=== PATIENT | male | born 1985 | race Two or more races ===

== ENCOUNTER 2024-09-30 09:08 | Emergency (ER) | payer MEDICAID, SELFPAY ==
[2024-09-30 09:10] VITALS: BMI 29.4
[2024-09-30 09:27] VITALS: BP 149/89; PULSE 86; RESP 18; TEMP 36.4; O2SAT 98; BMI 31.3
--- NOTE | 2024-09-30 09:32 | XR_ITS ---
Examination: Foot, right, 3 views Technique: AP, oblique, lateral views foot, 3 views Date and time of exam: September 30, 2024 0942 hours INDICATIONS: Nonhealing wounds second third and fourth digits with pain beginning 9 days ago, diabetic FINDINGS: Moderate osteopenia Soft tissue swelling involving the digits Soft tissue vascular calcification No basil cortical bone destruction Moderate osteoarthritis first metatarsophalangeal joint Plantar posterior bony calcaneal spurs IMPRESSION: No basil cortical bone destruction MRI foot without contrast follow-up would best assess for early osteomyelitis
--- NOTE | 2024-09-30 09:32 | PD.EDRME ---
Rapid Medical Screening Exam RME Arrival date/time: 09/30/24 09:08 39-year-old male insulin-dependent diabetic presents emergency department complaints of injury to the right foot patient reports discoloration of the right foot secondary to injury Chief Complaint: Ankle/Foot Injury Time Seen by Provider: 09/30/24 09:26 Vital signs: Vital Signs Temperature 97.5 F 09/30/24 09:27 Pulse Rate 86 09/30/24 09:27 Respiratory Rate 18 09/30/24 09:27 Blood Pressure 149/89 H 09/30/24 09:27 Pulse Oximetry (%) 98 09/30/24 09:27 Oxygen Delivery Method Room Air 09/30/24 09:27
[2024-09-30 10:08] LABS: Lactate (Lactic Acid) 1.2 mMol/L (0.4-2.0)
[2024-09-30 10:11] LABS: Basophils % (Auto) 0 % (0-2.5); Eosinophils # (Auto) 0.1 Thou/mm3 (0.0-0.5); Eosinophils % (Auto) 1 % (0-10); Hematocrit 42.4 % (41.0-53.0); Hemoglobin 14.8 g/dL (13.5-16.0); Immature Granulocytes % (Auto) 1 % (0-0); Immature Granulocytes Auto 0.05 Thou/mm3 (0.00-0.00); Lymphocytes # (Auto) 1.9 Thou/mm3 (1.0-4.8); Lymphocytes % (Auto) 22 % (10-50); Mean Corpuscular HGB Conc 34.9 g/dl (31.0-37.0); Mean Corpuscular Hemoglobin 28.8 pg (25.0-35.0); Mean Corpuscular Volume 83 fL (80-100); Monocytes # (Auto) 0.7 Thou/mm3 (0.0-0.8); Monocytes % (Auto) 8 % (0-12); Neutrophils # (Auto) 5.9 Thou/mm3 (1.8-7.7); Neutrophils % (Auto) 68 % (37-80); Nucleated Red Blood Cell % 0 /100 WBC (0); Platelet Count 286 Thou/mm3 (140-440); RDW Standard Deviation 35.3 fL (35.1-43.9); Red Blood Count 5.13 Miln/mm3 (4.50-5.90); White Blood Count 8.7 Thou/mm3 (3.8-10.6)
[2024-09-30 10:22] LABS: Sed Rate (ESR) 13 mm/hr (0-15)
[2024-09-30 10:39] LABS: Glucose Estimated Average 232 mg/dL (80-131); Hemoglobin A1C 9.7 % Hgb (4.8-6.0)
[2024-09-30 10:40] LABS: Alanine Aminotransferase 29 U/L (10-49); Albumin, Serum 4.8 gm/dL (3.5-5.0); Albumin/Globulin Ratio 1.5 (1.2-2.2); Alkaline Phosphatase 165 U/L (46-116); Anion Gap 5 (7-16); Aspartate Amino Transferase 20 U/L (0-34); BUN/Creatinine Ratio 15 Ratio (12-20); Bilirubin,Total 0.8 mg/dL (0.3-1.2); Blood Urea Nitrogen 16 mg/dL (9-23); C-Reactive Protein 1.5 mg/dL (0.0-0.9); Calcium 9.8 mg/dL (8.3-10.6); Calcium (Corrected) 9.8 mg/dL (8.5-10.1); Carbon Dioxide 30.1 mMol/L (20.0-31.0); Chloride 98 mMol/L (98-107); Creatinine (Component) 1.1 mg/dL (0.6-1.3); Estimated Creatinine Clearance 101.1 mL/min (>60); Globulin 3.2 gm/dL (2.3-3.5); Glucose 304 mg/dL (74-106); Osmolality,Calculated 278 (275-295); Potassium 4.4 mMol/L (3.4-5.1); Procalcitonin < 0.04 ng/ml (0.0-0.49); Sodium 133 mMol/L (136-145); eGFR > 60 See Note
--- NOTE | 2024-09-30 14:06 | EDNOTE_ITS ---
ED General RME/HPI General Chief complaint: Ankle/Foot Injury Stated complaint: WOUND TO RIGHT FOOT, RED AND SCABBED X9 DAYS Time Seen by Provider: 09/30/24 09:26 Arrival date/time: 09/30/24 09:08 CC: Blackness to the tip of the toes on his right foot. HPI on September 23 the patient states he rolled his foot while walking with shoes on and did not pay attention with his foot until a week later when he noticed there was something wrong with his toes. The patient then noticed that the tip of his toes turned black. The patient is a diabetic well-managed, patient denies any localized fever or pain. RME / HPI RME / HPI narrative: 09/30/24 09:08 39-year-old male insulin-dependent diabetic presents emergency department complaints of injury to the right foot patient reports discoloration of the right foot secondary to injury Related Data Previous Rx's ?Medication ?Instructions ?Recorded blood-glucose sensor (FreeStyle #2 ea 10/25/23 Shelly 3 Sensor device) insulin glargine 100 unit/mL (3 10 unit (0.1 mL) subcut QPM #15 mL 10/25/23 mL) subcutaneous pen pen needle, diabetic 29 gauge x #100 ea 10/25/23 1/2 (Pen Needle) atorvastatin 40 mg tablet 40 mg PO QPM #14 tabs 10/26/23 Allergies Allergy/AdvReac Type Severity Reaction Status Date / Time No Known Allergies Allergy Verified 09/30/24 09:12 Review of Systems Review of Systems Narrative Review of Systems: GEN: No fever, no chills, no weight loss EYES: No discharge, no visual changes, no pain HEENT: No ear pain, no congestion, no sore throat PULM: No shortness of breath, no cough, no congestion CV: No chest pain, no dyspnea on exertion, no palpitations GI: No nausea, no vomiting, no diarrhea, no pain, no constipation : No frequency, no urgency, no dysuria MUSC/SKEL: No joint pain, no back pain SKIN: Darkness to tip of toes, no rash PSYCH: No hallucinations, no depression HEME/LYMPH: No easy bleeding or bruising tendencies NEURO: No weakness, no headache ED Exam Narrative Physical exam: [General: Obese not in c acute distress Head normocephalic HEENT: Within acceptable limits Neck is supple nontender Chest equal chest rise nontender to palpation Respiratory: Clear to auscultation no wheezes crackles or rubs CV: Rate rhythm is regular no murmurs rubs or clicks Abdomen is distended secondary to body habitus soft nontender no masses positive bowel sounds all 4 quadrants Back: No CVA tenderness no spinous process tenderness from cervical spine thoracic and lumbar spine Skin: Eschar to the tip of the toes 3 4 and 5 on the right foot, there is cap refill less than 2 seconds in all the toes good range of motion no streaking erythema edema no open fissures or erosion between the toes on the ball of the foot. Otherwise skin is intact no petechiae rash induration ulceration or crepitus Extremities: Moving all extremity against resistance cap refill less than 2 seconds neurosensory intact Neuro: Awake alert oriented x3 Glascow coma 15 no focal deficits] Course Quality Measures none Orders Category Date Time Status XR foot comp RT min 3V Stat Exams 09/30/24 09:32 Completed A1C [Glycohemoglobin w (eAG)] Stat Lab 09/30/24 09:51 Completed Blood Culture (Lab) Stat Lab 09/30/24 09:51 Received CBC Stat Lab 09/30/24 09:51 Completed CMP [Comprehensive Metabolic Panel] Stat Lab 09/30/24 09:51 Completed CRP [C-Reactive Protein] Stat Lab 09/30/24 09:51 Completed ESR [Sed Rate (ESR)] Stat Lab 09/30/24 09:51 Completed Lactic Acid [Lactate (Lactic Acid)] Stat Lab 09/30/24 09:51 Completed Procalcitonin Stat Lab 09/30/24 09:51 Completed Vital Signs Vital signs: Vital Signs Temperature 97.5 F 09/30/24 09:27 Pulse Rate 86 09/30/24 09:27 Respiratory Rate 18 09/30/24 09:27 Blood Pressure 149/89 H 09/30/24 09:27 Pulse Oximetry (%) 98 09/30/24 09:27 Oxygen Delivery Method Room Air 09/30/24 09:27 [facility] Patient data External records reviewed:: [facility] previous records Clinical information provided by:: patient Social determinants that could affect healthcare access:: none Patient has the following chronic illnesses:: Diabetes How is presenting disease/condition affected by chronic disease/condition?: e xacerbated by Evaluation data The following diagnostics were reviewed and interpreted by me:: lab results and radiology exam(s) Lab and/or radiology exams considered but not ordered:: CBC shows no acute leukocytosis anemia thrombocytopenia CMP shows an elevated blood glucose later level of 320, no other electrolyte imbalances renal impairment transaminitis or T. bili elevation C-reactive protein is mildly elevated X-ray shows no bony erosion of the digits Interpretation Summary: This appears to be more of an eschar type situation without any localized or endemic infection. Will be discharged to follow-up with primary care provider for referral to wound management. Medications Medications considered but not ordered:: None Medication administrations:: None Consultations Consultation(s) initiated? (list below): No Diagnosis Differential Diagnosis ED Complaint MDM: Cellulitis abscess osteomyelitis of the foot Most likely diagnosis given after review of the tests above:: Toe eschar Admission Indicated Admission indicated?: not indicated Explain why admission is indicated or not indicated:: Stable for outpatient follow-up Admission Request Was there a request for admission?: No Disposition Plan Disposition Plan: Discharge Discharge Attestation Discharge Attestation: The patient and all family members were given an opportunity to ask questions and understood the discharge instructions. Discharge instructions specifically effects, indications for sooner follow up or return to the emergency department, and the expected course of current diagnosis. Patient condition: Stable Medical Decision Making Differential Diagnosis Differential Diagnosis: Cellulitis abscess osteomyelitis of the foot Lab Data 09/30/24 09:51 09/30/24 09:51 Labs: Lab Results 09/30/24 Range/Units 09:51 WBC 8.7 (3.8-10.6) Thou/mm3 RBC 5.13 (4.50-5.90) Miln/mm3 Hgb 14.8 (13.5-16.0) g/dL Hct 42.4 (41.0-53.0) % MCV 83 (80-100) fL MCH 28.8 (25.0-35.0) pg MCHC 34.9 (31.0-37.0) g/dl RDW Std Deviation 35.3 (35.1-43.9) fL Plt Count 286 (140-440) Thou/mm3 Neut % (Auto) 68 (37-80) % Lymph % (Auto) 22 (10-50) % Foster % (Auto) 8 (0-12) % Eos % (Auto) 1 (0-10) % Baso % (Auto) 0 (0-2.5) % Neut # (Auto) 5.9 (1.8-7.7) Thou/mm3 Lymph # (Auto) 1.9 (1.0-4.8) Thou/mm3 Foster # (Auto) 0.7 (0.0-0.8) Thou/mm3 Eos # (Auto) 0.1 (0.0-0.5) Thou/mm3 Baso # (Auto) 0.0 (0.0-0.2) Thou/mm3 Immature Gran # (Auto) 0.05 H (0.00-0.00) Thou/mm3 Absolute Nucleated RBC 0.00 (0.00-0.00) Thou/mm3 Immature Gran % 1 H (0-0) % Nucleated RBC % 0 (0) /100 WBC ESR 13 (0-15) mm/hr Sodium 133 L (136-145) mMol/L Potassium 4.4 (3.4-5.1) mMol/L Chloride 98 (98-107) mMol/L Carbon Dioxide 30.1 (20.0-31.0) mMol/L Anion Gap 5 L (7-16) BUN 16 (9-23) mg/dL Creatinine 1.1 (0.6-1.3) mg/dL Estim Creat Clear Calc 101.1 (>60) mL/min eGFR > 60 (60 - ) See Note BUN/Creatinine Ratio 15 (12-20) Ratio Glucose 304 H (74-106) mg/dL Estimated Ave Glu mg/dL 232 H (80-131) mg/dL Hemoglobin A1c 9.7 H (4.8-6.0) % Hgb Calculated Osmolality 278 (275-295) Lactic Acid 1.2 (0.4-2.0) mMol/L Calcium 9.8 (8.3-10.6) mg/dL Corrected Calcium 9.8 (8.5-10.1) mg/dL Total Bilirubin 0.8 (0.3-1.2) mg/dL AST 20 (0-34) U/L ALT 29 (10-49) U/L Alkaline Phosphatase 165 H (46-116) U/L C-Reactive Prot, Quant 1.5 H (0.0-0.9) mg/dL Total Protein 8.0 (5.7-8.2) gm/dL Albumin 4.8 (3.5-5.0) gm/dL Globulin 3.2 (2.3-3.5) gm/dL Albumin/Globulin Ratio 1.5 (1.2-2.2) Procalcitonin < 0.04 (0.0-0.49) ng/ml Discharge Plan Plan Patient Disposition: HOME (Self Care) Patient condition on transfer: Stable Prescriptions/Referrals Prescriptions/Med Rec: No Action insulin glargine 100 unit/mL (3 mL) insulin pen 10 unit subcut QPM Qty: 15 0RF (DME) pen needle, diabetic [Pen Needle] 29 gauge x 1/2 needle See Rx Instructions .Route Qty: 100 0RF Rx Instructions: Once per day (DME) FreeStyle Shelly 3 Sensor Device See Rx Instructions .Route Qty: 2 0RF Rx Instructions: Use daily atorvastatin 40 mg tablet 40 mg PO QPM Qty: 14 0RF Referrals: Skyler Guerra MD [Primary Care Provider] - In 1 week Problem List Clinical Impression: Diabetes mellitus, Eschar of toe, Hyperglycemia Patient/Caregiver Discharge Instructions Other Activity Instructions:: Keep your toes clean and dry take a picture of them every day, expect them every day. Follow-up with your primary care provider, get a referral for wound management if there is redness pus or streaking in the foot return immediately to the ER for reevaluation. Education Materials: Diabetes: Meal Planning Print Language: Greenlandic Stand Alone Forms: Ileana Award Info., Patient Portal Info Letter, Work/School Release NGA/NANO Supervising Physician NGA/NANO Supervising Physician: Frankie Marion ENP
[2024-09-30 15:15] VITALS: BP 120/60; PULSE 71; RESP 16; O2SAT 98
== END 2024-09-30 15:15 | disposition home or self-care (01) ==
PROVIDERS: Nurse Practitioner Primary Care; Emergency Provider Emergency Medicine; PCP Family Medicine
DX: S99.921A Unspecified injury of right foot, initial encounter (principal); X50.1XXA Overexertion from prolonged static or awkward postures, initial encounter; Y93.01 Activity, walking, marching and hiking
CPT/HCPCS: 36415; 73630; 80053; 83036; 83605; 84145; 85025; 85652; 86140; 87040; 99283

== ENCOUNTER 2024-10-27 12:08 | Inpatient (IN) | payer MEDICAID, SELFPAY ==
[2024-10-27 12:30] VITALS: BP 135/87; PULSE 88; RESP 19; TEMP 37.2; O2SAT 98; BMI 29.0
--- NOTE | 2024-10-27 12:31 | XR_ITS ---
Examination: Foot, right, 3 views Technique: AP, oblique, lateral views foot, 3 views Date and time of exam: October 27, 2024 1258 hours INDICATIONS: Nonhealing wound involving the foot this week FINDINGS: Fracture at the base of the proximal phalanx fourth digit Prominent osteomyelitis proximal middle and distal phalanges fourth digit Also osteomyelitis ungual tuft tip 6 distal phalanges third and second digits IMPRESSION: Extensive osteomyelitis, consider MRI foot without contrast follow-up
--- NOTE | 2024-10-27 12:31 | PD.EDRME ---
Rapid Medical Screening Exam RME Arrival date/time: 10/27/24 12:08 39-year-old male presents emergency department today complains of infection to the right foot patient had outpatient imaging which shows the patient is osteomyelitis Chief Complaint: Ankle/Foot Injury
[2024-10-27 12:49] LABS: Lactate (Lactic Acid) 0.9 mMol/L (0.4-2.0)
[2024-10-27 12:54] LABS: Basophils % (Auto) 0 % (0-2.5); Eosinophils # (Auto) 0.1 Thou/mm3 (0.0-0.5); Eosinophils % (Auto) 1 % (0-10); Hematocrit 41.8 % (41.0-53.0); Hemoglobin 14.2 g/dL (13.5-16.0); Immature Granulocytes % (Auto) 0 % (0-0); Immature Granulocytes Auto 0.03 Thou/mm3 (0.00-0.00); Lymphocytes # (Auto) 2.2 Thou/mm3 (1.0-4.8); Lymphocytes % (Auto) 22 % (10-50); Mean Corpuscular Hemoglobin 27.8 pg (25.0-35.0); Mean Corpuscular Volume 82 fL (80-100); Monocytes # (Auto) 0.7 Thou/mm3 (0.0-0.8); Monocytes % (Auto) 7 % (0-12); Neutrophils # (Auto) 7.2 Thou/mm3 (1.8-7.7); Neutrophils % (Auto) 71 % (37-80); Nucleated Red Blood Cell % 0 /100 WBC (0); Platelet Count 451 Thou/mm3 (140-440); RDW Standard Deviation 34.9 fL (35.1-43.9); White Blood Count 10.2 Thou/mm3 (3.8-10.6)
[2024-10-27 13:10] LABS: Sed Rate (ESR) 46 mm/hr (0-15)
[2024-10-27 13:16] LABS: INR 1.1 (0.9-1.3)
[2024-10-27 13:18] LABS: Alanine Aminotransferase 21 U/L (10-49); Albumin, Serum 4.8 gm/dL (3.5-5.0); Albumin/Globulin Ratio 1.3 (1.2-2.2); Alkaline Phosphatase 146 U/L (46-116); Anion Gap 6 (7-16); BUN/Creatinine Ratio 18 Ratio (12-20); Bilirubin,Total 0.6 mg/dL (0.3-1.2); Blood Urea Nitrogen 18 mg/dL (9-23); C-Reactive Protein 2.1 mg/dL (0.0-0.9); Calcium 9.8 mg/dL (8.3-10.6); Calcium (Corrected) 9.8 mg/dL (8.5-10.1); Carbon Dioxide 29.4 mMol/L (20.0-31.0); Chloride 96 mMol/L (98-107); Estimated Creatinine Clearance 110.6 mL/min (>60); Globulin 3.8 gm/dL (2.3-3.5); Glucose 250 mg/dL (74-106); Osmolality,Calculated 272 (275-295); Potassium 4.5 mMol/L (3.4-5.1); Procalcitonin 0.05 ng/ml (0.0-0.49); Sodium 131 mMol/L (136-145); Total Protein 8.6 gm/dL (5.7-8.2); eGFR > 60 See Note
[2024-10-27 13:22] LABS: Aspartate Amino Transferase 12 U/L (0-34)
--- NOTE | 2024-10-27 16:11 | EDNOTE_ITS ---
ED General RME/HPI General Chief complaint: Ankle/Foot Injury Stated complaint: RIGHT 3 TOES INFECTED/BLACKENED; POSSIBLE AMPUT Time Seen by Provider: 10/27/24 16:00 Arrival date/time: 10/27/24 12:08 CC: Right foot pain HPI patient is a diabetic who tripped while walking, damaging his fourth and fifth digit of his toes 1 month ago and they have progressively gotten worse now they are black in the tip. Patient states localized pain is a 2-3 on a 10 scale. Patient was seen by PCP and referred to the ER for rule out osteomyelitis. Patient admits his diabetes have been poorly managed. RME / HPI RME / HPI narrative: 10/27/24 12:08 39-year-old male presents emergency department today complains of infection to the right foot patient had outpatient imaging which shows the patient is osteomyelitis Related Data Previous Rx's ?Medication ?Instructions ?Recorded blood-glucose sensor (FreeStyle #2 ea 10/25/23 Shelly 3 Sensor device) insulin glargine 100 unit/mL (3 10 unit (0.1 mL) subcut QPM #15 mL 10/25/23 mL) subcutaneous pen pen needle, diabetic 29 gauge x #100 ea 10/25/23 1/2 (Pen Needle) atorvastatin 40 mg tablet 40 mg PO QPM #14 tabs 10/26/23 Allergies Allergy/AdvReac Type Severity Reaction Status Date / Time No Known Allergies Allergy Verified 10/27/24 12:10 Review of Systems Review of Systems Narrative Review of Systems: GEN: No fever, no chills, no weight loss EYES: No discharge, no visual changes, no pain HEENT: No ear pain, no congestion, no sore throat PULM: No shortness of breath, no cough, no congestion CV: No chest pain, no dyspnea on exertion, no palpitations GI: No nausea, no vomiting, no diarrhea, no pain, no constipation : No frequency, no urgency, no dysuria MUSC/SKEL: No joint pain, no back pain SKIN: No rash PSYCH: No hallucinations, no depression HEME/LYMPH: No easy bleeding or bruising tendencies NEURO: No weakness, no headache Past Medical History Past Medical History NEUROLOGIC: Negative Neurological Disorders CARDIAC: Positive Cardiac Disorders and Hypertension; Negative Congestive Heart Failure RESPIRATORY: Negative Chronic Obstructive Pulmonary Disease (COPD) GASTROINTESTINAL: Negative Gastrointestinal Disorders GENITOURINARY: Negative Genitourinary Disorders or Renal Disease MUSCULOSKELETAL: Negative Musculoskeletal Disorders ENDOCRINE: Negative Endocrine Disorders, Diabetes Mellitus Type 1 or Diabetes Mellitus Type 2 HEMATOLOGIC: Negative Blood Disorders Social History SMOKING STATUS: Light (< 1 pack/day) ED Exam Narrative Physical exam: [General: Not in any acute distress Head normocephalic HEENT: Within acceptable limits Neck is supple nontender Chest equal chest rise nontender to palpation Respiratory: Clear to auscultation no wheezes crackles or rubs CV: Rate rhythm is regular no murmurs rubs or clicks Abdomen is soft nontender no masses positive bowel sounds all 4 quadrants Back: No CVA tenderness no spinous process tenderness from cervical spine thoracic and lumbar spine Skin: Right lower extremity: Foot: Patient has eschar to the tip of the fourth and fifth digit with open ulceration that is serous oozing proximal to this, there is no streaking or erythema to the dorsum of the foot nor any sole or foot involvement. Otherwise skin is intact no petechiae rash induration ulceration or crepitus Extremities: Decreased range of motion of the toes secondary to pain. Moving all other extremities against resistance cap refill less than 2 seconds neurosensory intact Neuro: Awake alert oriented x3 Glascow coma 15 no focal deficits] Course Course Course Narrative: Patient's case discussed with resident for Dr. Cooper agrees to accept the patient for admission. Quality Measures none Orders Category Date Time Status Admit to Inpatient Status Routine Admission 10/27/24 17:17 Active Patient Condition Routine Admission 10/27/24 17:17 Ordered Activity as Tolerated Routine Care 10/27/24 17:18 Ordered Continuous Pulse Oximetry NOW Care 10/27/24 17:19 Completed Education, Diabetic NOW Care 10/27/24 17:30 Ordered NPO after Midnight ONCE Care 10/27/24 17:19 Active Notify provider NEEDED Care 10/27/24 17:17 Active Saline [Insert IV] NOW Care 10/27/24 16:09 Active Sequential Compression Device QSHIFT Care 10/27/24 17:19 Active Wound Care PRN Care 10/27/24 17:22 Active Consult to General Surgery Stat Cons 10/27/24 16:10 Ordered Referral Registered Dietitian Routine Cons 10/27/24 17:22 Active Diet Carbohydrate Consistent Diet 10/27/24 Dinner Active Diet NPO after Midnight Diet 10/28/24 00:01 Active XR foot comp RT min 3V Stat Exams 10/27/24 12:31 Completed A1C [Glycohemoglobin w (eAG)] AM DRAW Lab 10/28/24 05:00 Ordered Blood Culture (Lab) Stat Lab 10/27/24 12:30 Received CBC AM DRAW Lab 10/28/24 05:00 Ordered CBC AM DRAW Lab 10/29/24 05:00 Ordered CBC AM DRAW Lab 10/30/24 05:00 Ordered CBC Stat Lab 10/27/24 12:35 Completed CMP [Comprehensive Metabolic Panel] AM DRAW Lab 10/29/24 05:00 Ordered CMP [Comprehensive Metabolic Panel] AM DRAW Lab 10/30/24 05:00 Ordered CMP [Comprehensive Metabolic Panel] Stat Lab 10/27/24 12:35 Completed CRP [C-Reactive Protein] Stat Lab 10/27/24 12:35 Completed Comprehensive Metabolic Panel AM DRAW Lab 10/28/24 05:00 Ordered ESR [Sed Rate (ESR)] Stat Lab 10/27/24 12:35 Completed Lactic Acid [Lactate (Lactic Acid)] Stat Lab 10/27/24 12:35 Completed Lipid Panel AM DRAW Lab 10/28/24 05:00 Ordered PT [Prothrombin Time with INR] Stat Lab 10/27/24 12:35 Completed Procalcitonin Stat Lab 10/27/24 12:35 Completed Thyroid Stimulating Hormone AM DRAW Lab 10/28/24 05:00 Ordered Wound Culture and Gram Stain Routine Lab 10/27/24 17:31 Ordered Acetaminophen Tab [Tylenol Tab] Med 10/27/24 17:19 Active 650 mg PO Q6H PRN Dextrose 50% Syr [D50w Syringe Abboject] Med 10/27/24 17:23 Active 25 ml IV Q15MIN PRN Dextrose 50% Syr [D50w Syringe Abboject] Med 10/27/24 17:23 Active 50 ml IV Q15MIN PRN Glucagon Inj Med 10/27/24 17:23 Active 1 mg IM Q15MIN PRN HYDROcodone*/APAP 5/325 [Post 5/325] Med 10/27/24 17:19 Active 1 tab PO Q4HR PRN INSULIN LISPRO (AdmeLOG) [HumaLOG] Med 10/27/24 18:00 Active See Protocol SC Q6HR Insulin Glargine Inj [Lantus Inj] Med 10/27/24 21:00 Active 10 unit SC HS Nicotine Patch [Nicoderm Patch] Med 10/27/24 17:45 Active 7 mg TOP QDAY Piper/Tazo Inj [Zosyn Inj] 3.375 gm Med 10/27/24 16:09 Discontinued Sodium Chloride 0.9% (P) [Ns 0.9% (P)] 50 ml IV X1 Tet,Diphth,Pertuss(Acell)-Tdap [Boostrix Vacc] Med 10/27/24 17:32 Discontinued 0.5 ml IMI .ONCE ONE Vancomycin Inj 1,000 mg Med 10/27/24 17:45 Discontinued Vancomycin Inj 750 mg Sodium Chloride 0.9% 500 ml [Ns] 500 ml IV X1 Vancomycin Pharmacy to Dose Med 10/27/24 17:30 Active 1 each IV QDAY cefTRIAXone [Rocephin] 2 gm Med 10/28/24 01:00 Active Sodium Chloride 0.9% (P) [Ns 0.9% (P)] 50 ml IV QDAY@2100 Code Status Routine Oth 10/27/24 17:17 Ordered Oxygen Delivery PRN RT 10/27/24 17:19 Active Vital Signs Vital signs: Vital Signs Temperature 99.0 F 10/27/24 12:30 Pulse Rate 88 10/27/24 12:30 Respiratory Rate 19 10/27/24 12:30 Blood Pressure 135/87 H 10/27/24 12:30 Pulse Oximetry (%) 98 10/27/24 12:30 Oxygen Delivery Method Room Air 10/27/24 12:30 [facility] Patient data External records reviewed:: [facility] previous records Clinical information provided by:: patient Social determinants that could affect healthcare access:: none Patient has the following chronic illnesses:: Diabetes How is presenting disease/condition affected by chronic disease/condition?: e xacerbated by Evaluation data The following diagnostics were reviewed and interpreted by me:: lab results and radiology exam(s) Lab and/or radiology exams considered but not ordered:: CBC shows no acute leukocytosis anemia thrombocytopenia CMP shows elevated blood glucose level mild hyponatremia, no other electrolyte imbalances renal impairment transaminitis or T. bili elevation. Coags within acceptable limits C-reactive protein of 2.1 ESR at 46. Pro-Too is negative Osteomyelitis of the fourth fifth and second digits of the foot as interpreted by me read by radiology Interpretation Summary: Osteomyelitis is significant to the toes. Discussed with Dr. Batista agrees to consult. Will admit the patient for long-term antibiotics. Medications Medications considered but not ordered:: None Medication administrations:: Medication Administration History Acetaminophen (Acetaminophen 325 Mg Tablet) 650 mg PO Q6H PRN PRN Reason: Mild Pain 1-3 or Fever >100.4 Stop: 11/26/24 17:18 Hydrocodone Bitart/Acetaminophen (Hydrocodone/Apap 5/325 Tablet) 1 tab PO Q4HR PRN PRN Reason: PAIN SCALE 4-6 (Moderate Stop: 11/01/24 17:18 Dextrose (Dextrose 50%-Water Inj 50 Ml Syringe) 25 ml IV Q15MIN PRN PRN Reason: BG 50-70 responsive npo pt Stop: 11/26/24 17:22 Dextrose (Dextrose 50%-Water Inj 50 Ml Syringe) 50 ml IV Q15MIN PRN PRN Reason: BG <50 OR BG <70 & pt unresponsive Stop: 11/26/24 17:22 Glucagon (Glucagon Inj 1 Mg Vial) 1 mg IM Q15MIN PRN PRN Reason: BG <70, and no IV access Heparin Sodium (Porcine) (Heparin Sod Inj 5000 Unit/Ml Vial) 5,000 unit SC Q12H [facility] Stop: 11/10/24 18:14 Last Admin: 10/27/24 18:48 Dose: 5,000 unit Documented By: Co-signed By: BASSEM Ceftriaxone Sodium 2 gm/ (Sodium Chloride) 50 mls @ 100 mls/hr IV QDAY@2100 RAMILA Stop: 11/04/24 00:59 Insulin Glargine (Insulin Glargine (Lantus) 5 Unit/0.05 Ml (Per 5 Units)) 10 unit SC HS [facility] Stop: 11/26/24 20:59 Insulin Human Lispro (Insulin Lispro (Admelog) 1 Unit/0.01 Ml Unit) 0 unit SC Q6HR [facility]; Protocol Stop: 11/26/24 17:59 Last Admin: 10/27/24 18:49 Dose: 2 unit Documented By: MS Co-signed By: BASSEM Morphine Sulfate (Morphine Sulf Inj 10 Mg/Ml Vial) 1 mg IVP Q4HR PRN PRN Reason: PAIN SCALE 7-10(Mod-Sev Stop: 11/01/24 18:01 Nicotine (Nicotine Patch 7 Mg/24 Hr Patch.Td24) 7 mg TOP QDAY [facility]ILA Stop: 11/26/24 17:44 Last Admin: 10/27/24 18:52 Dose: Not Given Documented By: Non-Admin Reason: Patient Refused Pharmacy Consult (Vancomycin Pharmacy To Dose 1 Each Each) 1 each IV QDAY [facility]ILA Stop: 11/26/24 17:29 Last Admin: 10/27/24 19:09 Dose: Not Given Documented By: BASSEM Non-Admin Reason: Duplicate Medication on eMAR Discontinued Medications Diphtheria/Tetanus/Acell Pertussis (Diphth,Pertuss(Acell),Tet Vac 0.5 Ml Vial) 0.5 ml IMi .ONCE ONE Stop: 10/27/24 17:33 Last Admin: 10/27/24 18:55 Dose: 0.5 ml Documented By: Piperacillin Sod/Tazobactam (Sod 3.375 gm/ Sodium Chloride) 50 mls @ 100 mls/hr IV X1 ONE Stop: 10/27/24 16:38 Last Infusion: 10/27/24 17:24 Dose: Infused Documented By: Admin: 10/27/24 16:41 Dose: 100 mls/hr Documented By: Vancomycin HCl 1,000 mg/Vancomycin HCl 750 mg/ Sodium Chloride 500 mls @ 175 mls/hr IV X1 ONE Stop: 10/27/24 20:36 Last Admin: 10/27/24 18:48 Dose: 175 mls/hr Documented By: None Consultations Consultation(s) initiated? (list below): No Diagnosis Differential Diagnosis ED Complaint MDM: Osteomyelitis cellulitis abscess Most likely diagnosis given after review of the tests above:: Foot osteomyelitis Admission Indicated Admission indicated?: indicated Explain why admission is indicated or not indicated:: Further medical management Admission Request Was there a request for admission?: No Disposition Plan Disposition Plan: Admit Medical Decision Making Differential Diagnosis Differential Diagnosis: Osteomyelitis cellulitis abscess Lab Data 10/27/24 12:35 10/27/24 12:35 Labs: Lab Results 10/27/24 Range/Units 12:35 WBC 10.2 (3.8-10.6) Thou/mm3 RBC 5.10 (4.50-5.90) Miln/mm3 Hgb 14.2 (13.5-16.0) g/dL Hct 41.8 (41.0-53.0) % MCV 82 (80-100) fL MCH 27.8 (25.0-35.0) pg MCHC 34.0 (31.0-37.0) g/dl RDW Std Deviation 34.9 L (35.1-43.9) fL Plt Count 451 H D (140-440) Thou/mm3 Neut % (Auto) 71 (37-80) % Lymph % (Auto) 22 (10-50) % Zapata % (Auto) 7 (0-12) % Eos % (Auto) 1 (0-10) % Baso % (Auto) 0 (0-2.5) % Neut # (Auto) 7.2 (1.8-7.7) Thou/mm3 Lymph # (Auto) 2.2 (1.0-4.8) Thou/mm3 Zapata # (Auto) 0.7 (0.0-0.8) Thou/mm3 Eos # (Auto) 0.1 (0.0-0.5) Thou/mm3 Baso # (Auto) 0.0 (0.0-0.2) Thou/mm3 Immature Gran # (Auto) 0.03 H (0.00-0.00) Thou/mm3 Absolute Nucleated RBC 0.00 (0.00-0.00) Thou/mm3 Immature Gran % 0 (0-0) % Nucleated RBC % 0 (0) /100 WBC ESR 46 H (0-15) mm/hr PT 12.0 (9.0-12.2) Seconds INR 1.1 (0.9-1.3) Sodium 131 L (136-145) mMol/L Potassium 4.5 (3.4-5.1) mMol/L Chloride 96 L (98-107) mMol/L Carbon Dioxide 29.4 (20.0-31.0) mMol/L Anion Gap 6 L (7-16) BUN 18 (9-23) mg/dL Creatinine 1.0 (0.6-1.3) mg/dL Estim Creat Clear Calc 110.6 (>60) mL/min eGFR > 60 (60 - ) See Note BUN/Creatinine Ratio 18 (12-20) Ratio Glucose 250 H (74-106) mg/dL Calculated Osmolality 272 L (275-295) Lactic Acid 0.9 (0.4-2.0) mMol/L Calcium 9.8 (8.3-10.6) mg/dL Corrected Calcium 9.8 (8.5-10.1) mg/dL Total Bilirubin 0.6 (0.3-1.2) mg/dL AST 12 (0-34) U/L ALT 21 (10-49) U/L Alkaline Phosphatase 146 H (46-116) U/L C-Reactive Prot, Quant 2.1 H (0.0-0.9) mg/dL Total Protein 8.6 H (5.7-8.2) gm/dL Albumin 4.8 (3.5-5.0) gm/dL Globulin 3.8 H (2.3-3.5) gm/dL Albumin/Globulin Ratio 1.3 (1.2-2.2) Procalcitonin 0.05 (0.0-0.49) ng/ml Discharge Plan Plan Patient Disposition: HOME (Self Care) Patient condition on transfer: Stable Problem List Clinical Impression: Acute osteomyelitis of toe of right foot PA/[employer] Supervising Physician NGA/[employer] Supervising Physician: Frankie Marion ENP
[2024-10-27 16:31] VITALS: BP 146/103; PULSE 77; RESP 18; TEMP 36.7; O2SAT 96
[2024-10-27] MEDS: PIPER/TAZO INJ 3.375 GM in SODIUM CHLORIDE 0.9% (P) 50 ML IV (16:41)
[2024-10-27 17:35] VITALS: PULSE 79; RESP 18; RESP 99
--- NOTE | 2024-10-27 17:45 | ESHP_ITS ---
<Statement entered by Dejon Regan MD - 10/27/24 18:01> Patient was seen and examined at the bedside. This patient 39-year-old male with past medical history of DM type II, hypertension, active smoking presented to the ED with complaint of right foot pain after tripping off a month ago. Patient was recently discharged from the hospital for management of DKA. Foot x-ray was consistent with osteomyelitis. Surgery has been consulted for further evaluation. Started 2 g ceftriaxone and IV vancomycin and ordered blood cultures with MRSA screen with wound care. Surgery will see the patient today. Patient is open to proceed with surgery/amputation if needed. Will keep him n.p.o. after midnight and follow surgery recommendations. Ordered basal bolus insulin regime for blood sugar management. Med rec pending. All labs and orders were reviewed. I saw and examined the patient, and I agree with current management stated by Dr Star MD,PGY1. Plan of care was discussed with the attending physician and resident physician. Disclaimer: Despite multiple revisions, due to the dictation software being used, the document bellow may not be free of grammatical errors including phonetic/typographic errors. However, this does not deter from our commitment to providing health care in the patient's best interest in mind. Dr. Shereen MD, PGY 2 Documentation for date of: 10/27/24 HPI History of Present Illness History of present illness: CC: Right foot wound Patient is a 39-year-old male with a past medical history of diabetes mellitus type 2 on insulin, cigarette use, and stated past medical history of HTN resolved. Patient presented to the emergency room with a chief complaint of of right foot pain secondary to trauma occurring about 1 month ago. Patient stated that he has been having subjective pyrexia and chills at home. Pain 2/10. Patient stated he tripped on a rock and hit his foot on that rock killing his skin back. Patient stated he has never had this happen before. Stated he follows with PCP Dr. Arredondo who recently prescribed amoxicillin/clavulanate 875 125 mg tablet as an outpatient approximately 1 week ago. Patient stated he has not seen improvement since. Patient cannot recall when his last tetanus shot was. Patient recently seen in the ER and discharged from the ER on 09/30/2024 wenc at that time foot x-ray showed soft tissue swelling involving the digits with no basil bone destruction of the right foot-at that time not DC'd on antibiotics. Previous hospitalization 10/25/2023 was diagnosed with diabetes mellitus/DKA. Patient stated he takes metformin 1000 twice daily, insulin Lantus 10 units at bedtime. positive for polydipsia. Admitted on 10/27/2024 for osteomyelitits of right foot. ER Course: Vitals: Temperature 99, BP 135/87, HR 88, RR 19, P O2 98% RA Foot X-ray (10/27/2024): Fracture at the base of the proximal phalanx fourth digit Prominent osteomyelitis proximal middle and distal phalanges fourth digit Also osteomyelitis ungual tuft tip 6 distal phalanges third and second digits WBC (10/27/2024): 10.2 CMP (10/27/2024): NA 131--->Na corrected 133, osmolarity 272 K4.5, BUN 18, creatinine 1, GFR greater than 60, Glucose 250, Alkaline Phosphatase 146 (H), C- Reactive Prot 2.1 Utox (10/22/2024) negative A1c (10/22/2024) 9.7, Estimate Glucose 232 (10/22/2024) Piperacillin/Tazobactam X1 PMH: Diabetes Mellitus Type 2-insulin dependent HTN (stated no longer an active problem) Smoking (tobacco) Past Surgical History: Remote Rotator cuff surgery Home Medication: Lantus 10 units HS Metformin 1000 BID Social History: Alcohol socially Tobacco/cigarettes 10+ years about 1 pack per week-->2 pack year Denied illicit drug use Allergies: None Code Status: Fulle Code Review of Systems Review of Systems Narrative Review of Systems: General appearance: NO weight change, NO fatigue, NO weakness, YES Subjective fever, NO chills, NO night sweats, No cough Skin: NO rash, NO itching, NO sores, NO moles HEENT: YES Trauma-stabled right foot with rock-one month ago, NO nausea, NO vomiting, NO visual changes, NO blurry vision, NO double vision, NO tinnitus, NO vertigo, NO ear discharge, NO rhinorrhea, NO stuffiness, NO sneezing, NO allergy, NO epistaxis. NO Hoarseness, NO sore throat, NO swollen neck. Cardiac: NO Palpitations, NO dyspnea on exertion, NO orthopnea, NO paroxysmal nocturnal dyspnea, NO edema Respiratory: NO Shortness of Breath, NO Wheezing, NO Cough, NO Sputum, NO hemoptysis GI:NO appetite, NO nausea, NO vomiting, NO dysphagia, NO changes in bowel frequency, NO stool color, NO diarrhea, NO constipation, NO hemetemesis, NO hemorrhoids, NO melena, NO hematechezia, NO abdominal pain, NO jaundice Renal: NO frequency, NO hesitancy, NO urgency, NO hematuria, NO nocturia, NO incontinence MSK: NO muscle weakness, NO gout, NO arthritis, NO muscle stiffness Neuro: NO headaches, NO tremors, NO weakness, NO paralysis, NO seizures, NO loss of consciousness, NO numbness. Hem: NO anemia, NO easy bruising/bleeding, NO petechiae, NO purpura Endo: NO heat/cold intolerance, NO excessive sweating, NO polyuria, YES polydipsia, NO polyphagia, NO thyroid problems, YES diabetes Pysch: NO mood, NO anxiety, NO depression Exam Vital Signs Temp Pulse Resp BP Pulse Ox O2 Del Method 98.0 F 77 18 146/103 H 96 Room Air 10/27/24 16:31 10/27/24 16:31 10/27/24 16:31 10/27/24 16:31 10/27/24 16:31 10/27/24 16:31 Narrative Exam General Appearance: Alert & Oriented X3, well-nourished who is lying in bed in no acute distress. R. foot appears erythematous, serous fluid, and possible 3, 4, and 5 digit possible tip necrosis vs clotted blood at tip of phalanx HEENT: Skull symmetrical and atraumatic. Conjunctivae pin and moist. Pupils equal, round, reactive to light and accommodation (PERRL). External ear without lesion or discharge. Straight, nares patient, mucosa pink, no discharge. No thyroid nodule appreciated. No cervical lymphadenopathy. Cardio: Normal Rate and Rhythm with S1 and S2 heart sounds. No murmurs or extra heart sounds auscultated. No bruits on carotid auscultation. No peripheral edema or cyanosis. Lungs: Symmetric with good expansion. Chest and back non-tender. Breath sounds vesicular without crackles, wheezing or rhonchi Abdomen: Non-tender, Non-distended, Normal Reactive Bowel Sounds Neuro: Alert, cooperative, oriented to person, place, and time. Speech clear. CN grossly intact. Upper motor strength 5/5 and Lower motor strength 5/5. Sensation intact. Results: Labs 10/28/24 05:00 10/28/24 05:45 Labs: Short CBC 10/27/24 Range/Units 12:35 WBC 10.2 (3.8-10.6) Thou/mm3 Hgb 14.2 (13.5-16.0) g/dL Hct 41.8 (41.0-53.0) % Plt Count 451 H D (140-440) Thou/mm3 BMP 10/27/24 12:35 Sodium 131 L Potassium 4.5 Chloride 96 L Carbon Dioxide 29.4 BUN 18 Creatinine 1.0 Glucose 250 H Calcium 9.8 Liver Function 10/27/24 Range/Units 12:35 Total Bilirubin 0.6 (0.3-1.2) mg/dL AST 12 (0-34) U/L ALT 21 (10-49) U/L Alkaline Phosphatase 146 H (46-116) U/L Albumin 4.8 (3.5-5.0) gm/dL Quality Measures Quality Measures VTE prophylaxis (Heparin subcut) Medications Home Medications and Allergies Home Medications ?Medication ?Instructions ?Recorded ?Confirmed ?Type metformin 1,000 mg tablet 1,000 mg PO QDAY 10/28/24 10/28/24 History Allergies Allergy/AdvReac Type Severity Reaction Status Date / Time No Known Allergies Allergy Verified 10/27/24 12:10 Visit Medications Acetaminophen (Acetaminophen 325 Mg Tablet) 650 mg PO Q6H PRN PRN Reason: Mild Pain 1-3 or Fever >100.4 Stop: 11/26/24 17:18 Hydrocodone Bitart/Acetaminophen (Hydrocodone/Apap 5/325 Tablet) 1 tab PO Q4HR PRN PRN Reason: PAIN SCALE 4-6 (Moderate Stop: 11/01/24 17:18 Dextrose (Dextrose 50%-Water Inj 50 Ml Syringe) 25 ml IV Q15MIN PRN PRN Reason: BG 50-70 responsive npo pt Stop: 11/26/24 17:22 Dextrose (Dextrose 50%-Water Inj 50 Ml Syringe) 50 ml IV Q15MIN PRN PRN Reason: BG <50 OR BG <70 & pt unresponsive Stop: 11/26/24 17:22 Glucagon (Glucagon Inj 1 Mg Vial) 1 mg IM Q15MIN PRN PRN Reason: BG <70, and no IV access Ceftriaxone Sodium 2 gm/ (Sodium Chloride) 50 mls @ 100 mls/hr IV QDAY@2100 [facility] Stop: 11/04/24 00:59 Vancomycin HCl 1,000 mg/Vancomycin HCl 750 mg/ Sodium Chloride 500 mls @ 175 mls/hr IV X1 ONE Stop: 10/27/24 20:36 Insulin Glargine (Insulin Glargine (Lantus) 5 Unit/0.05 Ml (Per 5 Units)) 10 unit SC HS [facility] Stop: 11/26/24 20:59 Insulin Human Lispro (Insulin Lispro (Admelog) 1 Unit/0.01 Ml Unit) 0 unit SC Q6HR [facility]; Protocol Stop: 11/26/24 17:59 Nicotine (Nicotine Patch 7 Mg/24 Hr Patch.Td24) 7 mg TOP QDAY [facility] Stop: 11/26/24 17:44 Pharmacy Consult (Vancomycin Pharmacy To Dose 1 Each Each) 1 each IV QDAY [facility] Stop: 11/26/24 17:29 Discontinued Medications Diphtheria/Tetanus/Acell Pertussis (Diphth,Pertuss(Acell),Tet Vac 0.5 Ml Vial) 0.5 ml IMi .ONCE ONE Stop: 10/27/24 17:33 Piperacillin Sod/Tazobactam (Sod 3.375 gm/ Sodium Chloride) 50 mls @ 100 mls/hr IV X1 ONE Stop: 10/27/24 16:38 Last Infusion: 10/27/24 17:24 Dose: Infused Assessment & Plan Plan Patient is a 39-year-old male with a past medical history of diabetes mellitus type 2 on insulin and cigarette use who was admitted on 10/27/2024 for acute osteomyelitits of the right foot. #Osteomyelitis #Cellulits, Soft Tissue Infection #Diabetic Foot Secondary to trauma and complicated by non-adherance to medication and poor glycemic control. Elevated A1c during previous hospital visit Diagnostics: WBC (10/27/2024): 10.2 C-Reactive Prot 2.1 Foot X-ray (10/27/2024): Fracture at the base of the proximal phalanx fourth digit Prominent osteomyelitis proximal middle and distal phalanges fourth digit Also osteomyelitis ungual tuft tip 6 distal phalanges third and second digits Plan: -Ceftriazone 2 mg IV QDay (10/28/2024---) at 1 AM Day 1 -Vancomycin Pharmacy to dose (08/27/2024--) Day 1 -Zosyn 3.375 gm IV X 1 (10/27/2024) -Blood Culture -CMP/CBC -Wound Culture & Gram Statin during surgery -NPO aftermidnight for possible surgery -Consult General Surgery,Dr. Grimaldo, appreciate recommendations. #Diabetes Mellitus Type 2, non-insulin dependent #Hyperglycemic Etiology: Diagnosed with diabetes melllitus type 2 in 2022, currenlty Insulin dependent 10 units Lantus HS with Metformin. Diagnosis: A1c (09/30/2024): 9.7 Estimated Avg Glucose: 232 Plan: -Lantus 10 units HS -Sliding Scale Q6HR -A1c -Lipid Panel -Diabetic Education -Dietitian Referral -Consider C-peptide (less likely Type I) #Current Smoker 2pack year history (10 years of smoking cigarettes about 1 pack per week) Plan -Nicotine Patch [facility]. Health Maintenance: Disp: Pt is currently admitted to floors for further management of osteomyelitis, awaiting surgery consult FEN: carb consistent low-->NPO after midnight DVT: on subQ heparin Code: Full code - The patient's plan was discussed with attending Dr Cooper and senior residents Dr. Shereen Graves MD PGY1 Internal Medicine Attending Provider Attestation/Addendum I have discussed and was present for the essential components of the history, physical examination, diagnosis, and treatment plan with the resident. I agree with the patient's care as documented by the resident and amended herein by me. Timoteo Cooper DO. Although this document has been carefully reviewed, there may still be some phonetic and other typographical errors. These errors are purely grammatical due to imperfections in the software program and should not be construed in any way to compromise the substance of the patient's medical care during this visit.
[2024-10-27 18:24] VITALS: BP 159/112; PULSE 82; RESP 18; TEMP 37.1; O2SAT 99
[2024-10-27] MEDS: HEPARIN SOD INJ 5000 UNIT/ML VIAL SC (18:48)
[2024-10-27] MEDS: Vancomycin Inj 1,000 MG, Vancomycin Inj 750 MG in SODIUM CHLORIDE 0.9% 500 ML 500 ML 175 MG IV (18:48)
[2024-10-27] MEDS: INSULIN LISPRO (AdmeLOG) 1 UNIT/0.01 ML UNIT SC (18:49)
[2024-10-27] MEDS: DIPHTH,PERTUSS(ACELL),TET VAC 0.5 ML VIAL IMi (18:55)
[2024-10-27 19:48] VITALS: BP 159/91; PULSE 86; RESP 18; TEMP 37.1; O2SAT 99
--- NOTE | 2024-10-27 20:45 | PC.NURSE ---
Report given to CHELSIE Espinal med-surg.
[2024-10-27 21:20] VITALS: BMI 28.6
[2024-10-27 22:00] VITALS: BP 178/111; PULSE 88; RESP 18; TEMP 36; O2SAT 95
[2024-10-27] MEDS: cefTRIAXone 2 GM in SODIUM CHLORIDE 0.9% (P) 50 ML IV (23:59)
[2024-10-28] VITALS (10 sets, daily range): BP systolic 111–166; BP diastolic 80–113; PULSE 74–91; RESP 18–94; TEMP 36.2–36.7; O2SAT 95–99; BMI 28.5
[2024-10-28] MEDS: INSULIN GLARGINE (Lantus) 5 UNIT/0.05 ML (PER 5 UNITS) 10 UNIT SC (00:04)
[2024-10-28] MEDS: INSULIN LISPRO (AdmeLOG) 1 UNIT/0.01 ML UNIT SC ×3 (00:05→11:57)
--- NOTE | 2024-10-28 00:17 | PC.NURSE ---
Dr. Zuluaga notified of elevated BP 166/109. He stated it is fine for now and that he would look into it. This RN will continue to monitor patient.
[2024-10-28] MEDS: hydrALAZINE INJ 20 MG/ML VIAL 10 MG IV (00:35)
[2024-10-28] MEDS: HEPARIN SOD INJ 5000 UNIT/ML VIAL SC ×2 (05:56→18:36)
[2024-10-28 06:11] LABS: Basophils % (Auto) 0 % (0-2.5); Eosinophils # (Auto) 0.1 Thou/mm3 (0.0-0.5); Eosinophils % (Auto) 1 % (0-10); Hematocrit 37.9 % (41.0-53.0); Immature Granulocytes % (Auto) 0 % (0-0); Immature Granulocytes Auto 0.04 Thou/mm3 (0.00-0.00); Lymphocytes % (Auto) 22 % (10-50); Mean Corpuscular HGB Conc 34.3 g/dl (31.0-37.0); Mean Corpuscular Hemoglobin 27.7 pg (25.0-35.0); Mean Corpuscular Volume 81 fL (80-100); Monocytes # (Auto) 0.6 Thou/mm3 (0.0-0.8); Monocytes % (Auto) 7 % (0-12); Neutrophils # (Auto) 6.4 Thou/mm3 (1.8-7.7); Neutrophils % (Auto) 70 % (37-80); Nucleated Red Blood Cell % 0 /100 WBC (0); Platelet Count 386 Thou/mm3 (140-440); White Blood Count 9.3 Thou/mm3 (3.8-10.6)
[2024-10-28 06:34] LABS: Glucose Estimated Average 232 mg/dL (80-131); Hemoglobin A1C 9.7 % Hgb (4.8-6.0)
[2024-10-28 06:52] LABS: Alanine Aminotransferase 16 U/L (10-49); Albumin, Serum 4.1 gm/dL (3.5-5.0); Albumin/Globulin Ratio 1.2 (1.2-2.2); Alkaline Phosphatase 124 U/L (46-116); Anion Gap 8 (7-16); Aspartate Amino Transferase < 10 U/L (0-34); BUN/Creatinine Ratio 15 Ratio (12-20); Bilirubin,Total 0.5 mg/dL (0.3-1.2); Blood Urea Nitrogen 12 mg/dL (9-23); Calcium 9.4 mg/dL (8.3-10.6); Calcium (Corrected) 9.4 mg/dL (8.5-10.1); Carbon Dioxide 27.4 mMol/L (20.0-31.0); Chloride 102 mMol/L (98-107); Cholesterol 169 mg/dL (132-200); Creatinine (Component) 0.8 mg/dL (0.6-1.3); Estimated Creatinine Clearance 137.5 mL/min (>60); Globulin 3.3 gm/dL (2.3-3.5); Glucose 118 mg/dL (74-106); HDL Cholesterol 28 mg/dL (40-60); LDL Cholesterol,Calculated 120 mg/dL (0-130); Osmolality,Calculated 274 (275-295); Sodium 137 mMol/L (136-145); Thyroid Stimulating Hormone 3.34 uIU/mL (0.55-4.78); Total Protein 7.4 gm/dL (5.7-8.2); Triglycerides 106 mg/dL (30-150); eGFR > 60 See Note
--- NOTE | 2024-10-28 07:43 | PD.SURCONS ---
HPI Consult details History of present illness: 39M with HTn, DMII presenting with R foot pain. Pt reports a month ago he hurt his foot and for the past week he has noted a worsening appearance of the toes. He saw his PCP who prescribed Augmentin but as patient did not see any improvement he presented to ER yesterday. X-ray shows osteomyelitis of the right fourth digit, as well as of the distal phalanges of the second and third digits. Patient has normal WBC, A1c 9.7 PMH: HTN, DMII PSHx: Rotator cuff repair Meds: Metformin, lantus Allergies: NKDA Social hx: reports smoking cigarettes 1 pack per week for 10+ years Review of Systems Review of Systems ROS Unobtainable: All systems reviewed & no additional complaints except as documented Meds Home Medications and Allergies Home Medications ?Medication ?Instructions ?Recorded ?Confirmed ?Type metformin 1,000 mg tablet 1,000 mg PO QDAY 10/28/24 10/28/24 History Allergies Allergy/AdvReac Type Severity Reaction Status Date / Time No Known Allergies Allergy Verified 10/27/24 12:10 Exam Vital Signs Temp Pulse Resp BP Pulse Ox O2 Del Method 97.3 F 85 18 111/80 95 Room Air 10/28/24 04:00 10/28/24 04:00 10/28/24 04:00 10/28/24 04:00 10/28/24 04:00 10/28/24 04:00 Constitutional Constitutional: no acute distress Routine Respiratory Exam Respiratory: Present no resp distress Routine Extremities Exam Comments: right foot warm, DP 2+, eschar at the distal tip of right 2-4th toes with erythema of the proximal fourth toe, no fluctuance Results Results: Laboratory Laboratory results: results reviewed Results: Imaging Imaging narrative: Foot xray reviewed Assessment & Plan Plan 39M with HTN, DMII presenting with osteomyelitis of right 2-4th. toes, most extensive of the 4th toe. On exam there is eschar but minimal erythema, and as pt is overall well with normal WBC it is possible the toes may be salvaged. MRI foot Appreciate wound care recs DM diet Will hiram angelo
--- NOTE | 2024-10-28 08:48 | XR_ITS ---
Examination: MRI right foot, without contrast Date and time of exam: October 28, 2024 1901 hrs. Indications: Injury to foot one month ago, redness swelling and pain involving the fourth and fifth digits which are now black, diabetes history Technique: Multiple axial sagittal and coronal images of the right foot have been obtained with the Siemens high-resolution 1.5 Genesis MRI scanner. Images obtained include T2-weighted fat-suppressed sagittal sections, TR 3500, TE 46, T2 weighted coronal fat suppressed images, TR 3050, TE 84, T2-weighted transverse fat suppressed images, TR 3260, TE 63, proton density transverse images, TR 4720 TE 46, and T1 weighted coronal images, TR 560, TE 13. Findings: Cortical bone destruction involving the proximal middle and distal phalanges fourth digit with fracture at the base of the proximal phalanx fourth digit Cortical bone destruction involving the ungual tuft tips distal phalanges second and third digits Very prominent edema dorsum foot with fluid-filled abscesses irregular margins both dorsal to the third and fourth digits and plantar to the fourth digit, the abscess collections measuring at least 3 cm in proximal distal measurement and cephalocaudad dimension at least 4 cm Impression: Osteomyelitis proximal middle and distal phalanges fourth digit Osteomyelitis ungual tuft tips distal phalanges second and third digits Fluid-filled soft tissue abscess both dorsal to the third and fourth digits and plantar to the fourth digit
--- NOTE | 2024-10-28 08:49 | XR_ITS ---
Examination: Arterial duplex lower extremity study, unilateral right leg Date and time of exam: October 28, 2024 1042 hours INDICATIONS: Diabetes diagnoses 7 years ago, nonhealing right toe wounds beginning one month ago Findings: Duplex sonographic imaging of the lower extremity arteries using B-mode/Arana scale imaging and Doppler spectral analysis and color flow. Ankle brachial indices have been recorded. Right common femoral artery demonstrates triphasic flow. Right superficial femoral artery demonstrates triphasic flow. Right popliteal artery demonstrates triphasic flow. Right posterior tibial artery demonstrated triphasic flow. Right ankle/brachial index is 1.2. Impression: No significant obstructive arterial disease, however, consider CTA abdominal aorta iliofemoral runoff post intravenous contrast to best assess for trifurcation vessel arterial obstructive disease below the knees
--- NOTE | 2024-10-28 10:00 | PC.SS ---
Patient Zach Clark is a 39 Year old male admitted for Osteomyelitis. SS met with patient at bedside to complete initial assessment. Patient reports he lives at home with his sister, Judith Clark who he also reports is surrogate decision maker [phone]. Patient reports that prior to admission he did not utilize any source of DME. Patient is able to complete all ADL's independently. Patient reports his pharmacy of choice is [facility]. At time of discharge patient will return home. Next of Kin: Sister, Judith Clark Discharge Plan: Home
[2024-10-28] MEDS: VANCOMYCIN/NS 1 GM IVPB 200 ML IV ×2 (10:15→21:52)
--- NOTE | 2024-10-28 10:30 | PC.NURSE ---
Patient to US via wheelchair.
--- NOTE | 2024-10-28 11:15 | PC.NURSE ---
Patient returned to unit from US via wheelchair. Patient transferred from wheelchair to bed with minimum assistance. Patient made comfortable in bed, call light and personal belongings placed within reach.
--- NOTE | 2024-10-28 14:02 | ESPR_ITS ---
<Statement entered by Dejon Regan MD - 10/28/24 15:12> Patient was seen and examined at the bedside. Patient is admitted for osteomyelitis of right toe and surgery recommended to follow-up with MRI lower extremity without contrast and arterial duplex. She will follow-up on imaging results and likely evaluate further. Will continue with IV ceftriaxone 2 g once a day and vancomycin for now. Blood cultures and MRSA screen pending. Wound care continue daily. All labs and orders were reviewed. I saw and examined the patient, and I agree with current management stated by Dr Star MD,PGY1. Plan of care was discussed with the attending physician and resident physician. Disclaimer: Despite multiple revisions, due to the dictation software being used, the document bellow may not be free of grammatical errors including phonetic/typographic errors. However, this does not deter from our commitment to providing health care in the patient's best interest in mind. Dr. Shereen MD, PGY 2 Documentation for date of: 10/28/24 Subjective Subjective Interval history: Patient is a 39-year-old male with a past medical history of diabetes mellitus type 2 on insulin, cigarette use, and stated past medical history of HTN resolved who was admitted on 10/27/2024. overnight event reported was elevated systolic blood pressure in 160s, hydralazine X 1 given. On admission, patient stated hypertension had resolved and was not taking any medication. Patient denied any chest pain or SOB. Denied any lower extremity pain. Understands the severity of diabetic non-healing wound. Exam Vital Signs Temp Pulse Resp BP Pulse Ox O2 Del Method 97.2 F 80 18 127/87 H 97 Room Air 10/28/24 12:00 10/28/24 12:00 10/28/24 12:00 10/28/24 12:00 10/28/24 12:00 10/28/24 12:00 Narrative Exam General Appearance: Alert & Oriented X3, well-nourished male who is lying in bed in no acute distress; right lower digits (3 and 4 digit) continue to appear erythematous with discharge and possible necrosis. HEENT: Skull symmetrical and atraumatic. Conjunctivae pink and moist. Pupils equal, round, reactive to light and accommodation (PERRL). External ear without lesion or discharge. Straight, nares patient, mucosa pink, no discharge. No thyroid nodule appreciated. Cardio: Normal Rate and Rhythm with S1 and S2 heart sounds. No murmurs or extra heart sounds auscultated. No bruits on carotid auscultation. No peripheral edema or cyanosis. Lungs: Symmetric with good expansion. Chest and back non-tender. Breath sounds vesicular without crackles, wheezing or rhonchi Abdomen: Non-tender, Non-distended, Normal Reactive Bowel Sounds Neuro: Alert, cooperative, oriented to person, place, and time. Speech clear. CN grossly intact. Upper motor strength 5/5 and Lower motor strength 5/5. Sensation intact. Objective Labs 10/28/24 05:00 10/28/24 05:45 Labs: Laboratory Results - last 24 hr 10/28/24 10/28/24 05:00 05:45 WBC 9.3 RBC 4.70 Hgb 13.0 L Hct 37.9 L MCV 81 MCH 27.7 MCHC 34.3 RDW Std Deviation 34.0 L Plt Count 386 D Neut % (Auto) 70 Lymph % (Auto) 22 [place] % (Auto) 7 Eos % (Auto) 1 Baso % (Auto) 0 Neut # (Auto) 6.4 Lymph # (Auto) 2.0 [place] # (Auto) 0.6 Eos # (Auto) 0.1 Baso # (Auto) 0.0 Immature Gran # (Auto) 0.04 H Absolute Nucleated RBC 0.00 Immature Gran % 0 Nucleated RBC % 0 Sodium 137 Potassium 4.0 D Chloride 102 Carbon Dioxide 27.4 Anion Gap 8 BUN 12 Creatinine 0.8 Estim Creat Clear Calc 137.5 eGFR > 60 BUN/Creatinine Ratio 15 [address]ucose [address] Glu mg/dL 232 H Hemoglobin A1c 9.7 H Calculated Osmolality 274 L Calcium 9.4 Corrected Calcium 9.4 Total Bilirubin 0.5 AST < 10 ALT 16 Alkaline Phosphatase 124 H D Total Protein 7.4 Albumin 4.1 D Globulin 3.3 Albumin/Globulin Ratio 1.2 Triglycerides 106 Cholesterol 169 LDL Cholesterol, Calc 120 HDL Cholesterol 28 L Cholesterol/HDL Ratio 6.0 TSH 3.34 Quality Measures Quality Measures none Assessment & Plan Assessment Current Active Medications: Generic Name Dose Route Start Last Admin Trade Name Freq PRN Reason Stop Dose Admin Acetaminophen 650 mg 10/27/24 17:19 Acetaminophen 325 Mg Tablet PO 11/26/24 17:18 Q6H PRN Mild Pain 1-3 or Fever >100.4 Hydrocodone Bitart/Acetaminophen 1 tab 10/27/24 17:19 Hydrocodone/Apap 5/325 Tablet PO 11/01/24 17:18 Q4HR PRN PAIN SCALE 4-6 (Moderate Dextrose 25 ml 10/27/24 17:23 Dextrose 50%-Water Inj 50 Ml Syringe IV 11/26/24 17:22 Q15MIN PRN BG 50-70 responsive npo pt Dextrose 50 ml 10/27/24 17:23 Dextrose 50%-Water Inj 50 Ml Syringe IV 11/26/24 17:22 Q15MIN PRN BG <50 OR BG <70 & pt unresponsive Glucagon 1 mg 10/27/24 17:23 Glucagon Inj 1 Mg Vial IM Q15MIN PRN BG <70, and no IV access Heparin Sodium (Porcine) 5,000 unit 10/27/24 18:15 10/28/24 05:56 Heparin Sod Inj 5000 Unit/Ml Vial SC 11/10/24 18:14 5,000 unit Q12H RAMILA Administration Hydralazine HCl 10 mg 10/28/24 00:21 10/28/24 00:35 Hydralazine Inj 20 Mg/Ml Vial IV 11/27/24 00:20 10 mg Q6HR PRN Administration systolic >170 Ceftriaxone Sodium 2 gm/ 50 mls @ 100 mls/hr 10/28/24 01:00 10/27/24 23:59 Sodium Chloride IV 11/04/24 00:59 100 mls/hr QDAY@2100 RAMILA Administration Vancomycin/Sodium Chloride 200 mls @ 120 mls/hr 10/28/24 10:00 10/28/24 10:15 Vancomycin/Ns 1 Gm Ivpb IV 11/04/24 09:59 120 mls/hr Q12H RAMILA Administration Insulin Glargine 12 unit 10/28/24 21:00 Insulin Glargine (Lantus) 5 Unit/0.05 Ml (Per 5 Units) SC 11/27/24 20:59 HS RAMILA Insulin Human Lispro 0 unit 10/28/24 11:30 10/28/24 11:57 Insulin Lispro (Admelog) 1 Unit/0.01 Ml Unit SC 11/27/24 11:29 2 unit AC RAMILA Administration Protocol Morphine Sulfate 1 mg 10/27/24 18:02 Morphine Sulf Inj 10 Mg/Ml Vial IVP 11/01/24 18:01 Q4HR PRN PAIN SCALE 7-10(Mod-Sev Nicotine 7 mg 10/27/24 17:45 10/28/24 08:23 Nicotine Patch 7 Mg/24 Hr Patch.Td24 TOP 11/26/24 17:44 Not Given [facility] Pharmacy Consult 1 each 10/27/24 17:30 10/28/24 08:22 Vancomycin Pharmacy To Dose 1 Each Each IV 11/26/24 17:29 Not Given [facility] Plan Patient is a 39-year-old male with a past medical history of diabetes mellitus type 2 on insulin and cigarette use who was admitted on 10/27/2024 for acute osteomyelitits of the right foot. #Osteomyelitis #Cellulits, Soft Tissue Infection #Diabetic Foot Secondary to trauma and complicated by non-adherance to medication and poor glycemic control. Elevated A1c during previous hospital visit 10/28/2024-Ankle Brachial Index within upper normal limit at 1.2, which is less than 1.3 and flow illustrated triphasic, unlikely PID. Given diabetes history, this is likely decreasing healing ability. Diagnostics: WBC (10/27/2024): 10.2--> (10/28/2024) 9.3 C-Reactive Prot 2.1 Foot X-ray (10/27/2024): Fracture at the base of the proximal phalanx fourth digit. Prominent osteomyelitis proximal middle and distal phalanges fourth digit Also osteomyelitis ungual tuft tip 6 distal phalanges third and second digits ankle/brachial index:Right ankle/brachial index is 1.2., Triphasic flow in tested artieries. NO Significant obstructive arterial disease. Consider CTA as outpatinet Blood Culture(10/27/2024): negative 24 hours Micro Wound & Tissue (10/27/2024): Collected prematurley, added instructions for OR procedure.-->mixed julius noted, pending official read. Plan: -MRI pending -Ceftriazone 2 mg IV QDay (10/28/2024---) at 1 AM Day 2 -Vancomycin Pharmacy to dose (08/27/2024--) Day 2 -Zosyn 3.375 gm IV X 1 (10/27/2024) -Tetnus shot 10/28/2024 -CMP/CBC -Consider CTA of lower extremities as outpatient -Wound Culture & Gram Statin during surgery -Consult General Surgery,Dr. Grimaldo, appreciate recommendations. #Diabetes Mellitus Type 2, non-insulin dependent #Hyperglycemic Etiology: Diagnosed with diabetes melllitus type 2 in 2022, currenlty Insulin dependent 10 units Lantus HS with Metformin. -ASCVD: High-intensity statin recommended because of know diabetes & 10 year risk factor of [place] is 16.8% in next 10 years. Diagnosis: Lipid Panel (10/28/2024): Triglycerides 106, Cholesterol 169, LDL 120, HDL 28 L A1c (09/30/2024): 9.7-->A1c (10/28/2024) 9.7 Estimated Avg Glucose: 232 Plan: -Lantus 10 units HS -Sliding Scale Q6HR -Discuss with patient about adding Atorvastatin to medication list, tomorrow AM. -Diabetic Education -Dietitian Referral -Consider C-peptide (less likely Type I) #Current Smoker 2pack year history (10 years of smoking cigarettes about 1 pack per week) Plan -Nicotine Patch [facility]. Health Maintenance: Disp: Pt is currently admitted to floors for further management of osteomyelitis, awaiting MRI lower foot. FEN: low carb consisten low. DVT: on subQ heparin Code: Full code - The patient's plan was discussed with attending Dr. Cooper and senior residents Dr. Shereen Graves MD PGY1 Internal Medicine Attending Provider Attestation/Addendum I have discussed and was present for the essential components of the history, physical examination, diagnosis, and treatment plan with the resident. I agree with the patient's care as documented by the resident and amended herein by me. Timoteo Cooper DO. Patient seen and evaluated this AM. In Short, patient is a 39-year-old male with a significant past medical history of uncontrolled type 2 diabetes and tobacco use who was admitted on 10/27 for osteomyelitis of the right foot. Interval Hx: 10/28: No acute events overnight, vital signs stable, patient afebrile, blood glucose well-controlled overnight. Labs largely unremarkable, CRP elevated 2.1. MRI pending. Bilateral arterial duplex ultrasound performed, no significant obstructive arterial disease demonstrated. SIGNIFICANT PROBLEM LIST: #Osteomyelitis, right foot #Cellulitis of the right foot #Type 2 diabetes, presently uncontrolled, A1c 9.7. #Tobacco use disorder PLAN: MRI of the patient's right foot pending, general surgery consulted, will continue broad-spectrum antibiotics ceftriaxone and vancomycin for now. MEDICATIONS: Ceftriaxone start 10/27 Vancomycin start 10/27 Heparin PPx 5000 units every 12 hours Lantus 12 units nightly, nicotine patch Vancomycin, pharmacy to dose Although this document has been carefully reviewed, there may still be some phonetic and other typographical errors. These errors are purely grammatical due to imperfections in the software program and should not be construed in any way to compromise the substance of the patient's medical care during this visit.
[2024-10-28] MEDS: INSULIN GLARGINE (Lantus) 5 UNIT/0.05 ML (PER 5 UNITS) 12 UNIT SC (20:31)
[2024-10-28] MEDS: HYDROcodone/APAP 5/325 TABLET 1 TAB PO (20:34)
[2024-10-28] MEDS: cefTRIAXone 2 GM in SODIUM CHLORIDE 0.9% (P) 50 ML IV (20:39)
[2024-10-29] VITALS (9 sets, daily range): BP systolic 117–171; BP diastolic 75–107; PULSE 68–115; RESP 15–96; TEMP 36–37.1; O2SAT 94–98
[2024-10-29] MEDS: HEPARIN SOD INJ 5000 UNIT/ML VIAL SC ×2 (05:17→18:08)
[2024-10-29 06:05] LABS: Basophils % (Auto) 0 % (0-2.5); Eosinophils % (Auto) 0 % (0-10); Hemoglobin 12.8 g/dL (13.5-16.0); Immature Granulocytes % (Auto) 1 % (0-0); Immature Granulocytes Auto 0.07 Thou/mm3 (0.00-0.00); Lymphocytes # (Auto) 1.8 Thou/mm3 (1.0-4.8); Lymphocytes % (Auto) 13 % (10-50); Mean Corpuscular HGB Conc 34.6 g/dl (31.0-37.0); Mean Corpuscular Hemoglobin 28.1 pg (25.0-35.0); Mean Corpuscular Volume 81 fL (80-100); Monocytes # (Auto) 1.1 Thou/mm3 (0.0-0.8); Monocytes % (Auto) 8 % (0-12); Neutrophils % (Auto) 78 % (37-80); Nucleated Red Blood Cell % 0 /100 WBC (0); Platelet Count 372 Thou/mm3 (140-440); RDW Standard Deviation 34.4 fL (35.1-43.9); Red Blood Count 4.56 Miln/mm3 (4.50-5.90); White Blood Count 14.1 Thou/mm3 (3.8-10.6)
[2024-10-29 06:38] LABS: Alanine Aminotransferase 14 U/L (10-49); Albumin, Serum 4.3 gm/dL (3.5-5.0); Albumin/Globulin Ratio 1.3 (1.2-2.2); Alkaline Phosphatase 135 U/L (46-116); Anion Gap 8 (7-16); BUN/Creatinine Ratio 19 Ratio (12-20); Bilirubin,Total 0.7 mg/dL (0.3-1.2); Blood Urea Nitrogen 15 mg/dL (9-23); Calcium 9.3 mg/dL (8.3-10.6); Calcium (Corrected) 9.3 mg/dL (8.5-10.1); Carbon Dioxide 25.5 mMol/L (20.0-31.0); Chloride 97 mMol/L (98-107); Creatinine (Component) 0.8 mg/dL (0.6-1.3); Estimated Creatinine Clearance 137.5 mL/min (>60); Globulin 3.4 gm/dL (2.3-3.5); Glucose 203 mg/dL (74-106); Osmolality,Calculated 267 (275-295); Sodium 130 mMol/L (136-145); Total Protein 7.7 gm/dL (5.7-8.2); eGFR > 60 See Note
[2024-10-29 06:43] LABS: Aspartate Amino Transferase < 8 U/L (0-34)
[2024-10-29] MEDS: INSULIN LISPRO (AdmeLOG) 1 UNIT/0.01 ML UNIT SC ×3 (07:27→18:07)
[2024-10-29 09:35] LABS: Vancomycin,Trough 5.9 mcg/mL (5.0-10.0)
[2024-10-29] MEDS: VANCOMYCIN/WATER 1250 MG IVPB 250 ML 120 MG IV (11:27)
[2024-10-29] MEDS: INSULIN GLARGINE (Lantus) 5 UNIT/0.05 ML (PER 5 UNITS) 8 UNIT SC ×2 (11:32→21:26)
[2024-10-29] MEDS: HYDROcodone/APAP 5/325 TABLET 1 TAB PO ×3 (11:56→20:32)
--- NOTE | 2024-10-29 13:18 | ESPR_ITS ---
<Statement entered by Dejon Regan MD - 10/29/24 15:13> Patient was seen and examined at the bedside. Patient reported to have mild right foot pain. General surgeon, Dr. Grimaldo wants to proceed with incision and drainage. We consulted ID specialist for possible osteomyelitis treatment for over 6 weeks. Patient will need PICC line for continuation of antibiotics. Blood culture showing no growth. Lantus was adjusted for elevated blood sugars. All labs and orders were reviewed. I saw and examined the patient, and I agree with current management stated by Dr Star MD,PGY1. Plan of care was discussed with the attending physician and resident physician. Disclaimer: Despite multiple revisions, due to the dictation software being used, the document bellow may not be free of grammatical errors including phonetic/typographic errors. However, this does not deter from our commitment to providing health care in the patient's best interest in mind. Dr. Shereen MD, PGY 2 Documentation for date of: 10/29/24 Subjective Subjective Interval history: Patient is a 39-year-old male with a past medical history of diabetes mellitus type 2 on insulin, cigarette use, and stated past medical history of HTN resolved who was admitted on 10/27/2024 for osteomyelitis of the right 2-4 digits. No overnight events reported for patient. Patient examined at bedside. Denied any chest pain or shortness of breath. Patient denied pyrexia or chils overnight. Stated denied any right foot pain, but stated he was having generalized body aches. Advised patient to get out of bed and sit up as he is currently does not have any pain on his right left from the osteomyelitis. Exam Vital Signs Temp Pulse Resp BP Pulse Ox O2 Del Method 97.9 F 98 16 129/78 98 Room Air 10/29/24 12:10/29/24 12:00 10/29/24 12:00 10/29/24 12:00 10/29/24 12:10/29/24 12:00 Narrative Exam General Appearance: Alert & Oriented X3, well-nourished male who is lying in bed in no acute distress but mild discomfort from laying in bed. NO progression of erythema noted from infection around right foot. HEENT: Skull symmetrical and atraumatic. Conjunctivae pin and moist. Pupils equal, round, reactive to light and accommodation (PERRL). External ear without lesion or discharge. Straight, nares patient, mucosa pink, no discharge. Cardio: Normal Rate and Rhythm with S1 and S2 heart sounds. No murmurs or extra heart sounds auscultated. No bruits on carotid auscultation. No peripheral edema or cyanosis. Lungs: Symmetric with good expansion. Chest and back non-tender. Breath sounds vesicular without crackles, wheezing or rhonchi Abdomen: Non-tender, Non-distended, Normal Reactive Bowel Sounds Neuro: Alert, cooperative, oriented to person, place, and time. Speech clear. CN grossly intact. Upper motor strength 5/5 and Lower motor strength 5/5. Sensation intact. Objective Labs 10/30/24 12:45 10/30/24 12:45 Labs: Laboratory Results - last 24 hr 10/29/24 10/29/24 04:34 08:47 WBC 14.1 H D RBC 4.56 Hgb 12.8 L Hct 37.0 L MCV 81 MCH 28.1 MCHC 34.6 RDW Std Deviation 34.4 L Plt Count 372 Neut % (Auto) 78 Lymph % (Auto) 13 [place] % (Auto) 8 Eos % (Auto) 0 Baso % (Auto) 0 Neut # (Auto) 11.0 H Lymph # (Auto) 1.8 [place] # (Auto) 1.1 H Eos # (Auto) 0.0 Baso # (Auto) 0.0 Immature Gran # (Auto) 0.07 H Absolute Nucleated RBC 0.00 Immature Gran % 1 H Nucleated RBC % 0 Sodium 130 L Potassium 4.0 Chloride 97 L Carbon Dioxide 25.5 Anion Gap 8 BUN 15 Creatinine 0.8 Estim Creat Clear Calc 137.5 eGFR > 60 BUN/Creatinine Ratio 19 Glucose 203 H D Calculated Osmolality 267 L Calcium 9.3 Corrected Calcium 9.3 Total Bilirubin 0.7 AST < 8 ALT 14 Alkaline Phosphatase 135 H Total Protein 7.7 Albumin 4.3 Globulin 3.4 Albumin/Globulin Ratio 1.3 Vancomycin Trough 5.9 Quality Measures Quality Measures none Assessment & Plan Assessment Current Active Medications: Generic Name Dose Route Start Last Admin Trade Name Freq PRN Reason Stop Dose Admin Acetaminophen 650 mg 10/27/24 17:19 Acetaminophen 325 Mg Tablet PO 11/26/24 17:18 Q6H PRN Mild Pain 1-3 or Fever >100.4 Hydrocodone Bitart/Acetaminophen 1 tab 10/27/24 17:19 10/29/24 11:56 Hydrocodone/Apap 5/325 Tablet PO 11/01/24 17:18 1 tab Q4HR PRN Administration PAIN SCALE 4-6 (Moderate Atorvastatin Calcium 40 mg 10/29/24 21:00 Atorvastatin Calcium 20 Mg Tablet PO 11/28/24 20:59 HS RAMILA Dextrose 25 ml 10/27/24 17:23 Dextrose 50%-Water Inj 50 Ml Syringe IV 11/26/24 17:22 Q15MIN PRN BG 50-70 responsive npo pt Dextrose 50 ml 10/27/24 17:23 Dextrose 50%-Water Inj 50 Ml Syringe IV 11/26/24 17:22 Q15MIN PRN BG <50 OR BG <70 & pt unresponsive Glucagon 1 mg 10/27/24 17:23 Glucagon Inj 1 Mg Vial IM Q15MIN PRN BG <70, and no IV access Heparin Sodium (Porcine) 5,000 unit 10/27/24 18:15 10/29/24 05:17 Heparin Sod Inj 5000 Unit/Ml Vial SC 11/10/24 18:14 5,000 unit Q12H RAMILA Administration Hydralazine HCl 10 mg 10/28/24 00:21 10/28/24 00:35 Hydralazine Inj 20 Mg/Ml Vial IV 11/27/24 00:20 10 mg Q6HR PRN Administration systolic >170 Ceftriaxone Sodium 2 gm/ 50 mls @ 100 mls/hr 10/28/24 01:00 10/28/24 20:39 Sodium Chloride IV 11/04/24 00:59 100 mls/hr QDAY@2100 RAMILA Administration Vancomycin HCl 250 mls @ 120 mls/hr 10/29/24 10:00 10/29/24 11:27 Vancomycin/Water 1250 Mg Ivpb IV 11/05/24 09:59 120 mls/hr BID@1000,2200 RAMILA Administration Insulin Glargine 8 unit 10/29/24 21:00 Insulin Glargine (Lantus) 5 Unit/0.05 Ml (Per 5 Units) SC 11/28/24 20:59 HS RAMILA Insulin Human Lispro 0 unit 10/28/24 11:30 10/29/24 11:37 Insulin Lispro (Admelog) 1 Unit/0.01 Ml Unit SC 11/27/24 11:29 4 unit AC RAMILA Administration Protocol Morphine Sulfate 1 mg 10/27/24 18:02 Morphine Sulf Inj 10 Mg/Ml Vial IVP 11/01/24 18:01 Q4HR PRN PAIN SCALE 7-10(Mod-Sev Nicotine 7 mg 10/27/24 17:45 10/29/24 08:29 Nicotine Patch 7 Mg/24 Hr Patch.Td24 TOP 11/26/24 17:44 Not Given [facility] Pharmacy Consult 1 each 10/27/24 17:30 10/29/24 08:29 Vancomycin Pharmacy To Dose 1 Each Each IV 11/26/24 17:29 Not Given [facility] Plan Patient is a 39-year-old male with a past medical history of diabetes mellitus type 2 on insulin and cigarette use who was admitted on 10/27/2024 for acute osteomyelitits of the right foot. #R. lower extremity digits (2-4 digits) s/p I&D 10/29/2024 #Osteomyelitis #Cellulits, Soft Tissue Infection #Diabetic Foot Secondary to trauma and complicated by non-adherance to medication and poor glycemic control. Elevated A1c during previous hospital visit 10/28/2024-Ankle Brachial Index within upper normal limit at 1.2, which is less than 1.3 and flow illustrated triphasic, unlikely PID. Given diabetes history, this is likely decreasing healing ability. (10/29/2024): I& D on (10/29/2024) of necrotic tissue of the 2th-4th toes from cellulitis-->progressing to osteomyelitis; Dr. Hill -ID recommendations-IV Antibiotics rocephin 2 g per day IV & Doxycyline 100 mg BID PO fro six week from October 27-->December 08, 2024 Diagnostics: WBC (10/27/2024): 10.2--> (10/28/2024) 14.3 Foot MRI (10/29/2024): Osteomyelitis proximal middle and distal phalanges fourth digit; Osteomyelitis ungual tuft tips distal phalanges second and third digits; Fluid-filled soft tissue abscess both dorsal to the third and fourth digits and plantar to the fourth digit Foot X-ray (10/27/2024): Fracture at the base of the proximal phalanx fourth digit. Prominent osteomyelitis proximal middle and distal phalanges fourth digit Also osteomyelitis ungual tuft tip 6 distal phalanges third and second digits ankle/brachial index:Right ankle/brachial index is 1.2., Triphasic flow in tested artieries. NO Significant obstructive arterial disease. Consider CTA as outpatinet C-Reactive Prot 2.1 (10/28/2024) Blood Culture(10/27/2024): negative 24 hours Micro Wound & Tissue (10/27/2024): Collected prematurley, added instructions for OR procedure.-->mixed julius noted, pending official read. Plan: -IR consult placed for PICC -Ceftriazone 2 mg IV QDay (10/28/2024---) at 1 AM Day 2 -Vancomycin Pharmacy to dose (08/27/2024--) Day 2 -Zosyn 3.375 gm IV X 1 (10/27/2024) -Tetnus shot 10/28/2024 -Consider CTA of lower extremities as outpatient -Wound Culture & Gram Statin during surgery -Consult General Surgery,Dr. Grimaldo, appreciate recommendations. -Consult Infectious Disease, appreciate recommendations, Dr. Hill #Diabetes Mellitus Type 2, non-insulin dependent #Hyperglycemic Etiology: Diagnosed with diabetes melllitus type 2 in 2022, currenlty Insulin dependent 10 units Lantus HS with Metformin. -ASCVD: High-intensity statin recommended because of know diabetes & 10 year risk factor of [place] is 16.8% in next 10 years. Diagnosis: Lipid Panel (10/28/2024): Triglycerides 106, Cholesterol 169, LDL 120, HDL 28 L A1c (09/30/2024): 9.7-->A1c (10/28/2024) 9.7 Estimated Avg Glucose: 232 -Fasting Glucose 203 (10/29/2024) Plan: -Lantus 10 units HS-->8 units Lantus AM and 8 Units HS for 10/29/2024 -Sliding Scale Q6HR -Atorvastatin 40 mg HS -Fasting glucose goal of 140-180 -Diabetic Education -Dietitian Referral -Consider C-peptide (less likely Type I) #Current Smoker 2pack year history (10 years of smoking cigarettes about 1 pack per week). Patient declined but order placed. Plan -Nicotine Patch [facility]. Health Maintenance: Disp: Pt is currently admitted to floors for further management of osteomyelitis, awaiting MRI lower foot. FEN: low carb consisten low. DVT: on subQ heparin Code: Full code - The patient's plan was discussed with attending Dr. Cooper and senior residents Dr. Shereen Graves MD PGY1 Internal Medicine Attending Provider Attestation/Addendum I have discussed and was present for the essential components of the history, physical examination, diagnosis, and treatment plan with the resident. I agree with the patient's care as documented by the resident and amended herein by me. Timoteo Cooper DO. Although this document has been carefully reviewed, there may still be some phonetic and other typographical errors. These errors are purely grammatical due to imperfections in the software program and should not be construed in any way to compromise the substance of the patient's medical care during this visit.
--- NOTE | 2024-10-29 14:07 | PD.IDPROG ---
Subjective Subjective Interval history: xray of foot in September neg, now pos on vanco/rocephin but likely rocephin doxy ok for outpt along with better dm control. a1c notable. Exam Vital Signs Temp Pulse Resp BP Pulse Ox O2 Del Method 97.9 F 98 16 129/78 98 Room Air 10/29/24 12:00 10/29/24 12:00 10/29/24 12:00 10/29/24 12:00 10/29/24 12:00 10/29/24 12:00 Narrative Exam rt foot wrapped. not overtly ischemic. some bleeding noted. Objective - Internal Medicine Labs 10/29/24 04:34 10/29/24 04:34 Labs: Laboratory Results - last 24 hr 10/29/24 10/29/24 04:34 08:47 WBC 14.1 H D RBC 4.56 Hgb 12.8 L Hct 37.0 L MCV 81 MCH 28.1 MCHC 34.6 RDW Std Deviation 34.4 L Plt Count 372 Neut % (Auto) 78 Lymph % (Auto) 13 [place] % (Auto) 8 Eos % (Auto) 0 Baso % (Auto) 0 Neut # (Auto) 11.0 H Lymph # (Auto) 1.8 [place] # (Auto) 1.1 H Eos # (Auto) 0.0 Baso # (Auto) 0.0 Immature Gran # (Auto) 0.07 H Absolute Nucleated RBC 0.00 Immature Gran % 1 H Nucleated RBC % 0 Sodium 130 L Potassium 4.0 Chloride 97 L Carbon Dioxide 25.5 Anion Gap 8 BUN 15 Creatinine 0.8 Estim Creat Clear Calc 137.5 eGFR > 60 BUN/Creatinine Ratio 19 Glucose 203 H D Calculated Osmolality 267 L Calcium 9.3 Corrected Calcium 9.3 Total Bilirubin 0.7 AST < 8 ALT 14 Alkaline Phosphatase 135 H Total Protein 7.7 Albumin 4.3 Globulin 3.4 Albumin/Globulin Ratio 1.3 Vancomycin Trough 5.9 Assessment & Plan A&P Narrative osteo of foot esr high, imaging abnormal dm II, a1c 9.7 , high hld. no rx noted as outpt if bc remain neg at 48h, then change vanco to doxy and plan on rx from 10/27 thru 12/08 with weekly cbc, renal panel, esr on rx and line removal at end of rx improved dm control also essential to recovery. if pt has an amputation, infection would be removed and role of abx more limited to absent. Time Spent With Patient Time: Total time spent is greater than 50% in coordination of care (as documented) at patient's floor/unit and/or counseling patient:
[2024-10-29] MEDS: MORPHINE SULF INJ 10 MG/ML VIAL 4 MG IVP (14:29)
--- NOTE | 2024-10-29 14:35 | PC.WOUND ---
Assisted Dr. Grimaldo at bedside with I&D of right foot, consent signed and premedicated. Tolerated well, small amount of bleeding stopped with pressure. Kerlix dressing applied. Call light and personal items in reach, expressed no needs at this time. Care endorsed to Boom HOLGUIN.
--- NOTE | 2024-10-29 14:55 | PD.SURPROG ---
Documentation for date of: 10/29/24 Subjective Subjective Brief History: 39M with HTn, DMII presenting with R foot pain. Pt reports a month ago he hurt his foot and for the past week he has noted a worsening appearance of the toes. He saw his PCP who prescribed Augmentin but as patient did not see any improvement he presented to ER yesterday. X-ray shows osteomyelitis of the right fourth digit, as well as of the distal phalanges of the second and third digits. Patient has normal WBC, A1c 9.7 PMH: HTN, DMII PSHx: Rotator cuff repair Meds: Metformin, lantus Allergies: NKDA Social hx: reports smoking cigarettes 1 pack per week for 10+ years Narrative: Pt reports feeling well overall but with soreness related to being in bed here. He underwent MRI yesterday again showing osteomyelitis of right 2-4th toes as well as abscess Exam Vital Signs Temp Pulse Resp BP Pulse Ox O2 Del Method 97.9 F 98 16 129/78 98 Room Air 10/29/24 12:00 10/29/24 12:00 10/29/24 12:00 10/29/24 12:00 10/29/24 12:00 10/29/24 12:00 Constitutional Constitutional: no acute distress Routine Respiratory Exam Respiratory: Present no resp distress Routine Extremities Exam Comments: right foot warm with dry eschar at the tips of 2nd and 3rd toes; 4th toe with more extensive eschar and mild erythema at base, no fluctuance Results Results: Laboratory Laboratory results: results reviewed Results: Imaging Imaging narrative: MRI reviewed Assessment & Plan Plan 39M with HTN, DMII presenting with osteomyelitis of right 2-4th toes, most extensive of the 4th toe. As there is only dry eschar iI explained to pt that we can hold off amputation for now; I will perform excisional debridement of necrotic tissue as well as possible I&D of abscess. All questions were answered and pt is agreeable to proceeding
--- NOTE | 2024-10-29 14:59 | PD.SURPROC ---
Procedures - Surgery Procedure Comment Procedure Comment: Informed consent obtained Dry eschar of right 2nd-4th toes excised with scissors down to level of subcutaneous tissue Hemostasis achieved with direct pressure Area between 3rd and 4th toes aspirated in multiple places to assess for pus; as none was identified and the area is not fluctuant on exam, I opted not to make an incision Pt tolerated procedure well Abscess I/D Site: foot Side (if applicable): right Sedation/analgesia: other (Morphine 4mg IV) Technique: needle aspiration (18g needle used to aspirate the dorsal and plantar surface between 3rd and 4th toes; no pus obtained) and other (Necrotic tissue of right 2nd-4th toes excised down to the level of subcutaneous tissue with scissors, hemostasis achieved with direct pressure) Irrigation: No Packing used?: none
--- NOTE | 2024-10-29 16:26 | ESCONSULT_ITS ---
RE: MOI DUENAS : 1985 DATE OF CONSULTATION: 10/29/2024 REFERRING PHYSICIAN: Dr. Graves. REASON FOR CONSULTATION: Diabetes and osteomyelitis of the right foot. HISTORY OF PRESENT ILLNESS: The patient is an unfortunate 39-year-old admitted for the above-mentioned complaints. He was here in September with similar complaints, but did not stay long and imaging at that time was not impressive. It gotten worse in the meantime. MRI is being planned. There is a bedside debridement about to happen. He may face amputation of some of the digits and even possibly transmetatarsal amputation or other amputations. If infection is removed surgically, then the role of antibiotics may become more absent. His medical problems include diabetes, A1c is 9.7 and hypertension. He takes no medications at home. Surgical history includes left shoulder surgery in 2017. ALLERGIES: NONE NOTED. IMMUNIZATIONS: Last tetanus was given in the ED. He does not take a flu shot regularly. He has had 1 COVID vaccine and has had pneumococcal. FAMILY HISTORY: Positive for diabetes in various relatives including the father and sisters. 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 He is a nonsmoker. there is no hx of drug use. PHYSICAL EXAMINATION: He is a pleasant gentleman. He is missing a central incisor. The rest of his teeth are in fair condition. Lungs clear. Heart is regular rhythm. Abdomen benign. Extremities unremarkable; although, his right foot has a small amount of blood strike through on the drain and dressings. The presence of bleeding is often a good sign in this setting, meaning that the circulation is grossly adequate. ASSESSMENT: 1. Osteomyelitis of the right foot. 2. Diabetes. RECOMMENDATIONS: The patient needs to improve his diabetic control. A1c was 9.7 needs to be better. He is advised about that. As far as the antibiotics go, if there is no bacteremia, treatment can be IV antibiotics, Rocephin 2 g a day and po doxycycline 100 mg twice a day p.o. If blood sugars are positive, we may have to give him some IV treatment. It may allow us to narrow the antibiotics. I will probably check him again on Venita am if he remains in house DT: 14:37:38 TT: 15:32:00 Ref: [id number] - TID: [id number] MTDD
[2024-10-29] MEDS: ATORVASTATIN CALCIUM 20 MG TABLET 40 MG PO (20:23)
[2024-10-29] MEDS: hydrALAZINE INJ 20 MG/ML VIAL 10 MG IV (20:24)
[2024-10-29] MEDS: cefTRIAXone 2 GM in SODIUM CHLORIDE 0.9% (P) 50 ML IV (20:27)
[2024-10-29] MEDS: MELATONIN 3 MG TABLET PO (22:16)
[2024-10-30] VITALS (16 sets, daily range): BP systolic 98–162; BP diastolic 72–109; PULSE 76–121; RESP 16–96; TEMP 35.9–38.1; O2SAT 94–96
[2024-10-30] MEDS: HEPARIN SOD INJ 5000 UNIT/ML VIAL SC (05:21)
[2024-10-30] MEDS: HYDROcodone/APAP 5/325 TABLET 1 TAB PO ×3 (05:25→22:45)
[2024-10-30 06:00] LABS: Basophils % (Auto) 0 % (0-2.5); Eosinophils % (Auto) 0 % (0-10); Hematocrit 34.9 % (41.0-53.0); Hemoglobin 12.5 g/dL (13.5-16.0); Immature Granulocytes % (Auto) 1 % (0-0); Immature Granulocytes Auto 0.15 Thou/mm3 (0.00-0.00); Lymphocytes # (Auto) 1.2 Thou/mm3 (1.0-4.8); Lymphocytes % (Auto) 5 % (10-50); Mean Corpuscular HGB Conc 35.8 g/dl (31.0-37.0); Mean Corpuscular Hemoglobin 28.6 pg (25.0-35.0); Mean Corpuscular Volume 80 fL (80-100); Monocytes # (Auto) 2.1 Thou/mm3 (0.0-0.8); Monocytes % (Auto) 9 % (0-12); Neutrophils # (Auto) 20.2 Thou/mm3 (1.8-7.7); Neutrophils % (Auto) 85 % (37-80); Nucleated Red Blood Cell % 0 /100 WBC (0); Platelet Count 308 Thou/mm3 (140-440); RDW Standard Deviation 34.5 fL (35.1-43.9); Red Blood Count 4.37 Miln/mm3 (4.50-5.90); White Blood Count 23.7 Thou/mm3 (3.8-10.6)
[2024-10-30 06:45] LABS: Alanine Aminotransferase 11 U/L (10-49); Albumin, Serum 4.3 gm/dL (3.5-5.0); Albumin/Globulin Ratio 1.3 (1.2-2.2); Alkaline Phosphatase 125 U/L (46-116); Anion Gap 9 (7-16); Aspartate Amino Transferase < 8 U/L (0-34); BUN/Creatinine Ratio 15 Ratio (12-20); Bilirubin,Total 1.4 mg/dL (0.3-1.2); Blood Urea Nitrogen 12 mg/dL (9-23); Calcium 9.3 mg/dL (8.3-10.6); Calcium (Corrected) 9.3 mg/dL (8.5-10.1); Carbon Dioxide 24.7 mMol/L (20.0-31.0); Chloride 94 mMol/L (98-107); Creatinine (Component) 0.8 mg/dL (0.6-1.3); Estimated Creatinine Clearance 137.5 mL/min (>60); Globulin 3.4 gm/dL (2.3-3.5); Glucose 200 mg/dL (74-106); Magnesium 1.7 mg/dL (1.6-2.6); Osmolality,Calculated 262 (275-295); Potassium 3.8 mMol/L (3.4-5.1); Sodium 128 mMol/L (136-145); Total Protein 7.7 gm/dL (5.7-8.2); eGFR > 60 See Note
--- NOTE | 2024-10-30 08:14 | PC.NURSE ---
Called RN to receive report for picc line inseriton, per El HOLGUIN, patient needs Ultrasound of arm to be completed first prior to having picc line insertion.
--- NOTE | 2024-10-30 08:23 | XR_ITS ---
Examination: Ultrasound-guided needle placement left basilic vein. Dual-lumen central line placement (PICC line). Fluoroscopy AP chest, portable, single view Exam date and time:October 30, 2024 0929 hours INDICATIONS: Need for long-term intravenous antibiotic therapy for osteomyelitis A timeout was completed verifying correct patient, procedure, site, positioning Informed consent provided Technique: The patient's site was prepped and draped in sterile fashion. Maximum Sterile Barrier Technique used including cap, mask, sterile gown, sterile gloves, and sterile full body drape. If ultrasound technique used: sterile gel and sterile probe covers. Hand Hygiene performed using proper scrub, soap and water, or alcohol-based hand rub. Site right portable ultrasound apparatus utilized to confirm patency of the left basilic vein Utilizing ultrasonographic guidance successful 21-gauge needle puncture into the left basilic vein Ultrasound images recorded and stored. 5 cc 1% lidocaine administered for local anesthetic. Successful micropuncture with a 21-gauge needle is performed. 0.18 wire guide is then introduced into the SVC under fluoroscopic guidance. Dual-lumen catheter dilator is then introduced, followed by the catheter in the SVC and proper position under fluoroscopic guidance. Successful aspiration of blood and flushing with heparinized saline is then performed in the 2 venous limbs. The catheter sutured in place. Findings: Under fluoroscopy, the tip of the catheter is in good position in the vena cava. Portable chest x-ray, post line placement is ordered. Estimated blood loss 3 cc The patient tolerated the procedure well and was in stable and satisfactory condition at completion of the procedure Impression: Successful ultrasound-guided needle placement left basilic vein Successful placement of dual lumen central line, percutaneous Fluoroscopy 0.1 minute radiation dose 3.01 milligray 1 spot fluoroscopic chest film. AP chest completion procedure demonstrates satisfactory position central line. May use central line.
[2024-10-30] MEDS: DOXYCYCLINE 100 MG TABLET PO ×2 (08:43→20:40)
[2024-10-30] MEDS: LIDOCAINE 5% 1 PATCH TOP (08:43)
[2024-10-30] MEDS: INSULIN LISPRO (AdmeLOG) 1 UNIT/0.01 ML UNIT SC ×2 (08:44→17:40)
[2024-10-30 09:50] LABS: INR 1.4 (0.9-1.3); Partial Thromboplastin Time 36.5 Seconds (22.0-36.0); Prothrombin Time 14.5 Seconds (9.0-12.2)
--- NOTE | 2024-10-30 10:13 | PC.NURSE ---
0929 per RN report, hospitalist stated patient did not need US of arm, patient picked up in med surg room and taken to IR department for picc line procedure
[2024-10-30] MEDS: LIDOCAINE INJ PF 1% 30 ML VIAL 4 ML INFL (10:16)
--- NOTE | 2024-10-30 10:25 | PC.SS ---
SS contacted patient's sister, Judith in regards to patient needing IV ABX until December 08. She informed SS she would be able to administer the medication to patient. [facility] however if [facility] not [facility] they are open to any HH agency.
--- NOTE | 2024-10-30 11:15 | PC.NURSE ---
1031 patient had picc line insertion to left upper arm, no bleeding noted, dressing applied. pt tolerated procedure well under local anesthesia, report given to El HOLGUIN, pt transferred back to room 381.
[2024-10-30] MEDS: HEPARIN SOD LOCK SYR 100 UNIT/ML 500 UNIT STFIELD (11:16)
[2024-10-30] MEDS: Magnesium Sulfate 2 GM Ivpb 2 GM/50 ML BAG IV (11:16)
--- NOTE | 2024-10-30 12:28 | EKG_ITS ---
[facility] Test Date: 2024-10-30 Pat Name: MOI DUENAS [facility] Data Input Clerk: LINWOOD : 1985 Requested By: Juan Manuel Turpin Order Number: [id number] Reading MD: Juan Manuel Turpin Measurements Intervals [place] Rate: 117 P: 27 CA: 199 QRS: 11 QRSD: 90 T: 7 QT: 293 QTc: 410 Interpretive Statements SINUS TACHYCARDIA POSSIBLE LEFT ATRIAL ENLARGEMENT [-0.1mV P WAVE IN V1/V2] ABNORMAL RHYTHM ECG Compared to ECG 10/22/2023 12:55:19 No significant changes /store/S0/[id number].pdf
--- NOTE | 2024-10-30 12:28 | XR_ITS ---
Examination: AP chest single view TECHNIQUE: AP portable upright chest single view Exam date and time: October 30, 2024 1302 hours INDICATIONS: Sepsis today FINDINGS: Normal heart size Lungs are clear. The osseous structures are intact. Left arm dual lumen PICC central line tip SVC satisfactory position IMPRESSION: No pneumonia identified
--- NOTE | 2024-10-30 12:45 | PD.RESDS ---
Planned Discharge Date 10/30/24 DS: Providers Provider Date of admission: 10/27/24 17:53 Primary care physician: Skyler Guerra MD Admitting Provider: Libby Graves MD Attending Provider on Admission: Juan Manuel Cooper DO Consults: 10/27/24 16:10 Consult to General Surgery Stat Comment: Consulting Provider: Ciera Grimaldo 10/27/24 17:22 Referral Registered Dietitian Routine Comment: 10/27/24 23:36 [facility] Referral - Nutrition Routine Comment: Positive screening for nutrition needs. 10/28/24 06:27 Referral Wound Care Routine Comment: 10/29/24 13:08 Consult to Infectious Diseases Routine Comment: PICC line osteo Consulting Provider: Patrice Hill 10/30/24 08:21 Referral Physical Therapy Routine Comment: Physician Instructions: Instructions: MSK pain from laying in bed, please help him exercise and find save way to reposition himself in bed Attending Provider on DC: Libby Graves MD Discharging Provider: Libby Graves MD DS: Diagnosis Problem List Completed Was Problem List Reviewed/Reconciled?: Yes Hospital Course Hospital Course Hospital course: Patient is a 39-year-old male with a past medical history of diabetes mellitus type 2 on insulin, cigarette use, and stated past medical history of HTN resolved who was admitted on 10/27/2024 for osteomyelitis of the right 2-4 digits. No overnight events reported for patient. Patient examined at bedside. Denied any chest pain or shortness of breath. Patient denied pyrexia or chils overnight. Stated denied any right foot pain, but stated he was having generalized body aches. Advised patient to get out of bed and sit up as he is currently does not have any pain on his right left from the osteomyelitis. Time Spent with Patient Time attestation: Total time spent providing and/or coordinating discharge services: Home Health Home Health Referral Orders: 10/30/24 09:22 Home Health Referral Routine Reason For Exam: debility Home-Bound The patient must either because of illness or injury, need the aid of supportive devices such as crutches, canes, wheelchairs, and walkers; the use of special transportation; or the assistance of another person in order to leave their place of residence; OR have a condition such that leaving his or her home is medically contraindicated. In addition, the patient also meets the following criteria: patient is normally unable to leave the home and leaving home requires considerable taxing effort. Addendum to Home Health Certification Practitioner's Certification: I certify that the patient has been under my care in the hospital and the care of attending physician (see below). We had a slhg-[id number] encounter on (see date below). My clinical findings indicate that the patient is home bound per the above criteria and the Home Health Services noted in these orders are medically necessary. The primary reason for the iclq-[id number] encounter is related to the fact that the patient requires home health services. Date Certifying [id number] Physician Encounter: 10/27/24 Physician's Name who will Assume Oversight for Services: Sklyer Guerra Physician's Phone No.who will Assume Oversight for Service: DYE COLORIST DYER - Community Resources: No PT to Evaluate: Yes PT to evaluate and provide a treatmnet plan to increase patient's mobility and strength. Wound Care: Yes Home Health RN - Wound Care Order: right foot dressing changes/evaluation IV Therapy: Yes IV Medication: Ceftriaxone IV Dose: 2gm IV Frequency: daily IV Stop Date: 12/08/24 Discontinue PICC Line Once Treatment Complete: Yes RN Safety Evaluation: Yes RN to evaluate and create a plan of care that will produce positive outcomes. Palliative Treatment: No Palliative treatment and evaluate the need for hospice. Home Health Aide - Personal Care: No Home Health Aide to assist with any ADL's. Exam Vital Signs Temp Pulse Resp BP Pulse Ox O2 Del Method 99.7 F 116 H 16 162/109 H 96 Room Air 10/30/24 12:00 10/30/24 12:00 10/30/24 12:00 10/30/24 12:00 10/30/24 12:10/30/24 12:00 Discharge Plan Plan Patient Disposition: Home w/HOME HEALTH Patient condition on transfer: Stable Care Plan Goals: Patient would need weekly CBC, ESR and CRP until completion of antibiotic course and removal of PICC line by the end of antibiotic course that is December 11, 2024 Prescriptions/Referrals Prescriptions/Med Rec: New doxycycline hyclate 100 mg tablet 100 mg PO BID 42 Days Qty: 84 0RF insulin degludec 100 unit/mL (3 mL) insulin pen 20 unit subcut HS Qty: 15 3RF Baqsimi 3 mg/actuation spray,non-aerosol 3 mg intranasal QDAY PRN (Reason: hypoglycmia) Qty: 2 0RF (DME) FreeStyle Shelly 3 [place] Misc See Rx Instructions .Route Qty: 1 0RF Rx Instructions: As directed Continued (DME) pen needle, diabetic [Pen Needle] 29 gauge x 1/2 needle See Rx Instructions .Route Qty: 100 0RF Rx Instructions: Once per day (DME) FreeStyle Shelly 3 Sensor Device See Rx Instructions .Route Qty: 2 0RF Rx Instructions: Use daily Discontinued insulin glargine 100 unit/mL (3 mL) insulin pen 10 unit subcut QPM Qty: 15 0RF No Action metformin 1,000 mg Tablet 1,000 mg PO QDAY Patient Comments: Patient states he takes once in awhile due to running out of insulin. Rx Instructions: Patient states he takes once in awhile due to running out of insulin. Referrals: Skyler Guerra MD [Primary Care Provider] - Libby Graves MD [Resident] - Patient/Caregiver Discharge Instructions Print Language: Moldovan Stand Alone Forms: I[employer]ana Award Info., Patient Portal Info Letter Quality Discharge Quality Measures VTE prophylaxis
--- NOTE | 2024-10-30 12:55 | PC.NURSE ---
Responded to a Rapid Response for tachycardia, elevated WBC, and low grade fever. Sepsis alert called with physicians at bedside. No bolus per MD and will test for Influenza. Patient placed on monitor and will await further evalaution and results. Patient denies distress.
--- NOTE | 2024-10-30 12:58 | ESPR_ITS ---
<Statement entered by Dejon Regan MD - 10/30/24 13:30> Patient was seen and examined at the bedside. Overnight patient reported to have right shoulder pain with decreased active range of motion. Patient is postop day 1 after incision and drainage for osteomyelitis right foot. We are currently following ID specialist recommendation and continuing with IV ceftriaxone 2 g once a day and doxycycline 100 mg twice daily. PICC line was inserted today. Rapid response was called for sepsis alert. We repeated all the basic labs for him. Will likely follow-up on the repeat labs and keep him for 1 more day. We prescribed Tresiba 22 units nightly with CGM Freestyle tang 3 sensor and reader. He was advised to follow-up with his PCP as outpatient. All labs and orders were reviewed. Patient will need to continue IV ceftriaxone 2 g once a day until December 08, 2024 and doxycycline 100 mg twice daily until December 11, 2024 and will be discharged to home with home health. I saw and examined the patient, and I agree with current management stated by Dr Star MD,PGY1. Plan of care was discussed with the attending physician and resident physician. Disclaimer: Despite multiple revisions, due to the dictation software being used, the document bellow may not be free of grammatical errors including phonetic/typographic errors. However, this does not deter from our commitment to providing health care in the patient's best interest in mind. Dr. Shereen MD, PGY 2 Documentation for date of: 10/30/24 Subjective Subjective Interval history: Patient is a 39-year-old male with a past medical history of diabetes mellitus type 2 on insulin and cigarette use who was admitted on 10/27/2024 for acute osteomyelitits of the right foot. This morning patient complaining of bicep generalized pain bilaterally. Patient denied pyrexia or chills overnight. No swelling noted and patient denied history of DVT or family history of DVTs. NADIA wrist wrap ordered for right wrist as patient stated he was feeling tenderness. Patient stated he has been using his upper body strength to reposition himself on the bed frequently. Exam Vital Signs Temp Pulse Resp BP Pulse Ox O2 Del Method 99.7 F 116 H 16 162/109 H 96 Room Air 10/30/24 12:00 10/30/24 12:00 10/30/24 12:00 10/30/24 12:00 10/30/24 12:00 10/30/24 12:00 Narrative Exam General Appearance: Alert & Oriented X3, well-nourished male who is lying in bed in no acute distress. Generalized tenderness at bicep level, no swelling noted, and no erythema. Right foot does not show increase progression of erythema or swelling around wound site. HEENT: Skull symmetrical and atraumatic. Conjunctivae pin and moist. Pupils equal, round, reactive to light and accommodation (PERRL). External ear without lesion or discharge. Straight, nares patient, mucosa pink, no discharge. Cardio: Normal Rate and Rhythm with S1 and S2 heart sounds. No murmurs or extra heart sounds auscultated. No bruits on carotid auscultation. No peripheral edema or cyanosis. Lungs: Symmetric with good expansion. Chest and back non-tender. Breath sounds vesicular without crackles, wheezing or rhonchi Abdomen: Non-tender, Non-distended, Normal Reactive Bowel Sounds Neuro: Alert, cooperative, oriented to person, place, and time. Speech clear. CN grossly intact. Upper motor strength 5/5 and Lower motor strength 5/5. Sensation intact. Objective Labs 10/30/24 12:45 10/30/24 12:45 Labs: Laboratory Results - last 24 hr 10/30/24 04:35 WBC 23.7 H D RBC 4.37 L Hgb 12.5 L Hct 34.9 L MCV 80 MCH 28.6 MCHC 35.8 RDW Std Deviation 34.5 L Plt Count 308 D Neut % (Auto) 85 H Lymph % (Auto) 5 L [place]flower % (Auto) 9 Eos % (Auto) 0 Baso % (Auto) 0 Neut # (Auto) 20.2 H Lymph # (Auto) 1.2 [place] # (Auto) 2.1 H Eos # (Auto) 0.0 Baso # (Auto) 0.0 Immature Gran # (Auto) 0.15 H Absolute Nucleated RBC 0.00 Immature Gran % 1 H Nucleated RBC % 0 PT 14.5 H INR 1.4 H APTT 36.5 H Sodium 128 L Potassium 3.8 Chloride 94 L Carbon Dioxide 24.7 Anion Gap 9 BUN 12 Creatinine 0.8 Estim Creat Clear Calc 137.5 eGFR > 60 BUN/Creatinine Ratio 15 Glucose 200 H Calculated Osmolality 262 L Calcium 9.3 Corrected Calcium 9.3 Magnesium 1.7 Total Bilirubin 1.4 H D AST < 8 ALT 11 Alkaline Phosphatase 125 H Total Protein 7.7 Albumin 4.3 Globulin 3.4 Albumin/Globulin Ratio 1.3 Quality Measures Quality Measures none Assessment & Plan Assessment Current Active Medications: Generic Name Dose Route Start Last Admin Trade Name Freq PRN Reason Stop Dose Admin Acetaminophen 650 mg 10/27/24 17:19 Acetaminophen 325 Mg Tablet PO 11/26/24 17:18 Q6H PRN Mild Pain 1-3 or Fever >100.4 Hydrocodone Bitart/Acetaminophen 1 tab 10/27/24 17:19 10/30/24 05:25 Hydrocodone/Apap 5/325 Tablet PO 11/01/24 17:18 1 tab Q4HR PRN Administration PAIN SCALE 4-6 (Moderate Atorvastatin Calcium 40 mg 10/29/24 21:00 10/29/24 20:23 Atorvastatin Calcium 20 Mg Tablet PO 11/28/24 20:59 40 mg HS MORAIMA Administration Dextrose 25 ml 10/27/24 17:23 Dextrose 50%-Water Inj 50 Ml Syringe IV 11/26/24 17:22 Q15MIN PRN BG 50-70 responsive npo pt Dextrose 50 ml 10/27/24 17:23 Dextrose 50%-Water Inj 50 Ml Syringe IV 11/26/24 17:22 Q15MIN PRN BG <50 OR BG <70 & pt unresponsive Doxycycline Hyclate 100 mg 10/30/24 08:00 10/30/24 08:52 Doxycycline 100 Mg Tablet PO 11/06/24 07:59 Not Given BID MORAIMA Glucagon 1 mg 10/27/24 17:23 Glucagon Inj 1 Mg Vial IM Q15MIN PRN BG <70, and no IV access Heparin Sodium (Porcine) 5,000 unit 10/27/24 18:15 10/30/24 05:21 Heparin Sod Inj 5000 Unit/Ml Vial SC 11/10/24 18:14 5,000 unit Q12H MORAIMA Administration Hydralazine HCl 10 mg 10/28/24 00:21 10/29/24 20:24 Hydralazine Inj 20 Mg/Ml Vial IV 11/27/24 00:20 10 mg Q6HR PRN Administration systolic >170 Ceftriaxone Sodium 2 gm/ 50 mls @ 100 mls/hr 10/28/24 01:00 10/29/24 20:27 Sodium Chloride IV 11/04/24 00:59 100 mls/hr QDAY@2100 MORAIMA Administration Magnesium Sulfate 2 gm in 50 mls @ 25 mls/hr 10/30/24 11:00 10/30/24 11:16 Magnesium Sulfate Ivpb IV 10/30/24 12:59 25 mls/hr X1 ONE Administration Insulin Glargine 16 unit 10/30/24 21:00 Insulin Glargine (Lantus) 5 Unit/0.05 Ml (Per 5 Units) SC 11/29/24 20:59 HS MORAIMA Insulin Human Lispro 0 unit 10/28/24 11:30 10/30/24 08:44 Insulin Lispro (Admelog) 1 Unit/0.01 Ml Unit SC 11/27/24 11:29 4 unit AC [facility] Administration Protocol Insulin Human Lispro 3 unit 10/30/24 12:00 Insulin Lispro (Admelog) 1 Unit/0.01 Ml Unit SC 11/29/24 11:59 TIDWM [facility] Morphine Sulfate 1 mg 10/27/24 18:02 Morphine Sulf Inj 10 Mg/Ml Vial IVP 11/01/24 18:01 Q4HR PRN PAIN SCALE 7-10(Mod-Sev Nicotine 7 mg 10/27/24 17:45 10/30/24 08:44 Nicotine Patch 7 Mg/24 Hr Patch.Td24 TOP 11/26/24 17:44 Not Given QDAY MORAIMA Plan Patient is a 39-year-old male with a past medical history of diabetes mellitus type 2 on insulin and cigarette use who was admitted on 10/27/2024 for acute osteomyelitits of the right foot. #Sepsis, secondary to lower extremity #R. lower extremity digits (2-4 digits) s/p I&D 10/29/2024 #Osteomyelitis #Cellulits, Soft Tissue Infection #Diabetic Foot Secondary to trauma and complicated by non-adherance to medication and poor glycemic control. Elevated A1c during previous hospital visit 10/28/2024-Ankle Brachial Index within upper normal limit at 1.2, which is less than 1.3 and flow illustrated triphasic, unlikely PID. Given diabetes history, this is likely decreasing healing ability. (10/29/2024): I& D on (10/29/2024) of necrotic tissue of the 2th-4th toes from cellulitis-->progressing to osteomyelitis; Dr. Hill -ID recommendations-IV Antibiotics rocephin 2 g per day IV & Doxycyline 100 mg BID PO fro six week from October 27-->December 10, 2024 (10/30/2024) Sepsis alert called secondary to tachycardia, elevated WBC, and known source of infection. Lactic acid 1.1, Procalcitonin 0.79, and WBC 23.7. Pending new blood and urine culture. Diagnostics: Foot MRI (10/29/2024): Osteomyelitis proximal middle and distal phalanges fourth digit; Osteomyelitis ungual tuft tips distal phalanges second and third digits; Fluid-filled soft tissue abscess both dorsal to the third and fourth digits and plantar to the fourth digit Foot X-ray (10/27/2024): Fracture at the base of the proximal phalanx fourth digit. Prominent osteomyelitis proximal middle and distal phalanges fourth digit Also osteomyelitis ungual tuft tip 6 distal phalanges third and second digits ankle/brachial index:Right ankle/brachial index is 1.2., Triphasic flow in tested artieries. NO Significant obstructive arterial disease. Consider CTA as outpatinet Blood Culture(10/27/2024): negative 48 hours Micro Wound & Tissue (10/27/2024): Collected prematurley, added instructions for during procedure.-->mixed julius noted Plan: -IR consult placed for PICC -Ceftriazone 2 mg IV QDay (10/28/2024---) at 1 AM Day 2 -Vancomycin Pharmacy to dose (08/27/2024--) Day 3 -New blood and urine culture pending -Zosyn 3.375 gm IV X 1 (10/27/2024) stopped -Tetnus shot 10/28/2024 -Consider CTA of lower extremities as outpatient -Consult General Surgery,Dr. Grimaldo, appreciate recommendations. -Consult Infectious Disease, appreciate recommendations, Dr. Hill #Diabetes Mellitus Type 2, non-insulin dependent #Hyperglycemic Etiology: Diagnosed with diabetes melllitus type 2 in 2022, currenlty Insulin dependent 10 units Lantus HS with Metformin. -ASCVD: High-intensity statin recommended because of know diabetes & 10 year risk factor of NE is 16.8% in next 10 years. Diagnosis: Lipid Panel (10/28/2024): Triglycerides 106, Cholesterol 169, LDL 120, HDL 28 L A1c (09/30/2024): 9.7-->A1c (10/28/2024) 9.7 Plan: -Lantus 18 -Lispro 3 units with meals -Sliding Scale -Atorvastatin 40 mg HS -Fasting glucose goal of 140-180 -Diabetic Education -Dietitian Referral #Current Smoker 2pack year history (10 years of smoking cigarettes about 1 pack per week). Patient declined but order placed. Plan -Nicotine Patch Moraima. Health Maintenance: Disp: Pt is currently admitted to floors for further management of osteomyelitis, awaiting improved wbc count. FEN: low carb consisten low. DVT: on subQ heparin-currently holding given PICC line, restart tomorrow. Code: Full code - The patient's plan was discussed with attending Dr. Cooper and senior residents Dr. Shereen Graves MD PGY1 Internal Medicine Attending Provider Attestation/Addendum I have discussed and was present for the essential components of the history, physical examination, diagnosis, and treatment plan with the resident. I agree with the patient's care as documented by the resident and amended herein by me. Timoteo Cooper, DO. In short 39-year-old male with significant past medical history of uncontrolled DM2 and tobacco use who was admitted for osteomyelitis of the right foot. Patient initially found to be septic, now status post I&D on 10/[address] Grimaldo. No acute events overnight, vital signs stable, afebrile however rapid response called later in the morning for a sepsis alert for tachycardia, patient's WBC also elevated since previous day, likely reactive from procedure. Lactic acid 1.1, Pro-Too was 0.79, WBC today 23.7. Blood cultures pending. Patient felt fine during this event, no subjective complaints. Significant problem list/plan: #Right foot osteomyelitis ?Status post debridement -Infectious disease consulted will continue ceftriaxone 2 g daily and doxycycline 100 mg twice daily for 6 weeks course. PICC line placed -Follow-up with cultures -Wound care on board Although this document has been carefully reviewed, there may still be some phonetic and other typographical errors. These errors are purely grammatical due to imperfections in the software program and should not be construed in any way to compromise the substance of the patient's medical care during this visit.
--- NOTE | 2024-10-30 12:59 | EVENTNT_ITS ---
<Statement entered by Dejon Regan MD - 10/30/24 13:31> Patient had a rapid response for sepsis alert. Patient was tachycardic with a fever of 99 with possible source osteomyelitis. Sepsis alert was initiated and repeat basic labs CBC CMP, lactic acid, blood cultures were ordered. We are continuing the current antibiotic therapy as per ID specialist recommendations. No IV fluid bolus given blood pressure was stable. All labs and orders were reviewed. I saw and examined the patient, and I agree with current management stated by Dr Star MD,PGY1. Plan of care was discussed with the attending physician and resident physician. Disclaimer: Despite multiple revisions, due to the dictation software being used, the document bellow may not be free of grammatical errors including phonetic/typographic errors. However, this does not deter from our commitment to providing health care in the patient's best interest in mind. Dr. Shereen MD, PGY 2 Documentation for date of: 10/30/24 Rapid response called at approximately 12:25 PM for an elevated temperature. Temperature of 99.6, elevated WBC 23.7, Tachycardia of 116 with known source of infection from osteomyelitis. Patient MAP >65 and able to protect airway, breathing rate within range, and circulation intake. Saturating well on room air. No worsening erythema noted on right foot. Pedal pulses present 2+. Patient had an I&D recently for osteomyelitis of right foot. l Actions take: -CBC, CMB, chest x-ray, blood culture, urine culture, and procalcitonin. -Sepsis alert called. - The patient's plan was discussed with attending Dr. Cooper and senior residents Dr. Shereen Graves MD PGY1 Internal Medicine
[2024-10-30 13:04] LABS: Lactate (Lactic Acid) 1.1 mMol/L (0.4-2.0)
[2024-10-30 13:05] LABS: Basophils % (Auto) 0 % (0-2.5); Eosinophils % (Auto) 0 % (0-10); Hematocrit 36.1 % (41.0-53.0); Hemoglobin 12.6 g/dL (13.5-16.0); Immature Granulocytes % (Auto) 1 % (0-0); Immature Granulocytes Auto 0.13 Thou/mm3 (0.00-0.00); Lymphocytes # (Auto) 1.3 Thou/mm3 (1.0-4.8); Lymphocytes % (Auto) 6 % (10-50); Mean Corpuscular HGB Conc 34.9 g/dl (31.0-37.0); Mean Corpuscular Hemoglobin 27.9 pg (25.0-35.0); Mean Corpuscular Volume 80 fL (80-100); Monocytes % (Auto) 9 % (0-12); Neutrophils # (Auto) 18.8 Thou/mm3 (1.8-7.7); Neutrophils % (Auto) 85 % (37-80); Nucleated Red Blood Cell % 0 /100 WBC (0); Platelet Count 295 Thou/mm3 (140-440); RDW Standard Deviation 34.7 fL (35.1-43.9); Red Blood Count 4.51 Miln/mm3 (4.50-5.90); White Blood Count 22.3 Thou/mm3 (3.8-10.6)
[2024-10-30 13:42] LABS: Alanine Aminotransferase 13 U/L (10-49); Albumin, Serum 4.2 gm/dL (3.5-5.0); Albumin/Globulin Ratio 1.2 (1.2-2.2); Alkaline Phosphatase 123 U/L (46-116); Anion Gap 7 (7-16); Aspartate Amino Transferase < 10 U/L (0-34); BUN/Creatinine Ratio 16 Ratio (12-20); Bilirubin,Total 1.4 mg/dL (0.3-1.2); Blood Urea Nitrogen 13 mg/dL (9-23); Calcium 9.1 mg/dL (8.3-10.6); Calcium (Corrected) 9.1 mg/dL (8.5-10.1); Carbon Dioxide 24.3 mMol/L (20.0-31.0); Chloride 96 mMol/L (98-107); Creatinine (Component) 0.8 mg/dL (0.6-1.3); Estimated Creatinine Clearance 137.5 mL/min (>60); Globulin 3.5 gm/dL (2.3-3.5); Glucose 197 mg/dL (74-106); Osmolality,Calculated 260 (275-295); Potassium 4.1 mMol/L (3.4-5.1); Procalcitonin 0.79 ng/ml (0.0-0.49); Sodium 127 mMol/L (136-145); Total Protein 7.7 gm/dL (5.7-8.2); Troponin I < 0.020 ng/mL (0.0-0.045); eGFR > 60 See Note
--- NOTE | 2024-10-30 13:56 | PD.SURPROG ---
Documentation for date of: 10/30/24 Subjective Subjective Brief History: 39M with HTn, DMII presenting with R foot pain. Pt reports a month ago he hurt his foot and for the past week he has noted a worsening appearance of the toes. He saw his PCP who prescribed Augmentin but as patient did not see any improvement he presented to ER yesterday. X-ray shows osteomyelitis of the right fourth digit, as well as of the distal phalanges of the second and third digits. Patient has normal WBC, A1c 9.7 PMH: HTN, DMII PSHx: Rotator cuff repair Meds: Metformin, lantus Allergies: NKDA Social hx: reports smoking cigarettes 1 pack per week for 10+ years Narrative: Pt continues to report general soreness, states it is worst in his R arm, denies any lower extremity pain including his right toes that were debrided yesterday. Tmax 99.7, HR 100-110s and WBC up to 22 today, blood cultures pending Exam Vital Signs Temp Pulse Resp BP Pulse Ox O2 Del Method 99.7 F 116 H 16 162/109 H 96 Room Air 10/30/24 12:00 10/30/24 12:00 10/30/24 12:00 10/30/24 12:00 10/30/24 12:00 10/30/24 12:00 Constitutional Constitutional: no acute distress Routine Respiratory Exam Respiratory: Present no resp distress Routine Extremities Exam Comments: right toes with beefy red tissue at sites of debridement, no erythema, no fluctuance or tenderness Results Results: Laboratory Laboratory results: results reviewed Assessment & Plan Plan 39M with HTN, DMII presenting with osteomyelitis of right 2-4th toes, most extensive of the 4th toe s/p excisional debridement 10/29/24. Today pt developed WBC 20s, low grade fever and tachycardia; given the appearance of the foot it does not seem the likely source Continue abx Wound care Will follow up
--- NOTE | 2024-10-30 14:15 | PC.WOUND ---
Dr. Grimaldo at bedside post [employer]ILOS[employer]HY INSTRUCTOR. Right foot assessed with no new orders received, to continue adaptic daily dressings and OP WHD followup on discharge.
--- NOTE | 2024-10-30 14:22 | PC.PT ---
PT eval witheld today. patient had a Rapid response today. Will try again tomorrow.
[2024-10-30 14:30] LABS: Collection Type, Urine Clean Catch; Squamous Epithelial Cell,Urine 0 /hpf (0-5)
[2024-10-30 15:19] LABS: Bilirubin,Urine Negative (Negative); Blood,Urine Negative (Negative); Clarity,Urine Clear (Clear/Hazy); Color,Urine Yellow (Lt Yel-Yel); Glucose, Urine 4+ (Negative); Ketones,Urine 1+ (Negative); Leukocyte Esterase,Urine Negative (Negative); Nitrite,Urine Negative (Negative); Protein,Urine 1+ (Neg - Trace); RBC,Urine 2 /hpf (0-3); Specific Gravity,Urine 1.027 (1.001-1.035); WBC,Urine 1 /hpf (0-5)
[2024-10-30] MEDS: INSULIN LISPRO (AdmeLOG) 1 UNIT/0.01 ML UNIT 3 UNIT SC (17:40)
[2024-10-30] MEDS: ACETAMINOPHEN 325 MG TABLET 650 MG PO (17:41)
[2024-10-30 19:19] LABS: Influenza A Ag Negative; Influenza B Ag Negative
[2024-10-30] MEDS: SODIUM CHLORIDE 0.9% 1000 ML 1,000 ML 999 ML IV (19:23)
[2024-10-30] MEDS: cefTRIAXone 2 GM in SODIUM CHLORIDE 0.9% (P) 50 ML IV (20:40)
[2024-10-30] MEDS: ATORVASTATIN CALCIUM 20 MG TABLET 40 MG PO (20:40)
[2024-10-30] MEDS: INSULIN GLARGINE (Lantus) 5 UNIT/0.05 ML (PER 5 UNITS) 20 UNIT SC (21:05)
[2024-10-31] VITALS (9 sets, daily range): BP systolic 113–141; BP diastolic 79–97; PULSE 83–114; RESP 16–18; TEMP 36.1–36.7; O2SAT 96–98
[2024-10-31 05:51] LABS: Basophils % (Auto) 0 % (0-2.5); Eosinophils % (Auto) 0 % (0-10); Hematocrit 33.6 % (41.0-53.0); Hemoglobin 11.5 g/dL (13.5-16.0); Immature Granulocytes % (Auto) 1 % (0-0); Immature Granulocytes Auto 0.15 Thou/mm3 (0.00-0.00); Lymphocytes # (Auto) 1.3 Thou/mm3 (1.0-4.8); Lymphocytes % (Auto) 6 % (10-50); Mean Corpuscular HGB Conc 34.2 g/dl (31.0-37.0); Mean Corpuscular Hemoglobin 27.7 pg (25.0-35.0); Mean Corpuscular Volume 81 fL (80-100); Monocytes # (Auto) 1.8 Thou/mm3 (0.0-0.8); Monocytes % (Auto) 8 % (0-12); Neutrophils # (Auto) 18.6 Thou/mm3 (1.8-7.7); Neutrophils % (Auto) 85 % (37-80); Nucleated Red Blood Cell % 0 /100 WBC (0); Platelet Count 255 Thou/mm3 (140-440); RDW Standard Deviation 35.1 fL (35.1-43.9); Red Blood Count 4.15 Miln/mm3 (4.50-5.90); White Blood Count 21.9 Thou/mm3 (3.8-10.6)
[2024-10-31 06:37] LABS: Alanine Aminotransferase 14 U/L (10-49); Albumin, Serum 3.9 gm/dL (3.5-5.0); Albumin/Globulin Ratio 1.1 (1.2-2.2); Alkaline Phosphatase 119 U/L (46-116); Anion Gap 3 (7-16); Aspartate Amino Transferase < 10 U/L (0-34); BUN/Creatinine Ratio 19 Ratio (12-20); Blood Urea Nitrogen 13 mg/dL (9-23); Calcium (Corrected) 9.1 mg/dL (8.5-10.1); Carbon Dioxide 25.7 mMol/L (20.0-31.0); Chloride 99 mMol/L (98-107); Creatinine (Component) 0.7 mg/dL (0.6-1.3); Estimated Creatinine Clearance 157.1 mL/min (>60); Globulin 3.4 gm/dL (2.3-3.5); Glucose 165 mg/dL (74-106); Osmolality,Calculated 261 (275-295); Potassium 3.9 mMol/L (3.4-5.1); Sodium 128 mMol/L (136-145); Total Protein 7.3 gm/dL (5.7-8.2); eGFR > 60 See Note
[2024-10-31] MEDS: INSULIN LISPRO (AdmeLOG) 1 UNIT/0.01 ML UNIT SC ×3 (07:54→17:31)
[2024-10-31] MEDS: INSULIN LISPRO (AdmeLOG) 1 UNIT/0.01 ML UNIT 3 UNIT SC ×3 (07:54→17:32)
[2024-10-31] MEDS: SODIUM CHLORIDE 0.9% 1000 ML 1,000 ML 100 ML IV (08:23)
[2024-10-31] MEDS: PIPER/TAZO 3.375 GM 50 ML IV ×3 (08:24→21:05)
[2024-10-31] MEDS: DOXYCYCLINE 100 MG TABLET PO ×2 (08:25→20:58)
--- NOTE | 2024-10-31 09:30 | ESPR_ITS ---
Subjective Subjective Interval history: on iv rx as ordered by others. no change in recs Exam Vital Signs Temp Pulse Resp BP Pulse Ox O2 Del Method 98.0 F 107 H 18 137/90 H 97 Room Air 10/31/24 08:00 10/31/24 08:00 10/31/24 08:00 10/31/24 08:00 10/31/24 08:00 10/31/24 08:00 Narrative Exam limited visit Objective - Internal Medicine Labs 10/31/24 05:19 10/31/24 05:19 Labs: Laboratory Results - last 24 hr 10/30/24 10/30/24 10/30/24 04:35 12:45 14:05 WBC 22.3 H RBC 4.51 Hgb 12.6 L Hct 36.1 L MCV 80 MCH 27.9 MCHC 34.9 RDW Std Deviation 34.7 L Plt Count 295 Neut % (Auto) 85 H Lymph % (Auto) 6 L [place] % (Auto) 9 Eos % (Auto) 0 Baso % (Auto) 0 Neut # (Auto) 18.8 H Lymph # (Auto) 1.3 [place] # (Auto) 2.0 H Eos # (Auto) 0.0 Baso # (Auto) 0.0 Immature Gran # (Auto) 0.13 H Absolute Nucleated RBC 0.00 Immature Gran % 1 H Nucleated RBC % 0 PT 14.5 H INR 1.4 H APTT 36.5 H Sodium 127 L Potassium 4.1 Chloride 96 L Carbon Dioxide 24.3 Anion Gap 7 BUN 13 Creatinine 0.8 Estim Creat Clear Calc 137.5 eGFR > 60 BUN/Creatinine Ratio 16 Glucose 197 H Calculated Osmolality 260 L Lactic Acid 1.1 Calcium 9.1 Corrected Calcium 9.1 Magnesium Total Bilirubin 1.4 H AST < 10 ALT 13 Alkaline Phosphatase 123 H Troponin I < 0.020 Total Protein 7.7 Albumin 4.2 Globulin 3.5 Albumin/Globulin Ratio 1.2 Procalcitonin 0.79 H Ur Collection Type Clean Catch Urine Color Yellow Urine Clarity Clear Urine pH 6.0 Ur Specific [place] 1.027 Urine Protein 1+ A Urine Glucose (UA) 4+ A Urine Ketones 1+ A Urine Blood Negative Urine Nitrite Negative Urine Bilirubin Negative Urine Urobilinogen (Auto) 3.0 Ur Leukocyte Esterase Negative Urine RBC 2 Urine WBC 1 Ur Squamous Epith Cells 0 Urine Bacteria None Influenza A (Rapid) Influenza B (Rapid) 12/12/24 12/13/24 17:45 05:19 WBC 21.9 H RBC 4.15 L Hgb 11.5 L Hct 33.6 L MCV 81 MCH 27.7 MCHC 34.2 RDW Std Deviation 35.1 Plt Count 255 D Neut % (Auto) 85 H Lymph % (Auto) 6 L [place] % (Auto) 8 Eos % (Auto) 0 Baso % (Auto) 0 Neut # (Auto) 18.6 H Lymph # (Auto) 1.3 [place] # (Auto) 1.8 H Eos # (Auto) 0.0 Baso # (Auto) 0.0 Immature Gran # (Auto) 0.15 H Absolute Nucleated RBC 0.00 Immature Gran % 1 H Nucleated RBC % 0 PT INR APTT Sodium 128 L Potassium 3.9 Chloride 99 Carbon Dioxide 25.7 Anion Gap 3 L BUN 13 Creatinine 0.7 Estim Creat Clear Calc 157.1 eGFR > 60 BUN/Creatinine Ratio 19 Glucose 165 H Calculated Osmolality 261 L Lactic Acid Calcium 9.0 Corrected Calcium 9.1 Magnesium 2.0 Total Bilirubin 1.0 AST < 10 ALT 14 Alkaline Phosphatase 119 H Troponin I Total Protein 7.3 Albumin 3.9 Globulin 3.4 Albumin/Globulin Ratio 1.1 L Procalcitonin Ur Collection Type Urine Color Urine Clarity Urine pH Ur Specific [place] Urine Protein Urine Glucose (UA) Urine Ketones Urine Blood Urine Nitrite Urine Bilirubin Urine Urobilinogen (Auto) Ur Leukocyte Esterase Urine RBC Urine WBC Ur Squamous Epith Cells Urine Bacteria Influenza A (Rapid) Negative Influenza B (Rapid) Negative Assessment & Plan A&P Narrative osteo of foot esr high, imaging abnormal dm II, a1c 9.7 , high hld. no rx noted as outpt if bc remain neg at 48h, then change vanco to doxy 100 mg po bid and zosyn to rocephin 2 gm iv daily and plan on rx from 10/27 thru 12/08 with weekly cbc, renal panel, esr on rx and line removal at end of rx improved dm control also essential to recovery. if pt has an amputation, infection would be removed and role of abx more limited to absent. will see again prn. if surgery occurs then rx may be more limited, but no additional surgery appears to be planned at this time Time Spent With Patient Time: Total time spent is greater than 50% in coordination of care (as documented) at patient's floor/unit and/or counseling patient:
[2024-10-31] MEDS: HYDROcodone/APAP 5/325 TABLET 1 TAB PO ×2 (11:51→17:32)
--- NOTE | 2024-10-31 12:32 | PC.PT ---
PT eval only. Patient is xI with bed mobility, transfers, and ambulation with no DME. Patient is at PLOF.
--- NOTE | 2024-10-31 16:22 | PD.HHPROG ---
Documentation for date of: 10/31/24 Subjective - Hospitalist Subjective Interval history: Patient seen and evaluated this AM. He states he is feeling improved and denies any palpitations or shortness of breath. He denies any active chest pain or pain in his foot. Patient states he feels dehydrated. He denies any subjective fevers or chills. Tmax of 100.6 overnight. Review of Systems Review of Systems Systems Reviewed: All systems reviewed, normal except as documented Exam Vital Signs Temp Pulse Resp BP Pulse Ox O2 Del Method 97.6 F 104 H 17 113/79 97 Room Air 10/31/24 16:00 10/31/24 16:00 10/31/24 16:00 10/31/24 16:00 10/31/24 16:00 10/31/24 16:00 Narrative Gen: No acute distress HEENT: NCAT, PERRLOU, Sclera anicteric, conjunctiva noninjected, oral mucosa moist without erythema Neck: Supple, full range of motion, no LAD CV: RRR, no murmurs, rubs or gallops Resp: CTAB/L, no wheezing, rhonchi or rales GI: abdomen soft, bowel sounds noted, no tenderness to palpation, no guarding or rebound tenderness, no organomegaly Skin: clean, dry, no rashes, lesions or ecchymosis Ext: right foot dressing Clean, dry and intact Neuro: A&O x3, CN II- XII intact b/l, no focal neurological deficits Objective - Hospitalist Labs Diagram: 10/31/24 05:19 10/31/24 05:19 Labs: Laboratory Results - last 24 hr 10/30/24 10/31/24 17:45 05:19 WBC 21.9 H RBC 4.15 L Hgb 11.5 L Hct 33.6 L MCV 81 MCH 27.7 MCHC 34.2 RDW Std Deviation 35.1 Plt Count 255 D Neut % (Auto) 85 H Lymph % (Auto) 6 L [place] % (Auto) 8 Eos % (Auto) 0 Baso % (Auto) 0 Neut # (Auto) 18.6 H Lymph # (Auto) 1.3 [place] # (Auto) 1.8 H Eos # (Auto) 0.0 Baso # (Auto) 0.0 Immature Gran # (Auto) 0.15 H Absolute Nucleated RBC 0.00 Immature Gran % 1 H Nucleated RBC % 0 Sodium 128 L Potassium 3.9 Chloride 99 Carbon Dioxide 25.7 Anion Gap 3 L BUN 13 Creatinine 0.7 Estim Creat Clear Calc 157.1 eGFR > 60 BUN/Creatinine Ratio 19 Glucose 165 H Calculated Osmolality 261 L Calcium 9.0 Corrected Calcium 9.1 Magnesium 2.0 Total Bilirubin 1.0 AST < 10 ALT 14 Alkaline Phosphatase 119 H Total Protein 7.3 Albumin 3.9 Globulin 3.4 Albumin/Globulin Ratio 1.1 L Influenza A (Rapid) Negative Influenza B (Rapid) Negative Assessment & Plan Patient Synopsis Patient is a 39-year-old male with a past medical history of diabetes mellitus type 2 on insulin and cigarette use who was admitted on 10/27/2024 for acute osteomyelitits of the right foot. #Sepsis, secondary to lower extremity #R. lower extremity digits (2-4 digits) s/p I&D 10/29/2024 #Osteomyelitis #Cellulits, Soft Tissue Infection #Diabetic Foot Secondary to trauma and complicated by non-adherance to medication and poor glycemic control. Elevated A1c during previous hospital visit 10/28/2024-Ankle Brachial Index within upper normal limit at 1.2, which is less than 1.3 and flow illustrated triphasic, unlikely PID. Given diabetes history, this is likely decreasing healing ability. (10/29/2024): I& D on (10/29/2024) of necrotic tissue of the 2th-4th toes from cellulitis-->progressing to osteomyelitis; Dr. Hill -ID recommendations-IV Antibiotics rocephin 2 g per day IV & Doxycyline 100 mg BID PO for six week from October 27-->December 10, 2024 (10/30/2024) Sepsis alert called secondary to tachycardia, elevated WBC, and known source of infection. Lactic acid 1.1, Procalcitonin 0.79, and WBC 23.7. Pending new blood and urine culture. Diagnostics: Foot MRI (10/29/2024): Osteomyelitis proximal middle and distal phalanges fourth digit; Osteomyelitis ungual tuft tips distal phalanges second and third digits; Fluid-filled soft tissue abscess both dorsal to the third and fourth digits and plantar to the fourth digit Foot X-ray (10/27/2024): Fracture at the base of the proximal phalanx fourth digit. Prominent osteomyelitis proximal middle and distal phalanges fourth digit Also osteomyelitis ungual tuft tip 6 distal phalanges third and second digits ankle/brachial index:Right ankle/brachial index is 1.2., Triphasic flow in tested artieries. NO Significant obstructive arterial disease. Consider CTA as outpatinet Blood Culture(10/27/2024): negative 48 hours Micro Wound & Tissue (10/27/2024): Collected prematurely, added instructions for during procedure.-->mixed julius noted Plan: -Tetanus shot 10/28/2024 - PICC line placed on 10/30/24 - Ceftriaxone 2 mg IV QDay (10/28/2024--10/30/24), Escalated antibiotics to zosyn given persistent tachycardia and fevers - F/u repeat blood and urine cultures. CXR negative for pneumonia, nor does patient have any clinical signs or symptoms of pneumonia. - continue with IV fluid hydration - continue with wound care #Diabetes Mellitus Type 2, non-insulin dependent. Uncontrolled Etiology: Diagnosed with diabetes melllitus type 2 in 2022, currenlty Insulin dependent 10 units Lantus HS with Metformin. -ASCVD: High-intensity statin recommended because of know diabetes & 10 year risk factor of PA is 16.8% in next 10 years. Diagnosis: Lipid Panel (10/28/2024): Triglycerides 106, Cholesterol 169, LDL 120, HDL 28 L A1c (09/30/2024): 9.7-->A1c (10/28/2024) 9.7 Plan: -Continue wtih Lantus 18, Lispro 3 units with meals and sliding scale -Atorvastatin 40 mg HS -Fasting glucose goal of 140-180 -Diabetic Education -Dietitian Referral #Chronic tobacco use 2pack year history (10 years of smoking cigarettes about 1 pack per week). Patient declined but order placed. Plan -Nicotine Patch Moraima. -counselled patient on cessation of tobacco use Health Maintenance: Disp: Pt is currently admitted to floors for further management of osteomyelitis, awaiting improved wbc count. FEN: low carb consisten low. DVT: on subQ heparin-currently holding given PICC line, restart tomorrow. Code: Full code Time Spent with Patient Time: Total time spent is greater than 50% in coordination of care (as documented) at patient's floor/unit and/or counseling patient: Time with patient: 25 - 35 minutes Reason for Continued Stay Reason for continued stay: further monitoring, further dx testing and IV antibiotics Quality Measures Quality Measures none
[2024-10-31] MEDS: INSULIN GLARGINE (Lantus) 5 UNIT/0.05 ML (PER 5 UNITS) 20 UNIT SC (20:53)
[2024-10-31] MEDS: ATORVASTATIN CALCIUM 20 MG TABLET 40 MG PO (20:58)
[2024-11-01] VITALS (12 sets, daily range): BP systolic 114–140; BP diastolic 80–95; PULSE 88–103; RESP 16–18; TEMP 36.2–37.3; O2SAT 97–99
[2024-11-01] MEDS: HYDROcodone/APAP 5/325 TABLET 1 TAB PO ×3 (03:58→21:21)
[2024-11-01] MEDS: PIPER/TAZO 3.375 GM 50 ML IV ×3 (05:07→21:21)
[2024-11-01 06:47] LABS: Alanine Aminotransferase 15 U/L (10-49); Albumin, Serum 3.8 gm/dL (3.5-5.0); Albumin/Globulin Ratio 1.2 (1.2-2.2); Alkaline Phosphatase 103 U/L (46-116); Anion Gap 4 (7-16); Aspartate Amino Transferase 11 U/L (0-34); BUN/Creatinine Ratio 19 Ratio (12-20); Bilirubin,Total 0.7 mg/dL (0.3-1.2); Blood Urea Nitrogen 13 mg/dL (9-23); Calcium 8.8 mg/dL (8.3-10.6); Carbon Dioxide 27.1 mMol/L (20.0-31.0); Chloride 99 mMol/L (98-107); Creatinine (Component) 0.7 mg/dL (0.6-1.3); Estimated Creatinine Clearance 157.1 mL/min (>60); Globulin 3.3 gm/dL (2.3-3.5); Glucose 118 mg/dL (74-106); Osmolality,Calculated 261 (275-295); Potassium 3.6 mMol/L (3.4-5.1); Sodium 130 mMol/L (136-145); Total Protein 7.1 gm/dL (5.7-8.2); eGFR > 60 See Note
[2024-11-01 07:09] LABS: Basophils % (Auto) 0 % (0-2.5); Eosinophils % (Auto) 0 % (0-10); Hematocrit 31.4 % (41.0-53.0); Hemoglobin 10.7 g/dL (13.5-16.0); Immature Granulocytes % (Auto) 1 % (0-0); Immature Granulocytes Auto 0.09 Thou/mm3 (0.00-0.00); Lymphocytes # (Auto) 1.4 Thou/mm3 (1.0-4.8); Lymphocytes % (Auto) 10 % (10-50); Mean Corpuscular HGB Conc 34.1 g/dl (31.0-37.0); Mean Corpuscular Hemoglobin 28.2 pg (25.0-35.0); Mean Corpuscular Volume 83 fL (80-100); Monocytes # (Auto) 1.1 Thou/mm3 (0.0-0.8); Monocytes % (Auto) 7 % (0-12); Neutrophils # (Auto) 11.9 Thou/mm3 (1.8-7.7); Neutrophils % (Auto) 82 % (37-80); Nucleated Red Blood Cell % 0 /100 WBC (0); Platelet Count 252 Thou/mm3 (140-440); RDW Standard Deviation 36.8 fL (35.1-43.9); White Blood Count 14.5 Thou/mm3 (3.8-10.6)
[2024-11-01 07:30] LABS: Magnesium 2.1 mg/dL (1.6-2.6)
[2024-11-01] MEDS: INSULIN LISPRO (AdmeLOG) 1 UNIT/0.01 ML UNIT 3 UNIT SC ×3 (07:36→16:34)
[2024-11-01] MEDS: DOXYCYCLINE 100 MG TABLET PO ×2 (08:48→21:22)
[2024-11-01] MEDS: POTASSIUM CHLORIDE 20 mEq TABCR 40 MEQ PO (08:49)
--- NOTE | 2024-11-01 09:19 | PC.CM ---
Addendum entered by Joycelyn Somers RN 11/01/24 17:57: 8 HH agencies refused the pt. No accepting as of now. Original Note: Pt needs HH for IV abx. HH referral sent on [facility] to HH agencies and [facility]. Awaiting responses.
--- NOTE | 2024-11-01 12:02 | PC.NURSE ---
notified on the pt. left wrist pain and Ok to enforce mayra wrap/ splint .
[2024-11-01] MEDS: ASCORBIC ACID 250 MG TABLET PO (14:59)
[2024-11-01] MEDS: ZINC SULFATE 220 MG CAPSULE PO (14:59)
--- NOTE | 2024-11-01 16:04 | ESPR_ITS ---
<Statement entered by Dejon Regan MD - 11/01/24 19:36> Patient was seen and examined at the bedside. Patient reported that he had some mild left wrist pain and appears to be tendinitis. He was explained that he would need PT exercises and analgesic spray. He is continued to be on [place]. Patient was given IV fluids for sinus tachycardia due to underlying sepsis. We are waiting on blood cultures for 48 hours to be negative and will likely de- escalate from Zosyn to 2 g ceftriaxone and anticipate discharge once home health orders are ready. All labs and orders were reviewed. I saw and examined the patient, and I agree with current management stated by Dr Star MD,PGY1. Plan of care was discussed with the attending physician and resident physician. Disclaimer: Despite multiple revisions, due to the dictation software being used, the document bellow may not be free of grammatical errors including phonetic/typographic errors. However, this does not deter from our commitment to providing health care in the patient's best interest in mind. Dr. Shereen MD, PGY 2 Documentation for date of: 11/01/24 Subjective Subjective Interval history: Patient is a 39-year-old male with a past medical history of diabetes mellitus type 2 on insulin and cigarette use who was admitted on 10/27/2024 for acute osteomyelitits of the right foot. No overnight events reported. Patient denied right foot pain near site of incision and drainage. Patient denied erythema. Denied overnight pyrexia or chills. Patient denied chest pain or dyspnea. 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 No swelling appreciated. Possible discharge tomorrow-->home w/ home health for PICC line. Exam Vital Signs Temp Pulse Resp BP Pulse Ox O2 Del Method 98.6 F 98 17 140/95 H 98 Room Air 11/01/24 15:56 11/01/24 15:56 11/01/24 15:56 11/01/24 15:56 11/01/24 15:56 11/01/24 15:56 Narrative Exam General Appearance: Alert & Oriented X3, well-nourished male who is lying in bed in no acute distress. No swelling or erythema noted on bilateral wrists, no erthema noted. HEENT: Skull symmetrical and atraumatic. Conjunctivae pin and moist. Pupils equal, round, reactive to light and accommodation (PERRL). External ear without lesion or discharge. Straight, nares patient, mucosa pink, no discharge. No thyroid nodule appreciated. Cardio: Normal Rate and Rhythm with S1 and S2 heart sounds. No murmurs or extra heart sounds auscultated. No bruits on carotid auscultation. No peripheral edema or cyanosis. Lungs: Symmetric with good expansion. Chest and back non-tender. Breath sounds vesicular without crackles, wheezing or rhonchi Abdomen: Non-tender, Non-distended, Normal Reactive Bowel Sounds Neuro: Alert, cooperative, oriented to person, place, and time. Speech clear. CN grossly intact. Upper motor strength 5/5 and Lower motor strength 5/5. Sensation intact. Objective Labs 11/02/24 04:48 11/02/24 04:48 Labs: Laboratory Results - last 24 hr 11/01/24 06:04 WBC 14.5 H D RBC 3.80 L Hgb 10.7 L Hct 31.4 L MCV 83 MCH 28.2 MCHC 34.1 RDW Std Deviation 36.8 Plt Count 252 Neut % (Auto) 82 H Lymph % (Auto) 10 [place] % (Auto) 7 Eos % (Auto) 0 Baso % (Auto) 0 Neut # (Auto) 11.9 H Lymph # (Auto) 1.4 [place] # (Auto) 1.1 H Eos # (Auto) 0.0 Baso # (Auto) 0.0 Immature Gran # (Auto) 0.09 H Absolute Nucleated RBC 0.00 Immature Gran % 1 H Nucleated RBC % 0 Sodium 130 L Potassium 3.6 Chloride 99 Carbon Dioxide 27.1 Anion Gap 4 L BUN 13 Creatinine 0.7 Estim Creat Clear Calc 157.1 eGFR > 60 BUN/Creatinine Ratio 19 Glucose 118 H Calculated Osmolality 261 L Calcium 8.8 Corrected Calcium 9.0 Magnesium 2.1 Total Bilirubin 0.7 AST 11 ALT 15 Alkaline Phosphatase 103 Total Protein 7.1 Albumin 3.8 Globulin 3.3 Albumin/Globulin Ratio 1.2 Quality Measures Quality Measures none Assessment & Plan Assessment Current Active Medications: Generic Name Dose Route Start Last Admin Trade Name Freq PRN Reason Stop Dose Admin Acetaminophen 650 mg 10/27/24 17:19 10/30/24 17:41 Acetaminophen 325 Mg Tablet PO 11/26/24 17:18 650 mg Q6H PRN Administration Mild Pain 1-3 or Fever >100.4 Hydrocodone Bitart/Acetaminophen 1 tab 10/27/24 17:19 11/01/24 11:10 Hydrocodone/Apap 5/325 Tablet PO 11/01/24 17:18 1 tab Q4HR PRN Administration PAIN SCALE 4-6 (Moderate Ascorbic Acid 250 mg 11/01/24 15:00 11/01/24 14:59 Ascorbic Acid 250 Mg Tablet PO 12/01/24 14:59 250 mg BID MORAIMA Administration Atorvastatin Calcium 40 mg 10/29/24 21:00 10/31/24 20:58 Atorvastatin Calcium 20 Mg Tablet PO 11/28/24 20:59 40 mg HS MORAIMA Administration Dextrose 25 ml 10/27/24 17:23 Dextrose 50%-Water Inj 50 Ml Syringe IV 11/26/24 17:22 Q15MIN PRN BG 50-70 responsive npo pt Dextrose 50 ml 10/27/24 17:23 Dextrose 50%-Water Inj 50 Ml Syringe IV 11/26/24 17:22 Q15MIN PRN BG <50 OR BG <70 & pt unresponsive Diclofenac Sodium 75 mg 11/01/24 14:31 Diclofenac Sod Ec 75 Mg Tabec PO 12/01/24 17:29 TIDWM PRN wrist pain Doxycycline Hyclate 100 mg 10/30/24 08:00 11/01/24 08:48 Doxycycline 100 Mg Tablet PO 11/06/24 07:59 100 mg BID MORAIMA Administration Glucagon 1 mg 10/27/24 17:23 Glucagon Inj 1 Mg Vial IM Q15MIN PRN BG <70, and no IV access Heparin Sodium (Porcine) 5,000 unit 10/27/24 18:15 10/30/24 05:21 Heparin Sod Inj 5000 Unit/Ml Vial SC 11/10/24 18:14 5,000 unit Q12H MORAIMA Administration Hydralazine HCl 10 mg 10/28/24 00:21 10/29/24 20:24 Hydralazine Inj 20 Mg/Ml Vial IV 11/27/24 00:20 10 mg Q6HR PRN Administration systolic >170 Piperacillin/Tazobactam/Dextrose 50 mls @ 12.5 mls/hr 10/31/24 14:00 11/01/24 14:59 Zosyn IV 12/20/24 13:59 12.5 mls/hr Q8HR MORAIMA Administration Protocol Insulin Glargine 20 unit 10/30/24 21:00 10/31/24 20:53 Insulin Glargine (Lantus) 5 Unit/0.05 Ml (Per 5 Units) SC 11/29/24 20:59 20 unit HS MORAIMA Administration Insulin Human Lispro 0 unit 10/28/24 11:30 11/01/24 11:39 Insulin Lispro (Admelog) 1 Unit/0.01 Ml Unit SC 11/27/24 11:29 Not Given [facility] Protocol Insulin Human Lispro 3 unit 10/30/24 12:00 11/01/24 11:41 Insulin Lispro (Admelog) 1 Unit/0.01 Ml Unit SC 11/29/24 11:59 3 unit TIDWM MORAIMA Administration Morphine Sulfate 1 mg 10/27/24 18:02 Morphine Sulf Inj 10 Mg/Ml Vial IVP 11/01/24 18:01 Q4HR PRN PAIN SCALE 7-10(Mod-Sev Nicotine 7 mg 10/27/24 17:45 11/01/24 08:50 Nicotine Patch 7 Mg/24 Hr Patch.Td24 TOP 11/26/24 17:44 Not Given QDAY MORAIMA Zinc Sulfate 220 mg 11/01/24 15:00 11/01/24 14:59 Zinc Sulfate 220 Mg Capsule PO 12/01/24 14:59 220 mg QDAY MORAIMA Administration Plan Patient is a 39-year-old male with a past medical history of diabetes mellitus type 2 on insulin and cigarette use who was admitted on 10/27/2024 for acute osteomyelitits of the right foot. #Sepsis, secondary to lower extremity, resolved. #R. lower extremity digits (2-4 digits) s/p I&D 10/29/2024 #Osteomyelitis #Cellulits, Soft Tissue Infection #Diabetic Foot Secondary to trauma and complicated by non-adherance to medication and poor glycemic control. Elevated A1c during previous hospital visit 10/28/2024-Ankle Brachial Index within upper normal limit at 1.2, which is less than 1.3 and flow illustrated triphasic, unlikely PID. Given diabetes history, this is likely decreasing healing ability. (10/29/2024): I& D on (10/29/2024) of necrotic tissue of the 2th-4th toes from cellulitis-->progressing to osteomyelitis; Dr. Hill -ID recommendations-IV Antibiotics rocephin 2 g per day IV & Doxycyline 100 mg BID PO for six week from October 27-->December 10, 2024 (10/30/2024) Sepsis alert called secondary to tachycardia, elevated WBC, and known source of infection. Lactic acid 1.1, Procalcitonin 0.79, and WBC 23.7. Pending new blood and urine culture. (11/01/2024) Sepsis resolved, currently only R. lower extremity osteomyelitis and soft tissue infection. Blood Culture negative after 48 hours-->D/C zosyn tomorrow and send home with Rocephin 2 g per day & Doxycline 100 mg BID for six weeks-->end date December 10, 2024. WBC improved, 14.5. Diagnostics: Foot MRI (10/29/2024): Osteomyelitis proximal middle and distal phalanges fourth digit; Osteomyelitis ungual tuft tips distal phalanges second and third digits; Fluid-filled soft tissue abscess both dorsal to the third and fourth digits and plantar to the fourth digit Foot X-ray (10/27/2024): Fracture at the base of the proximal phalanx fourth digit. Prominent osteomyelitis proximal middle and distal phalanges fourth digit Also osteomyelitis ungual tuft tip 6 distal phalanges third and second digits ankle/brachial index:Right ankle/brachial index is 1.2., Triphasic flow in tested artieries. NO Significant obstructive arterial disease. Consider CTA as outpatinet Blood Culture (10/30/2024): Negative after 48 hours. Urine Culture (10/30/2024): Negative Blood Culture(10/27/2024): negative 48 hours Micro Wound & Tissue (10/27/2024): Collected prematurely, added instructions for during procedure.-->mixed julius noted Plan: -Tetanus shot 10/28/2024 - PICC line placed on 10/30/24 - Ceftriaxone 2 mg IV QDay (10/28/2024--10/30/24), Escalated antibiotics to zosyn given persistent tachycardia and fevers -DC Zosyn on 11/02/2024-->Resume & Discharge patient on Ceftriaxone 2 mg QDay & Doxy PO - continue with wound care #Diabetes Mellitus Type 2, non-insulin dependent. Uncontrolled Etiology: Diagnosed with diabetes mellitus type 2 in 2022, currently Insulin dependent 10 units Lantus HS with Metformin. -ASCVD: High-intensity statin recommended because of know diabetes & 10 year risk factor of [place] is 16.8% in next 10 years. Diagnosis: Lipid Panel (10/28/2024): Triglycerides 106, Cholesterol 169, LDL 120, HDL 28 L A1c (09/30/2024): 9.7-->A1c (10/28/2024) 9.7 Plan: -Continue wtih Lantus 18, Lispro 3 units with meals and sliding scale -Atorvastatin 40 mg HS -Fasting glucose goal of 140-180 -Diabetic Education -Dietitian Referral #Chronic tobacco use 2pack year history (10 years of smoking cigarettes about 1 pack per week). Patient declined but order placed. Plan -Nicotine Patch Moraima. -counselled patient on cessation of tobacco use Health Maintenance: Disp: Pt is currently admitted to floors for further management of osteomyelitis, likely DC tomorrow on antibiotics. FEN: low carb consisten low. DVT: Heparin Sub Q Code: Full code - The patient's plan was discussed with attending Dr. Almendarez and senior residents Shereen Graves MD PGY1 Internal Medicine Attending Provider Attestation/Addendum IDanay DO, attest that I was physically present for the [place] portions of the service and evaluated the patient with the resident and I reviewed and discussed the case with the resident and agree with the resident's findings and plans of care as documented above Patient seen and evaluated this AM. He states he is feeling much improved today. WBCS downtrending and afebrile overnight. Patient was likely dehydrated. Will de-escalate abx if Bcx are negative x 48hrs. Will be final this afternoon. Patient complaining of wrist pain which has been splinted. 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 Will place topical nsaid as well. Patient can likely be discharged within next 24-48h if home health is arranged.
[2024-11-01] MEDS: INSULIN LISPRO (AdmeLOG) 1 UNIT/0.01 ML UNIT SC (16:34)
[2024-11-01] MEDS: ATORVASTATIN CALCIUM 20 MG TABLET 40 MG PO (21:22)
[2024-11-01] MEDS: INSULIN GLARGINE (Lantus) 5 UNIT/0.05 ML (PER 5 UNITS) 20 UNIT SC (21:22)
[2024-11-02] VITALS (9 sets, daily range): BP systolic 116–161; BP diastolic 80–113; PULSE 88–119; RESP 16–18; TEMP 36.2–38.2; O2SAT 94–98
[2024-11-02] MEDS: HYDROcodone/APAP 5/325 TABLET 1 TAB PO ×3 (03:21→19:35)
[2024-11-02] MEDS: PIPER/TAZO 3.375 GM 50 ML IV (05:25)
[2024-11-02] MEDS: HEPARIN SOD INJ 5000 UNIT/ML VIAL SC ×2 (05:25→17:14)
[2024-11-02 05:51] LABS: Basophils % (Auto) 0 % (0-2.5); Eosinophils % (Auto) 0 % (0-10); Hematocrit 31.3 % (41.0-53.0); Hemoglobin 10.8 g/dL (13.5-16.0); Immature Granulocytes % (Auto) 1 % (0-0); Immature Granulocytes Auto 0.05 Thou/mm3 (0.00-0.00); Lymphocytes # (Auto) 1.1 Thou/mm3 (1.0-4.8); Lymphocytes % (Auto) 10 % (10-50); Mean Corpuscular HGB Conc 34.5 g/dl (31.0-37.0); Mean Corpuscular Volume 81 fL (80-100); Monocytes # (Auto) 1.1 Thou/mm3 (0.0-0.8); Monocytes % (Auto) 10 % (0-12); Neutrophils # (Auto) 8.8 Thou/mm3 (1.8-7.7); Neutrophils % (Auto) 79 % (37-80); Nucleated Red Blood Cell % 0 /100 WBC (0); Platelet Count 264 Thou/mm3 (140-440); RDW Standard Deviation 36.2 fL (35.1-43.9); Red Blood Count 3.86 Miln/mm3 (4.50-5.90); White Blood Count 11.1 Thou/mm3 (3.8-10.6)
[2024-11-02 06:17] LABS: Alanine Aminotransferase 47 U/L (10-49); Albumin, Serum 3.9 gm/dL (3.5-5.0); Albumin/Globulin Ratio 1.2 (1.2-2.2); Alkaline Phosphatase 130 U/L (46-116); Anion Gap 7 (7-16); Aspartate Amino Transferase 48 U/L (0-34); BUN/Creatinine Ratio 17 Ratio (12-20); Bilirubin,Total 0.6 mg/dL (0.3-1.2); Blood Urea Nitrogen 12 mg/dL (9-23); Calcium 8.9 mg/dL (8.3-10.6); Carbon Dioxide 27.5 mMol/L (20.0-31.0); Chloride 97 mMol/L (98-107); Creatinine (Component) 0.7 mg/dL (0.6-1.3); Estimated Creatinine Clearance 157.1 mL/min (>60); Globulin 3.3 gm/dL (2.3-3.5); Glucose 106 mg/dL (74-106); Magnesium 2.1 mg/dL (1.6-2.6); Osmolality,Calculated 262 (275-295); Phosphorous 3.3 mg/dL (2.4-5.1); Potassium 3.6 mMol/L (3.4-5.1); Sodium 131 mMol/L (136-145); Total Protein 7.2 gm/dL (5.7-8.2); eGFR > 60 See Note
--- NOTE | 2024-11-02 09:21 | ESPR_ITS ---
<Statement entered by Dejon Regan MD - 11/02/24 13:26> Documentation for date of: 11/02/24 Subjective Subjective Interval history: Patient was seen and examined at the bedside. Patient reported that he had mild right shoulder pain and his wrist pain has been improving. We ordered lidocaine patch for improvement in the shoulder pain. Currently we are holding discharge as patient is awaiting for home health orders to be set up. capacity manager is working on that. Will decrease his Lantus to 15 units given blood sugars currently tightly managed. Changed to Zosyn to ceftriaxone 2 g once daily as blood cultures showed no growth in 48 hours. Labs were unremarkable. All labs and orders were reviewed. Exam Vital Signs Temp Pulse Resp BP Pulse Ox O2 Del Method 97.1 F 90 17 127/87 H 97 Room Air 11/02/24 07:46 11/02/24 07:46 11/02/24 07:46 11/02/24 07:46 11/02/24 07:46 11/02/24 07:46 Narrative Exam General Appearance: Alert & Oriented X3, well-nourished male who is lying in bed in no acute distress. No swelling or erythema noted on bilateral wrists, no erthema noted. HEENT: Skull symmetrical and atraumatic. Conjunctivae pin and moist. Pupils equal, round, reactive to light and accommodation (PERRL). External ear without lesion or discharge. Straight, nares patient, mucosa pink, no discharge. No thyroid nodule appreciated. Cardio: Normal Rate and Rhythm with S1 and S2 heart sounds. No murmurs or extra heart sounds auscultated. No bruits on carotid auscultation. No peripheral edema or cyanosis. Lungs: Symmetric with good expansion. Chest and back non-tender. Breath sounds vesicular without crackles, wheezing or rhonchi Abdomen: Non-tender, Non-distended, Normal Reactive Bowel Sounds Neuro: Alert, cooperative, oriented to person, place, and time. Speech clear. CN grossly intact. Upper motor strength 5/5 and Lower motor strength 5/5. Sensation intact. Objective Labs 11/02/24 04:48 11/02/24 04:48 Labs: Laboratory Results - last 24 hr 11/02/24 04:48 WBC 11.1 H RBC 3.86 L Hgb 10.8 L Hct 31.3 L MCV 81 MCH 28.0 MCHC 34.5 RDW Std Deviation 36.2 Plt Count 264 Neut % (Auto) 79 Lymph % (Auto) 10 [place] % (Auto) 10 Eos % (Auto) 0 Baso % (Auto) 0 Neut # (Auto) 8.8 H Lymph # (Auto) 1.1 [place] # (Auto) 1.1 H Eos # (Auto) 0.0 Baso # (Auto) 0.0 Immature Gran # (Auto) 0.05 H Absolute Nucleated RBC 0.00 Immature Gran % 1 H Nucleated RBC % 0 Sodium 131 L Potassium 3.6 Chloride 97 L Carbon Dioxide 27.5 Anion Gap 7 BUN 12 Creatinine 0.7 Estim Creat Clear Calc 157.1 eGFR > 60 BUN/Creatinine Ratio 17 Glucose 106 Calculated Osmolality 262 L Calcium 8.9 Corrected Calcium 9.0 Phosphorus 3.3 Magnesium 2.1 Total Bilirubin 0.6 AST 48 H ALT 47 Alkaline Phosphatase 130 H D Total Protein 7.2 Albumin 3.9 Globulin 3.3 Albumin/Globulin Ratio 1.2 Quality Measures Quality Measures VTE prophylaxis Assessment & Plan Assessment Current Active Medications: Generic Name Dose Route Start Last Admin Trade Name Freq PRN Reason Stop Dose Admin Acetaminophen 650 mg 10/27/24 17:19 10/30/24 17:41 Acetaminophen 325 Mg Tablet PO 11/26/24 17:18 650 mg Q6H PRN Administration Mild Pain 1-3 or Fever >100.4 Hydrocodone Bitart/Acetaminophen 1 tab 11/01/24 17:25 11/02/24 03:21 Hydrocodone/Apap 5/325 Tablet PO 11/06/24 17:24 1 tab Q6HR PRN Administration PAIN SCALE 4-6 (Moderate Ascorbic Acid 250 mg 11/01/24 15:00 11/01/24 14:59 Ascorbic Acid 250 Mg Tablet PO 12/01/24 14:59 250 mg BID MORAIMA Administration Atorvastatin Calcium 40 mg 10/29/24 21:00 11/01/24 21:22 Atorvastatin Calcium 20 Mg Tablet PO 11/28/24 20:59 40 mg HS MORAIMA Administration Dextrose 25 ml 10/27/24 17:23 Dextrose 50%-Water Inj 50 Ml Syringe IV 11/26/24 17:22 Q15MIN PRN BG 50-70 responsive npo pt Dextrose 50 ml 10/27/24 17:23 Dextrose 50%-Water Inj 50 Ml Syringe IV 11/26/24 17:22 Q15MIN PRN BG <50 OR BG <70 & pt unresponsive Diclofenac Sodium 75 mg 11/01/24 14:31 Diclofenac Sod Ec 75 Mg Tabec PO 12/01/24 17:29 TIDWM PRN wrist pain Doxycycline Hyclate 100 mg 10/30/24 08:00 11/01/24 21:22 Doxycycline 100 Mg Tablet PO 11/06/24 07:59 100 mg BID MORAIMA Administration Glucagon 1 mg 10/27/24 17:23 Glucagon Inj 1 Mg Vial IM Q15MIN PRN BG <70, and no IV access Heparin Sodium (Porcine) 5,000 unit 10/27/24 18:15 11/02/24 05:25 Heparin Sod Inj 5000 Unit/Ml Vial SC 11/10/24 18:14 5,000 unit Q12H MORAIMA Administration Hydralazine HCl 10 mg 10/28/24 00:21 10/29/24 20:24 Hydralazine Inj 20 Mg/Ml Vial IV 11/27/24 00:20 10 mg Q6HR PRN Administration systolic >170 Piperacillin/Tazobactam/Dextrose 50 mls @ 12.5 mls/hr 10/31/24 14:00 11/02/24 05:25 Zosyn IV 11/07/24 13:59 12.5 mls/hr Q8HR [facility] Administration Protocol Insulin Glargine 15 unit 11/02/24 21:00 Insulin Glargine (Lantus) 5 Unit/0.05 Ml (Per 5 Units) SC 12/02/24 20:59 [facility] Insulin Human Lispro 0 unit 10/28/24 11:30 11/02/24 07:23 Insulin Lispro (Admelog) 1 Unit/0.01 Ml Unit SC 11/27/24 11:29 Not Given AC [facility] Protocol Insulin Human Lispro 3 unit 10/30/24 12:00 11/02/24 07:23 Insulin Lispro (Admelog) 1 Unit/0.01 Ml Unit SC 11/29/24 11:59 Not Given TIDWM [facility] Nicotine 7 mg 10/27/24 17:45 11/01/24 08:50 Nicotine Patch 7 Mg/24 Hr Patch.Td24 TOP 11/26/24 17:44 Not Given QDAY [facility] Zinc Sulfate 220 mg 11/01/24 15:00 11/01/24 14:59 Zinc Sulfate 220 Mg Capsule PO 12/01/24 14:59 220 mg QDAY MORAIMA Administration Plan This patient is a 39-year-old male with a past medical history of diabetes mellitus type 2 on insulin and cigarette use who was admitted on 10/27/2024 for acute osteomyelitits of the right foot. #Sepsis, secondary to lower extremity, resolved. #R. lower extremity digits (2-4 digits) s/p I&D 10/29/2024 #Osteomyelitis #Cellulits, Soft Tissue Infection #Diabetic Foot Secondary to trauma and complicated by non-adherance to medication and poor glycemic control. Elevated A1c during previous hospital visit Foot MRI (10/29/2024): Osteomyelitis proximal middle and distal phalanges fourth digit; Osteomyelitis ungual tuft tips distal phalanges second and third digits; Fluid-filled soft tissue abscess both dorsal to the third and fourth digits and plantar to the fourth digit Foot X-ray (10/27/2024): Fracture at the base of the proximal phalanx fourth digit. Prominent osteomyelitis proximal middle and distal phalanges fourth digit Also osteomyelitis ungual tuft tip 6 distal phalanges third and second digits ankle/brachial index:Right ankle/brachial index is 1.2., Triphasic flow in tested artieries. NO Significant obstructive arterial disease. Consider CTA as outpatinet Blood Culture (10/30/2024): Negative after 48 hours. Urine Culture (10/30/2024): Negative Blood Culture(10/27/2024): negative 48 hours Micro Wound & Tissue (10/27/2024): Collected prematurely, added instructions for during procedure.-->mixed julius noted Plan: -Pending home health services -Tetanus shot 10/28/2024 - PICC line placed on 10/30/24 - Ceftriaxone 2 mg IV QDay (10/28/2024--10/30/24), Escalated antibiotics to zosyn given persistent tachycardia and fevers -DC Zosyn on 11/02/2024-->Resume & Discharge patient on Ceftriaxone 2 mg QDay & Doxy PO - continue with wound care #Diabetes Mellitus Type 2, non-insulin dependent. Uncontrolled Etiology: Diagnosed with diabetes mellitus type 2 in 2022, currently Insulin dependent 10 units Lantus HS with Metformin. -ASCVD: High-intensity statin recommended because of know diabetes & 10 year risk factor of [place] is 16.8% in next 10 years. Diagnosis: Lipid Panel (10/28/2024): Triglycerides 106, Cholesterol 169, LDL 120, HDL 28 L A1c (09/30/2024): 9.7-->A1c (10/28/2024) 9.7 Plan: -Decreased Lantus 15 units daily -Continue Lispro 3 units with meals and sliding scale -Atorvastatin 40 mg HS -Fasting glucose goal of 140-180 -Diabetic Education -Dietitian Referral #Chronic tobacco use ?2pack year history (10 years of smoking cigarettes about 1 pack per week). Patient declined but order placed. Plan -Nicotine Patch Moraima. -counselled patient on cessation of tobacco use # Right shoulder musculoskeletal pain Plan: ? Lidocaine patch as needed for pain management Health Maintenance: FEN: low carb consisten low. DVT: Heparin Sub Q Code: Full code Disp: Pt is currently admitted to floors for further management of osteomyelitis, pending home and services. Already received PICC line for continuation of IV antibiotics for total 6 weeks. Patient was seen and discussed with attending physician, Dr. Tanesha Regan MD, PGY 2 Attending Provider Attestation/Addendum I, Danay Almendarez, DO, attest that I was physically present for the [place] portions of the service and evaluated the patient with the resident and I reviewed and discussed the case with the resident and agree with the resident's findings and plans of care as documented above Patient seen and evaluated this a.m. He states that he has been having some shoulder pain that had resolved after receiving lidocaine patch 2 days ago. He also reports improvement of his wrist pain after receiving topical NSAIDs. Will de-escalate antibiotics from Zosyn to Rocephin at this time. We are currently pending arrangements for home health IV antibiotics. Anticipate discharge within the next 24 to 48 hours
[2024-11-02] MEDS: DOXYCYCLINE 100 MG TABLET PO ×2 (09:36→21:21)
[2024-11-02] MEDS: ASCORBIC ACID 250 MG TABLET PO ×2 (09:36→21:21)
[2024-11-02] MEDS: ZINC SULFATE 220 MG CAPSULE PO (09:36)
[2024-11-02] MEDS: DICLOFENAC 1% TOP GEL 100 GM TUBE TOP ×2 (11:06→22:24)
[2024-11-02] MEDS: INSULIN LISPRO (AdmeLOG) 1 UNIT/0.01 ML UNIT 3 UNIT SC ×2 (11:44→16:18)
[2024-11-02] MEDS: INSULIN LISPRO (AdmeLOG) 1 UNIT/0.01 ML UNIT SC ×2 (11:45→16:18)
--- NOTE | 2024-11-02 12:20 | PC.CM ---
Still no accepting HH agency. 10 HH agencies declined the pt. Asked [facility] if they can accept the pt.
[2024-11-02] MEDS: LIDOCAINE 5% 1 PATCH TOP (13:02)
--- NOTE | 2024-11-02 16:13 | PC.SS ---
Rounding: IV ABX
[2024-11-02] MEDS: INSULIN GLARGINE (Lantus) 5 UNIT/0.05 ML (PER 5 UNITS) 15 UNIT SC (21:21)
[2024-11-02] MEDS: ATORVASTATIN CALCIUM 20 MG TABLET 40 MG PO (21:21)
[2024-11-03] VITALS (9 sets, daily range): BP systolic 110–156; BP diastolic 81–104; PULSE 90–114; RESP 17–20; TEMP 36.6–39.1; O2SAT 92–97; BMI 28.5
[2024-11-03] MEDS: DICLOFENAC 1% TOP GEL 100 GM TUBE TOP (05:50)
[2024-11-03] MEDS: HEPARIN SOD INJ 5000 UNIT/ML VIAL SC ×2 (05:50→21:11)
[2024-11-03] MEDS: POTASSIUM CHLORIDE 10% 20 MEQ/15 ML UDC 40 MEQ PO (07:43)
[2024-11-03] MEDS: ACETAMINOPHEN 325 MG TABLET 650 MG PO (07:44)
[2024-11-03] MEDS: INSULIN LISPRO (AdmeLOG) 1 UNIT/0.01 ML UNIT SC ×3 (07:44→17:25)
[2024-11-03] MEDS: INSULIN LISPRO (AdmeLOG) 1 UNIT/0.01 ML UNIT 3 UNIT SC ×3 (07:45→17:26)
--- NOTE | 2024-11-03 09:53 | PC.CM ---
The infusion company [employer] has accepted patient. [facility] is reviewing at this time. I am waiting to see if they can give us a start of care date.
[2024-11-03] MEDS: cefTRIAXone 2 GM in SODIUM CHLORIDE 0.9% (P) 50 ML IV (10:19)
[2024-11-03] MEDS: ASCORBIC ACID 250 MG TABLET PO ×2 (10:20→21:11)
[2024-11-03] MEDS: ZINC SULFATE 220 MG CAPSULE PO (10:20)
[2024-11-03] MEDS: Lisinopril 2.5 MG TABLET 5 MG PO (10:20)
[2024-11-03] MEDS: HYDROcodone/APAP 5/325 TABLET 1 TAB PO ×2 (10:20→21:21)
[2024-11-03] MEDS: DOXYCYCLINE 100 MG TABLET PO ×2 (10:20→21:11)
--- NOTE | 2024-11-03 11:35 | PC.SS ---
Follow up note: Pt is requiring IV Rocephin 2grm 1 X day until November 20, 2024.
--- NOTE | 2024-11-03 15:05 | ESPR_ITS ---
<Statement entered by Dejon Regan MD - 11/03/24 15:37> She was seen and examined at the bedside. Patient was doing fine and we are currently waiting on home health services. Patient has been feeling better in terms of his wrist pain. Will likely wait on home health services and discharge him once they are ready.. All labs and orders were reviewed. I saw and examined the patient, and I agree with current management stated by Dr Star MD,PGY1. Plan of care was discussed with the attending physician and resident physician. Disclaimer: Despite multiple revisions, due to the dictation software being used, the document bellow may not be free of grammatical errors including phonetic/typographic errors. However, this does not deter from our commitment to providing health care in the patient's best interest in mind. Dr. Shereen MD, PGY 2 Documentation for date of: 11/03/24 Subjective Subjective Interval history: Patient is a 39-year-old male with a past medical history of diabetes mellitus type 2 on insulin and cigarette use who was admitted on 10/27/2024 for acute osteomyelitits of the right foot s/p I&D No overnight events reported for patient. Patient denied any pyrexia or chills. No chest pain. No dyspnea. No right lower extremity discomfort or pain secondary to I&D. No erythema noted near dressing site. Exam Vital Signs Temp Pulse Resp BP Pulse Ox O2 Del Method 98.4 F 92 17 110/81 97 Room Air 11/03/24 12:00 11/03/24 12:00 11/03/24 12:00 11/03/24 12:00 11/03/24 12:00 11/03/24 12:00 Narrative Exam General Appearance: Alert & Oriented X3, well-nourished male who is lying in bed in no acute distress. No erythema noted surrounding I&D site. HEENT: Skull symmetrical and atraumatic. Conjunctivae pin and moist. Pupils equal, round, reactive to light and accommodation (PERRL). External ear without lesion or discharge. Straight, nares patient, mucosa pink, no discharge. No thyroid nodule appreciated. Cardio: Normal Rate and Rhythm with S1 and S2 heart sounds. No murmurs or extra heart sounds auscultated. No bruits on carotid auscultation. No peripheral edema or cyanosis. Lungs: Symmetric with good expansion. Chest and back non-tender. Breath sounds vesicular without crackles, wheezing or rhonchi Abdomen: Non-tender, Non-distended, Normal Reactive Bowel Sounds Neuro: Alert, cooperative, oriented to person, place, and time. Speech clear. CN grossly intact. Upper motor strength 5/5 and Lower motor strength 5/5. Sensation intact. Objective Labs 11/02/24 04:48 11/02/24 04:48 Quality Measures Quality Measures VTE prophylaxis Assessment & Plan Assessment Current Active Medications: Generic Name Dose Route Start Last Admin Trade Name Freq PRN Reason Stop Dose Admin Acetaminophen 650 mg 10/27/24 17:19 11/03/24 07:44 Acetaminophen 325 Mg Tablet PO 11/26/24 17:18 650 mg Q6H PRN Administration Mild Pain 1-3 or Fever >100.4 Hydrocodone Bitart/Acetaminophen 1 tab 11/01/24 17:25 11/03/24 10:20 Hydrocodone/Apap 5/325 Tablet PO 11/06/24 17:24 1 tab Q6HR PRN Administration PAIN SCALE 4-6 (Moderate Ascorbic Acid 250 mg 11/01/24 15:00 11/03/24 10:20 Ascorbic Acid 250 Mg Tablet PO 12/01/24 14:59 250 mg BID MORAIMA Administration Atorvastatin Calcium 40 mg 10/29/24 21:00 11/02/24 21:21 Atorvastatin Calcium 20 Mg Tablet PO 11/28/24 20:59 40 mg HS MORAIMA Administration Dextrose 25 ml 10/27/24 17:23 Dextrose 50%-Water Inj 50 Ml Syringe IV 11/26/24 17:22 Q15MIN PRN BG 50-70 responsive npo pt Dextrose 50 ml 10/27/24 17:23 Dextrose 50%-Water Inj 50 Ml Syringe IV 11/26/24 17:22 Q15MIN PRN BG <50 OR BG <70 & pt unresponsive Diclofenac Sodium 2 gm 11/02/24 10:30 11/03/24 05:50 Diclofenac 1% Top Gel 100 Gm Tube TOP 12/02/24 11:59 2 gm QID PRN Administration joint pain Doxycycline Hyclate 100 mg 10/30/24 08:00 11/03/24 10:20 Doxycycline 100 Mg Tablet PO 11/06/24 07:59 100 mg BID MORAIMA Administration Glucagon 1 mg 10/27/24 17:23 Glucagon Inj 1 Mg Vial IM Q15MIN PRN BG <70, and no IV access Heparin Sodium (Porcine) 5,000 unit 10/27/24 18:15 11/03/24 05:50 Heparin Sod Inj 5000 Unit/Ml Vial SC 11/10/24 18:14 5,000 unit Q12H [facility] Administration Hydralazine HCl 10 mg 10/28/24 00:21 10/29/24 20:24 Hydralazine Inj 20 Mg/Ml Vial IV 11/27/24 00:20 10 mg Q6HR PRN Administration systolic >170 Ceftriaxone Sodium 2 gm/ 50 mls @ 100 mls/hr 11/03/24 09:00 11/03/24 10:19 Sodium Chloride IV 11/10/24 08:59 100 mls/hr QDAY [facility] Administration Insulin Glargine 15 unit 11/02/24 21:00 11/02/24 21:21 Insulin Glargine (Lantus) 5 Unit/0.05 Ml (Per 5 Units) SC 12/02/24 20:59 15 unit HS [facility] Administration Insulin Human Lispro 0 unit 10/28/24 11:30 11/03/24 11:54 Insulin Lispro (Admelog) 1 Unit/0.01 Ml Unit SC 11/27/24 11:29 2 unit AC [facility] Administration Protocol Insulin Human Lispro 3 unit 10/30/24 12:00 11/03/24 11:55 Insulin Lispro (Admelog) 1 Unit/0.01 Ml Unit SC 11/29/24 11:59 3 unit TIDWM [facility] Administration Lidocaine 1 patch 11/02/24 12:06 11/02/24 13:02 Lidocaine 5% 1 Patch TOP 12/02/24 12:05 1 patch DAILY PRN Administration SHOULDER PAIN Lisinopril 5 mg 11/03/24 09:00 11/03/24 10:20 Lisinopril 2.5 Mg Tablet PO 12/03/24 08:59 5 mg QDAY MORAIMA Administration Nicotine 7 mg 10/27/24 17:45 11/03/24 10:21 Nicotine Patch 7 Mg/24 Hr Patch.Td24 TOP 11/26/24 17:44 Not Given QDAY [facility] Zinc Sulfate 220 mg 11/01/24 15:00 11/03/24 10:20 Zinc Sulfate 220 Mg Capsule PO 12/01/24 14:59 220 mg QDAY [facility] Administration Plan This patient is a 39-year-old male with a past medical history of diabetes mellitus type 2 on insulin and cigarette use who was admitted on 10/27/2024 for acute osteomyelitits of the right foot s/p I&D (10/29/2024). #R. lower extremity digits (2-4 digits) s/p I&D 10/29/2024 #Osteomyelitis #Cellulits, Soft Tissue Infection #Diabetic Foot #Sepsis, secondary to lower extremity, resolved. Secondary to trauma and complicated by non-adherance to medication and poor glycemic control. Elevated A1c during previous hospital visit Diagnostics: Foot MRI (10/29/2024): Osteomyelitis proximal middle and distal phalanges fourth digit; Osteomyelitis ungual tuft tips distal phalanges second and third digits; Fluid-filled soft tissue abscess both dorsal to the third and fourth digits and plantar to the fourth digit Foot X-ray (10/27/2024): Fracture at the base of the proximal phalanx fourth digit. Prominent osteomyelitis proximal middle and distal phalanges fourth digit Also osteomyelitis ungual tuft tip 6 distal phalanges third and second digits ankle/brachial index:Right ankle/brachial index is 1.2., Triphasic flow in tested artieries. NO Significant obstructive arterial disease. Consider CTA as outpatinet Blood Culture (10/30/2024): Negative after 48 hours. Urine Culture (10/30/2024): Negative Blood Culture(10/27/2024): negative 48 hours Plan: -Pending home health services -Tetanus shot 10/28/2024 - PICC line placed on 10/30/24 - Ceftriaxone 2 mg IV QDay (10/28/2024--10/30/24), Escalated antibiotics to zosyn given persistent tachycardia and fevers -DC Zosyn on 11/02/2024-->Resume & Discharge patient on Ceftriaxone 2 mg QDay & Doxy PO - continue with wound care #Diabetes Mellitus Type 2, non-insulin dependent. Uncontrolled Etiology: Diagnosed with diabetes mellitus type 2 in 2022, currently Insulin dependent 10 units Lantus HS with Metformin. -ASCVD: High-intensity statin recommended because of know diabetes & 10 year risk factor of [place] is 16.8% in next 10 years. Diagnosis: Lipid Panel (10/28/2024): Triglycerides 106, Cholesterol 169, LDL 120, HDL 28 L A1c (09/30/2024): 9.7-->A1c (10/28/2024) 9.7 Plan: -Decreased Lantus 15 units daily -Continue Lispro 3 units with meals and sliding scale -Atorvastatin 40 mg HS -Fasting glucose goal of 140-180 -Diabetic Education -Dietitian Referral #Chronic tobacco use ?2pack year history (10 years of smoking cigarettes about 1 pack per week). Patient declined but order placed. Plan -Nicotine Patch Moraima. -counselled patient on cessation of tobacco use # Right shoulder musculoskeletal pain Plan: ? Lidocaine patch as needed for pain management Health Maintenance: FEN: low carb consisten low. DVT: Heparin Sub Q Code: Full code Disp: Pt is currently admitted to floors for further management of osteomyelitis, pending home health, with antibiotics for 6 weeks-December 10. - The patient's plan was discussed with attending Dr. Almendarez and senior residents Dr. Shereen Graves MD PGY1 Internal Medicine Attending Provider Attestation/Addendum I, Danay Almendarez DO, attest that I was physically present for the [place] portions of the service and evaluated the patient with the resident and I reviewed and discussed the case with the resident and agree with the resident's findings and plans of care as documented above Patient seen and eval this a.m. He has no acute complaints at this time. He reports improvement of his wrist pain with topical NSAIDs. We are pending confirmation of his home health and start of IV antibiotics at home. Case discussed with case management, anticipate discharge within the next 24 to 48 hours once home health is arranged.
[2024-11-03] MEDS: ATORVASTATIN CALCIUM 20 MG TABLET 40 MG PO (21:11)
[2024-11-03] MEDS: INSULIN GLARGINE (Lantus) 5 UNIT/0.05 ML (PER 5 UNITS) 15 UNIT SC (21:12)
[2024-11-04] VITALS: BP 119/85; PULSE 94; RESP 18; TEMP 36.6; O2SAT 96
[2024-11-04 04:00] VITALS: BP 132/83; PULSE 93; RESP 18; TEMP 36.4; O2SAT 96
[2024-11-04] MEDS: HYDROcodone/APAP 5/325 TABLET 1 TAB PO (07:33)
[2024-11-04] MEDS: INSULIN LISPRO (AdmeLOG) 1 UNIT/0.01 ML UNIT SC (07:55)
[2024-11-04] MEDS: INSULIN LISPRO (AdmeLOG) 1 UNIT/0.01 ML UNIT 3 UNIT SC (07:56)
[2024-11-04 08:00] VITALS: BP 123/69; PULSE 90; PULSE 95; RESP 16; TEMP 36.4; O2SAT 97
[2024-11-04] MEDS: HEPARIN SOD INJ 5000 UNIT/ML VIAL SC (09:28)
[2024-11-04] MEDS: cefTRIAXone 2 GM in SODIUM CHLORIDE 0.9% (P) 50 ML IV (09:28)
[2024-11-04 09:29] VITALS: BP 123/69; PULSE 95
[2024-11-04] MEDS: Lisinopril 2.5 MG TABLET 5 MG PO (09:29)
[2024-11-04] MEDS: ZINC SULFATE 220 MG CAPSULE PO (09:29)
[2024-11-04] MEDS: DOXYCYCLINE 100 MG TABLET PO (09:29)
[2024-11-04] MEDS: ASCORBIC ACID 250 MG TABLET PO (09:29)
--- NOTE | 2024-11-04 11:14 | PC.CM ---
Patient has been accepted by [facility] and with [facility]. [facility] will be able to see patient tomorrow and [facility] will deliver abx today. Patient should be able to discharge after he gets his am dose of abx. I spoke to SS, bedside nurse, and to Dr. Almendarez to give them the update.
[2024-11-04 12:00] VITALS: BP 109/73; PULSE 75; PULSE 98; RESP 18; TEMP 36.8; O2SAT 96
--- NOTE | 2024-11-04 14:09 | ESDS_ITS ---
<Statement entered by Danay Almendarez DO - 11/05/24 07:05> I, Danay Almendarez DO, attest that I was physically present for the montilla portions of the service and evaluated the patient with the resident and I reviewed and discussed the case with the resident and agree with the resident's findings and plans of care as documented above <Statement entered by Dejon Regan MD - 11/04/24 16:13> I saw and examined the patient, and I agree with current management stated by Dr Star MD,PGY1. Plan of care was discussed with the attending physician and resident physician. Disclaimer: Despite multiple revisions, due to the dictation software being used, the document bellow may not be free of grammatical errors including phonetic/typographic errors. However, this does not deter from our commitment to providing health care in the patient's best interest in mind. Dr. Shereen MD, PGY 2 Planned Discharge Date 11/04/24 DS: Providers Provider Date of admission: 10/27/24 17:53 Primary care physician: Skyler Guerra MD Admitting Provider: Libby Graves MD Attending Provider on Admission: Danay Almendarez DO Consults: 10/27/24 16:10 Consult to General Surgery Stat Comment: Consulting Provider: Ciera Grimaldo 10/27/24 17:22 Referral Registered Dietitian Routine Comment: 10/27/24 23:36 [facility] Referral - Nutrition Routine Comment: Positive screening for nutrition needs. 10/28/24 06:27 Referral Wound Care Routine Comment: 10/29/24 13:08 Consult to Infectious Diseases Routine Comment: PICC line osteo Consulting Provider: Patrice Hill 10/30/24 08:21 Referral Physical Therapy Routine Comment: Physician Instructions: Instructions: MSK pain from laying in bed, please help him exercise and find save way to reposition himself in bed 10/30/24 14:20 Referral OP Wound Healing Dept Routine Comment: Instructions: Right 2nd -4th toe DM ulcers, S/p bedside debridement. + osteomyelitis Attending Provider on DC: Dejon Regan MD Discharging Provider: Dejon Regan MD DS: Diagnosis Problem List Completed Was Problem List Reviewed/Reconciled?: Yes Hospital Course Hospital Course Hospital course: Summary: Patient is a 39-year-old male with a past medical history of diabetes mellitus type 2 on insulin and cigarette use who was admitted on 10/27/2024 for acute osteomyelitits of the right foot s/p I&D of right lower extremity digits (2-4) on 10/29/2024. ER Course: Vitals: Temperature 99, BP 135/87, HR 88, RR 19, P O2 98% RA Foot X-ray (10/27/2024): Fracture at the base of the proximal phalanx fourth digit Prominent osteomyelitis proximal middle and distal phalanges fourth digit Also osteomyelitis ungual tuft tip 6 distal phalanges third and second digits WBC (10/27/2024): 10.2 CMP (10/27/2024): NA 131--->Na corrected 133, osmolarity 272 K4.5, BUN 18, creatinine 1, GFR greater than 60, Glucose 250, Alkaline Phosphatase 146 (H), C- Reactive Prot 2.1 Utox (10/22/2024) negative A1c (10/22/2024) 9.7, Estimate Glucose 232 (10/22/2024) Piperacillin/Tazobactam X1 Hospital Course: During hospital course, patient had incision and drainage of the second through 4 lower extremity digits of the right foot with Dr. Batista on 10/29/2024. MRI of the right foot showed osteomyelitis. Ankle-brachial index was 1.2 with triphasic flow thus within normal limit as it is under 1.3. Patient tolerated procedure well, no need for amputation at this moment. Blood cultures negative X2. Patient initially started on Zosyn and switched to ceftriaxone 2 mg IV and Doxy. Home with health, on PICC line. Antibiotics until December 11, 2024. Insturctions: -Please continue hospital antibiotics of Rocephine 2 g IV once per day and oral Doxycycline 100 mg twice per day. -Patient would need weekly CBC, ESR and CRP until completion of antibiotic course and removal of PICC line by the end of antibiotic course that is December 11, 2024 -Please follow up with wound care for diabetic foot care after Incision & Drainge for right foot. -Please start new diabetic medication degludec 15 units per day. -Please stop Lantus, previous insulin medication -Please stop metformin until you follow up with your Primary Care Provider -If you experience low blood sugar, <60, may take Baqsimi intransal to help bring up low blood sugar. -Blood Glucose goal prior to eating in the morning 80-140; please keep blood glucose under 200 after meals. -Please follow up with Primary Care Provider within 1 to 2 weeks from discharge -Please follow up with Dr. Grimaldo, general surgery, 1 to 2 weeks from from discharge -If you symptoms worsen, please return to the emergency room -if you do not have a primary care provider, you may follow up in the [facility] at [address] [place] [address] [address], [place] [address] disposition: Home Health, PICC line, antibiotics, and check labs weekly. #R. lower extremity digits (2-4 digits) s/p I&D 10/29/2024 #Osteomyelitis, improved #Cellulits, Soft Tissue Infection, improved #Diabetic Foot, improved #Sepsis, secondary to lower extremity soft tissue infection, resolved. #Diabetes Mellitus Type 2, non-insulin dependent, improving #Chronic tobacco use # Right shoulder musculoskeletal pain likely from decondiction, improving - The patient's plan was discussed with attending Dr. Almendarez and senior residents Dr. Shereen Graves MD PGY1 Internal Medicine Time Spent with Patient Time attestation: Total time spent providing and/or coordinating discharge services: at least 35 minutes of care Exam Vital Signs Temp Pulse Resp BP Pulse Ox O2 Del Method 98.3 F 75 18 109/73 96 Room Air 11/04/24 12:00 11/04/24 12:00 11/04/24 12:11/04/24 12:00 11/04/24 12:11/04/24 12:00 Narrative Exam General Appearance: Alert & Oriented X3, well-nourished male who is lying in bed in no acute distress HEENT: Skull symmetrical and atraumatic. Conjunctivae pink and moist. Pupils equal, round, reactive to light and accommodation (PERRL). External ear without lesion or discharge. Straight, nares patient, mucosa pink, no discharge. No thyroid nodule appreciated. No cervical lymphadenopathy. Cardio: Normal Rate and Rhythm with S1 and S2 heart sounds. No murmurs or extra heart sounds auscultated. No bruits on carotid auscultation. No peripheral edema or cyanosis. Lungs: Symmetric with good expansion. Chest and back non-tender. Breath sounds vesicular without crackles, wheezing or rhonchi Abdomen: Non-tender, Non-distended, Normal Reactive Bowel Sounds Neuro: Alert, cooperative, oriented to person, place, and time. Speech clear. CN grossly intact. Upper motor strength 5/5 and Lower motor strength 5/5. Sensation intact. Discharge Plan Plan Patient Disposition: Home w/HOME HEALTH Patient condition on transfer: Stable Care Plan Goals: -Please continue hospital antibiotics of Rocephine 2 g IV once per day and oral Doxycycline 100 mg twice per day. -Patient would need weekly CBC, ESR and CRP until completion of antibiotic cou rse and removal of PICC line by the end of antibiotic course that is December 11, 2024 -Please follow up with wound care for diabetic foot care after Incision & Drainge for right foot. -Please start new diabetic medication degludec 15 units per day. -Please stop Lantus, previous insulin medication -Please stop metformin until you follow up with your Primary Care Provider -If you experience low blood sugar, <60, may take Baqsimi intransal to help bring up low blood sugar. -Blood Glucose goal prior to eating in the morning 80-140; please keep blood glucose under 200 after meals. -Please follow up with Primary Care Provider within 1 to 2 weeks from discharge -Please follow up with Dr. Grimaldo, general surgery, 1 to 2 weeks from from discharge -If you symptoms worsen, please return to the emergency room -if you do not have a primary care provider, you may follow up in the [facility] at [facility] [address], [place] [address] Prescriptions/Referrals Prescriptions/Med Rec: New doxycycline hyclate 100 mg tablet 100 mg PO BID 42 Days Qty: 84 0RF Baqsimi 3 mg/actuation spray,non-aerosol 3 mg intranasal QDAY PRN (Reason: hypoglycmia) Qty: 2 0RF insulin degludec 100 unit/mL (3 mL) insulin pen 15 unit subcut HS Qty: 15 0RF ascorbic acid (vitamin C) [Vitamin C] 250 mg Tablet 250 mg PO BID 60 Days Qty: 60 0RF zinc sulfate 50 mg zinc (220 mg) Capsule 220 mg PO QDAY 60 Days Qty: 264 0RF coenzyme Q10 [CoQ-10] 100 mg capsule 100 mg PO QDAY PRN (Reason: statin induced myopathy) Qty: 30 0RF diclofenac sodium [Voltaren Arthritis Pain] 1 % gel 2 g topical QID PRN (Reason: pain) Qty: 100 0RF Rx Instructions: apply to single elbow, wrist or hand; for hand includes palm/fingers/back of hand Continued (DME) pen needle, diabetic [Pen Needle] 29 gauge x 1/2 needle See Rx Instructions .Route Qty: 100 0RF Rx Instructions: Once per day (DME) FreeStyle Shelly 3 Sensor Device See Rx Instructions .Route Qty: 2 0RF Rx Instructions: Use daily Changed metformin 1,000 mg Tablet 1,000 mg PO BID 30 Days Qty: 60 0RF Patient Comments: Patient states he takes once in awhile due to running out of insulin. Rx Instructions: Patient states he takes once in awhile due to running out of insulin. Discontinued insulin glargine 100 unit/mL (3 mL) insulin pen 10 unit subcut QPM Qty: 15 0RF Referrals: Skyler Guerra MD [Primary Care Provider] - Ciera Grimaldo MD [Physician] - Libby Graves MD [Resident] - Patient/Caregiver Discharge Instructions Other Discharge Activity Instructions:: Follow up at [facility], [address] [place] [address]. Call [phone] for appointment. Wound care to right 2nd -4th toes. May shower with foot covered than change dressing -Wash hands with soap and water, removing previous day dressing -Cleanse wounds with wound cleanser spray, pat dry with gauze. -Repeat hand washing with soap and water. -Weave single piece of dry gauze between toe webs -Apply adaptic gauze over open wounds than layer with dry gauze. -Secure with kerlix roll. Change daily and as needed for falling off or saturating Elevate foot above heart level while laying down or if swelling develops Ambulate using heel of foot and surgical shoe Education Materials: Nutrition for Wound Healing, Changing Dressing Dc, Preventing Surgical Site Infections Print Language: Danish Activity Restrictions/Additional Instructions: -Please continue hospital antibiotics of Rocephine 2 g IV once per day and oral Doxycycline 100 mg twice per day. -Patient would need weekly CBC, ESR and CRP until completion of antibiotic course and removal of PICC line by the end of antibiotic course that is December 11, 2024 -Please follow up with wound care for diabetic foot care after Incision & Drainge for right foot. -Please start new diabetic medication degludec 15 units per day. -Please stop Lantus, previous insulin medication -Please stop metformin until you follow up with your Primary Care Provider -If you experience low blood sugar, <60, may take Baqsimi intransal to help bring up low blood sugar. -Blood Glucose goal prior to eating in the morning 80-140; please keep blood glucose under 200 after meals. -Please follow up with Primary Care Provider within 1 to 2 weeks from discharge -Please follow up with Dr. Grimaldo, general surgery, 1 to 2 weeks from from discharge -If you symptoms worsen, please return to the emergency room -if you do not have a primary care provider, you may follow up in the [facility] at [address] [place] [address] [address], [place] [address] Stand Alone Forms: Ileana Award Info., Patient Portal Info Letter Discharge Order Discharge Orders: Discharge (Routine); Ordered 11/04/24 Ordered By: Danay Almendarez Quality Discharge Quality Measures VTE prophylaxis
--- NOTE | 2024-11-05 11:39 | PC.CM ---
DC summary and dc orders sent to [facility] and [facility]. HH referral is closed.
== END 2024-11-04 13:03 | disposition home health service (06) | DRG 710 ==
LOC: SERX 16:23 → S3SX 10-28 05:10 → SERHOLD 10-28 05:10
PROVIDERS: Nurse Practitioner Primary Care; Student in an Organized Health Care Education/Training Program; Emergency Provider Emergency Medicine; PCP Family Medicine; Visit Provider Internal Medicine
DX: A41.9 Sepsis, unspecified organism (principal); E11.69 Type 2 diabetes mellitus with other specified complication; M86.171 Other acute osteomyelitis, right ankle and foot; I10 Essential (primary) hypertension; F17.210 Nicotine dependence, cigarettes, uncomplicated; Z79.84 Long term (current) use of oral hypoglycemic drugs; Z79.4 Long term (current) use of insulin; L08.9 Local infection of the skin and subcutaneous tissue, unspecified; L03.115 Cellulitis of right lower limb; E11.65 Type 2 diabetes mellitus with hyperglycemia
CPT/HCPCS: 36415; 71045; 73630; 73718; 80053; 80061; 80202; 81001; 83036; 83605; 83735; 84100; 84145; 84443; 84484; 85025; 85610; 85652; 85730; 86140; 87040; 87070; 87077; 87086; 87186; 87205; 87502; 90471; 90715; 93005; 93926; 96365; 96372; 97162; 99285; C1751; C1894; J0360; J0696; J1642; J1643; J1815; J2270; J2543; J3370; J3371; J3372; J3475; J3490; J7030; J7040; J7050; A9270; J1644

== ENCOUNTER → 2024-11-13 | Outpatient (CLI) | payer MEDICAID, SELFPAY | END | disposition home or self-care (01) | PROVIDERS: PCP Family Medicine; Referring Provider Family Medicine; Visit Provider Student in an Organized Health Care Education/Training Program | DX: L97.516 Non-pressure chronic ulcer of other part of right foot with bone involvement without evidence of necrosis (principal); L97.511 Non-pressure chronic ulcer of other part of right foot limited to breakdown of skin; E11.69 Type 2 diabetes mellitus with other specified complication; Z79.4 Long term (current) use of insulin; Z72.0 Tobacco use | CPT/HCPCS: 11042; 97597; 99213; A9270; G0463 ==

== ENCOUNTER → 2024-11-27 | Outpatient (CLI) | payer MEDICAID, SELFPAY | END | disposition home or self-care (01) | LOC: SWHD 12:42 | PROVIDERS: PCP Family Medicine; Referring Provider Family Medicine; Visit Provider Surgery | DX: L97.516 Non-pressure chronic ulcer of other part of right foot with bone involvement without evidence of necrosis (principal); L97.511 Non-pressure chronic ulcer of other part of right foot limited to breakdown of skin; E11.69 Type 2 diabetes mellitus with other specified complication; Z79.4 Long term (current) use of insulin; Z72.0 Tobacco use | CPT/HCPCS: 97597; 11042; A9270 ==

== ENCOUNTER → 2024-12-05 | Outpatient (CLI) | payer MEDICAID, SELFPAY | END | disposition home or self-care (01) | LOC: SWHD 10:58 | PROVIDERS: PCP Family Medicine; Referring Provider Family Medicine; Visit Provider Student in an Organized Health Care Education/Training Program | DX: L97.516 Non-pressure chronic ulcer of other part of right foot with bone involvement without evidence of necrosis (principal); L97.511 Non-pressure chronic ulcer of other part of right foot limited to breakdown of skin; E11.69 Type 2 diabetes mellitus with other specified complication; Z79.4 Long term (current) use of insulin; Z72.0 Tobacco use | CPT/HCPCS: 97597; A9270 ==

== ENCOUNTER → 2024-12-11 | Outpatient (CLI) | payer MEDICAID, SELFPAY | END | disposition home or self-care (01) | LOC: SWHD 10:00 | PROVIDERS: PCP Family Medicine; Referring Provider Family Medicine; Visit Provider Student in an Organized Health Care Education/Training Program | DX: L97.511 Non-pressure chronic ulcer of other part of right foot limited to breakdown of skin (principal); L97.512 Non-pressure chronic ulcer of other part of right foot with fat layer exposed; E11.69 Type 2 diabetes mellitus with other specified complication; Z79.4 Long term (current) use of insulin; Z72.0 Tobacco use | CPT/HCPCS: 99213; A9270; G0463 ==

== ENCOUNTER → 2025-01-06 | Outpatient (CLI) | payer MEDICAID, SELFPAY | END | disposition home or self-care (01) | LOC: SWHD 11:17 | PROVIDERS: PCP Family Medicine; Referring Provider Family Medicine; Visit Provider Student in an Organized Health Care Education/Training Program | DX: L97.511 Non-pressure chronic ulcer of other part of right foot limited to breakdown of skin (principal); L97.512 Non-pressure chronic ulcer of other part of right foot with fat layer exposed; T81.89XA Other complications of procedures, not elsewhere classified, initial encounter; E11.69 Type 2 diabetes mellitus with other specified complication; Z79.4 Long term (current) use of insulin; Z72.0 Tobacco use; M86.9 Osteomyelitis, unspecified | CPT/HCPCS: 99213; A9270; G0463 ==

== ENCOUNTER → 2025-01-13 | Outpatient (CLI) | payer MEDICAID, SELFPAY | END | disposition home or self-care (01) | LOC: SWHD 11:19 | PROVIDERS: PCP Family Medicine; Referring Provider Family Medicine; Visit Provider Surgery | DX: L97.512 Non-pressure chronic ulcer of other part of right foot with fat layer exposed (principal); T81.89XA Other complications of procedures, not elsewhere classified, initial encounter; E11.69 Type 2 diabetes mellitus with other specified complication; Z79.4 Long term (current) use of insulin; Z72.0 Tobacco use; M86.8X7 Other osteomyelitis, ankle and foot | CPT/HCPCS: 99213; A9270; G0463 ==

== ENCOUNTER → 2025-01-20 | Outpatient (CLI) | payer MEDICAID, SELFPAY | END | disposition home or self-care (01) | LOC: SWHD 10:31 | PROVIDERS: PCP Family Medicine; Referring Provider Family Medicine; Visit Provider Student in an Organized Health Care Education/Training Program | DX: L97.512 Non-pressure chronic ulcer of other part of right foot with fat layer exposed (principal); T81.89XA Other complications of procedures, not elsewhere classified, initial encounter; E11.69 Type 2 diabetes mellitus with other specified complication; Z79.4 Long term (current) use of insulin; Z72.0 Tobacco use; M86.8X7 Other osteomyelitis, ankle and foot | CPT/HCPCS: 99212; A9270; G0463 ==

== ENCOUNTER → 2025-02-17 | Outpatient (CLI) | payer MEDICAID, SELFPAY | END | disposition home or self-care (01) | LOC: SWHD 10:26 | PROVIDERS: PCP Family Medicine; Referring Provider Family Medicine; Visit Provider Student in an Organized Health Care Education/Training Program | DX: T25.312A Burn of third degree of left ankle, initial encounter (principal); T25.322A Burn of third degree of left foot, initial encounter; L97.512 Non-pressure chronic ulcer of other part of right foot with fat layer exposed; E11.69 Type 2 diabetes mellitus with other specified complication; Z79.4 Long term (current) use of insulin; Z72.0 Tobacco use; M86.8X7 Other osteomyelitis, ankle and foot; E11.40 Type 2 diabetes mellitus with diabetic neuropathy, unspecified | CPT/HCPCS: 99214; A9270; G0463 ==

== ENCOUNTER 2025-03-18 08:07 | Outpatient (RCR) | payer MEDICAID, SELFPAY | END 2025-03-18 23:59 | disposition home or self-care (01) | LOC: SWHD 08:07 | PROVIDERS: PCP Family Medicine; Referring Provider Family Medicine; Visit Provider Student in an Organized Health Care Education/Training Program | DX: T25.312A Burn of third degree of left ankle, initial encounter (principal); T25.322A Burn of third degree of left foot, initial encounter; L97.512 Non-pressure chronic ulcer of other part of right foot with fat layer exposed; E11.69 Type 2 diabetes mellitus with other specified complication; Z79.4 Long term (current) use of insulin; M86.8X7 Other osteomyelitis, ankle and foot; E11.40 Type 2 diabetes mellitus with diabetic neuropathy, unspecified | CPT/HCPCS: 82962; 99212; A9270; G0277; G0463 ==